=== PATIENT | male | born 1960 | race Caucasian/White ===

== ENCOUNTER → 2017-12-13 | Outpatient (CLI) | payer MEDICARE, OTHER ==
[~2017-12-13] MED LIST: ACIDOPHILUS LA1 EACH PO; ALBU2.5V5 NEB; ALBU90OI INH; ALBU90OI6 INH; ALBUIS INH; AMLO5 PO; ASPI81CH PO; ATOR40TA PO; CLOP75 PO; DEEP SEA44 ML; FLUSAL5005 INH; FLUT1DIS8 INH; FOLI1 PO; FURO20 PO; HYDACE10B PO; Ipratr-Albuterol3 ML INH; LISI5 PO; LOSA25; LOSA25 PO; META800 PO; MONT4; NAPR500 PO; Naprosyn500 MG PO; OLAN5 PO; OMEP20ER; OMEPRAZOLE MAGN20 MG PO; PRED20 PO; Prilosec Otc20 MG PO; QUET25 PO; TAMS.4ER PO; THIA100 PO; TIOT18 INH; Veetids 500500 MG PO; Ventolin Soln3 ML INH; XARELTO15 MG PO
[2017-12-13 18:24] LABS: BASOPHILS ABSOLUTE AUTO 0.04 K/mm3 (0.00-0.23); BASOPHILS PERCENT AUTO 1 % (0-2); EOSINOPHILS ABSOLUTE AUTO 0.19 K/mm3 (0.00-0.68); EOSINOPHILS PERCENT AUTO 3 % (0-6); IMMATURE GRAN ABSOLUTE AUTO 0.01 K/mm3 (0.00-0.10); IMMATURE GRAN PERCENT AUTO 0 % (0-1); LYMPHOCYTES ABSOLUTE AUTO 2.62 K/mm3 (0.84-5.20); LYMPHOCYTES PERCENT AUTO 36 % (21-46); MONOCYTES ABSOLUTE AUTO 0.55 K/mm3 (0.16-1.47); MONOCYTES PERCENT AUTO 8 % (4-13); Mean Corpuscular HGB 30.1 pg (26.0-34.0); Mean Corpuscular Volume 94 fL (80-100); Mean Platelet Volume 9.7 fL (9.1-12.4); NEUTROPHILS PERCENT AUTO 54 % (41-73); Platelet Count 253 K/mm3 (150-400); RDW Coefficient Variation 13.3 % (11.7-14.2); RDW Standard Deviation 45.9 fL (35.1-46.3); Red Blood Cell Count 5.32 M/mm3 (4.30-5.90); White Blood Cell Count 7.31 K/mm3 (4.00-11.30)
[2017-12-13 18:42] LABS: Alanine Aminotransfer (ALT/SGP 32 U/L (12-78); Albumin, Blood 3.6 g/dL (3.4-5.0); Albumin/Globulin Ratio 0.9 (0.8-1.8); Alk Phos 114 U/L (50-136); Anion Gap 6 mmol/L (6-16); Aspartate Aminotrans (AST/SGOT 16 U/L (12-37); Bilirubin, Total 0.4 mg/dL (0.1-1.0); Blood Urea Nitrogen 11 mg/dL (8-24); Bun/Creatinine Ratio 10.9 (12.0-20.0); CO2, Blood 29 mmol/L (21-32); Calcium, Blood 8.7 mg/dL (8.5-10.1); Chloride, Blood 103 mmol/L (98-108); Creatinine, Blood 1.01 mg/dL (0.60-1.20); Globulin, Blood 3.9 g/dL (2.2-4.0); Glomerular Filtration Rate >60 (60-); Glucose, Blood 66 mg/dL (70-99); Potassium, Blood 4.9 mmol/L (3.5-5.5); Sodium, Blood 138 mmol/L (136-145); Total Protein, Blood 7.5 g/dL (6.4-8.2)
== END | disposition home or self-care (01) ==
LOC: LAB 12:38
PROVIDERS: Nurse Practitioner Adult Health
DX: K62.5 Hemorrhage of anus and rectum (principal); F17.200 Nicotine dependence, unspecified, uncomplicated; K21.9 Gastro-esophageal reflux disease without esophagitis; I10 Essential (primary) hypertension; J44.9 Chronic obstructive pulmonary disease, unspecified
CPT/HCPCS: 80053; 85025

== ENCOUNTER → 2018-12-26 | Outpatient (CLI) | payer MEDICARE, OTHER ==
[2018-12-26 18:36] LABS: BASOPHILS ABSOLUTE AUTO 0.05 K/mm3 (0.00-0.23); BASOPHILS PERCENT AUTO 1 % (0-2); EOSINOPHILS ABSOLUTE AUTO 0.34 K/mm3 (0.00-0.68); EOSINOPHILS PERCENT AUTO 5 % (0-6); Hematocrit 48.3 % (37.0-53.0); Hemoglobin 15.9 g/dL (13.5-17.5); IMMATURE GRAN ABSOLUTE AUTO 0.01 K/mm3 (0.00-0.10); IMMATURE GRAN PERCENT AUTO 0 % (0-1); LYMPHOCYTES PERCENT AUTO 36 % (21-46); MONOCYTES ABSOLUTE AUTO 0.62 K/mm3 (0.16-1.47); MONOCYTES PERCENT AUTO 9 % (4-13); Mean Corpuscular HGB 31.2 pg (26.0-34.0); Mean Corpuscular HGB Conc 32.9 g/dL (31.5-36.5); Mean Corpuscular Volume 95 fL (80-100); Mean Platelet Volume 10.9 fL (9.1-12.4); NEUTROPHILS ABSOLUTE AUTO 3.67 K/mm3 (1.96-9.15); NEUTROPHILS PERCENT AUTO 50 % (41-73); Platelet Count 197 K/mm3 (150-400); RDW Coefficient Variation 13.4 % (11.7-14.2); RDW Standard Deviation 47.5 fL (35.1-46.3); White Blood Cell Count 7.29 K/mm3 (4.00-11.30)
[2018-12-26 19:15] LABS: Alanine Aminotransfer (ALT/SGP 38 U/L (12-78); Albumin, Blood 4.1 g/dL (3.4-5.0); Albumin/Globulin Ratio 1.2 (0.8-1.8); Alk Phos 93 U/L (50-136); Anion Gap 8 mmol/L (6-16); Aspartate Aminotrans (AST/SGOT 21 U/L (12-37); Bilirubin, Total 0.6 mg/dL (0.1-1.0); Blood Urea Nitrogen 8 mg/dL (8-24); Bun/Creatinine Ratio 7.5 (12.0-20.0); CO2, Blood 25 mmol/L (21-32); Calcium, Blood 8.7 mg/dL (8.5-10.1); Chloride, Blood 106 mmol/L (98-108); Creatinine, Blood 1.06 mg/dL (0.60-1.20); Globulin, Blood 3.5 g/dL (2.2-4.0); Glomerular Filtration Rate >60 (60-); Glucose, Blood 97 mg/dL (70-99); Potassium, Blood 4.3 mmol/L (3.5-5.5); Sodium, Blood 139 mmol/L (136-145); Total Protein, Blood 7.6 g/dL (6.4-8.2)
[2018-12-27 16:33] LABS: CHOL/HDL RATIO 4.1; Cholesterol 164 mg/dL (50-200); HDL Cholesterol 40 mg/dL (>39); LDL/HDL RATIO 2.6; Low Density Lipoprotein Chol 102 mg/dL (0-110); Triglycerides 109 mg/dL (30-160); Very Low Density Lipoprot Chol 21 mg/dL (6-32)
== END ==
LOC: LAB 18:04 → LAB SHORT 18:04
PROVIDERS: Nurse Practitioner Family
DX: I10 Essential (primary) hypertension (principal)
CPT/HCPCS: 80053; 80061; 85025

== ENCOUNTER → 2019-11-25 | Outpatient (CLI) | payer MEDICARE, OTHER ==
[2019-11-25 17:37] LABS: BASOPHILS ABSOLUTE AUTO 0.04 K/mm3 (0.00-0.23); BASOPHILS PERCENT AUTO 0 % (0-2); EOSINOPHILS ABSOLUTE AUTO 0.28 K/mm3 (0.00-0.68); EOSINOPHILS PERCENT AUTO 3 % (0-6); Hematocrit 52.1 % (37.0-53.0); Hemoglobin 16.3 g/dL (13.5-17.5); IMMATURE GRAN ABSOLUTE AUTO 0.02 K/mm3 (0.00-0.10); IMMATURE GRAN PERCENT AUTO 0 % (0-1); LYMPHOCYTES ABSOLUTE AUTO 3.11 K/mm3 (0.84-5.20); LYMPHOCYTES PERCENT AUTO 32 % (21-46); MONOCYTES PERCENT AUTO 7 % (4-13); Mean Corpuscular HGB 30.1 pg (26.0-34.0); Mean Corpuscular HGB Conc 31.3 g/dL (31.5-36.5); Mean Corpuscular Volume 96 fL (80-100); Mean Platelet Volume 10.9 fL (9.1-12.4); NEUTROPHILS ABSOLUTE AUTO 5.54 K/mm3 (1.96-9.15); NEUTROPHILS PERCENT AUTO 57 % (41-73); Platelet Count 206 K/mm3 (150-400); RDW Coefficient Variation 13.1 % (11.7-14.2); RDW Standard Deviation 46.5 fL (35.1-46.3); Red Blood Cell Count 5.42 M/mm3 (4.30-5.90); White Blood Cell Count 9.69 K/mm3 (4.00-11.30)
[2019-11-25 17:58] LABS: Alanine Aminotransfer (ALT/SGP 37 U/L (12-78); Alk Phos 92 U/L (50-136); Anion Gap 5 mmol/L (6-16); Aspartate Aminotrans (AST/SGOT 17 U/L (12-37); Bilirubin, Total 0.5 mg/dL (0.1-1.0); Blood Urea Nitrogen 20 mg/dL (8-24); CHOL/HDL RATIO 4.4; CO2, Blood 30 mmol/L (21-32); Calcium, Blood 9.4 mg/dL (8.5-10.1); Chloride, Blood 102 mmol/L (98-108); Cholesterol 166 mg/dL (50-200); Glucose, Blood 88 mg/dL (70-99); HDL Cholesterol 38 mg/dL (>39); LDL Direct Measurement 105 mg/dL (0-130); LDL/HDL RATIO 2.9; Low Density Lipoprotein Chol 110 mg/dL (0-110); Potassium, Blood 4.5 mmol/L (3.5-5.5); Sodium, Blood 137 mmol/L (136-145); Triglycerides 88 mg/dL (30-160); Very Low Density Lipoprot Chol 17 mg/dL (6-32)
[2019-11-25 18:13] LABS: Creatinine, Blood 1.25 mg/dL (0.60-1.20); Glomerular Filtration Rate >60 (60-)
== END | disposition home or self-care (01) ==
LOC: LAB SHORT 14:55 → LAB 14:55
PROVIDERS: Nurse Practitioner Family
DX: I10 Essential (primary) hypertension (principal); E78.2 Mixed hyperlipidemia
CPT/HCPCS: 80053; 80061; 83721; 85025

== ENCOUNTER 2020-11-08 09:59 | Inpatient (IN) | payer MEDICARE, OTHER ==
[~2020-11-08] VITALS: Ht 170.2 cm; Wt 79.8 kg
[2020-11-08 10:22] LABS: BASOPHILS ABSOLUTE AUTO 0.01 K/mm3 (0.00-0.23); BASOPHILS PERCENT AUTO 0 % (0-2); EOSINOPHILS ABSOLUTE AUTO 0.01 K/mm3 (0.00-0.68); EOSINOPHILS PERCENT AUTO 0 % (0-6); Hematocrit 45.5 % (37.0-53.0); Hemoglobin 14.5 g/dL (13.5-17.5); IMMATURE GRAN ABSOLUTE AUTO 0.14 K/mm3 (0.00-0.10); IMMATURE GRAN PERCENT AUTO 1 % (0-1); LYMPHOCYTES ABSOLUTE AUTO 1.08 K/mm3 (0.84-5.20); LYMPHOCYTES PERCENT AUTO 8 % (21-46); MONOCYTES ABSOLUTE AUTO 0.63 K/mm3 (0.16-1.47); MONOCYTES PERCENT AUTO 5 % (4-13); Mean Corpuscular HGB 30.3 pg (26.0-34.0); Mean Corpuscular HGB Conc 31.9 g/dL (31.5-36.5); Mean Corpuscular Volume 95 fL (80-100); Mean Platelet Volume 8.8 fL (9.1-12.4); NEUTROPHILS ABSOLUTE AUTO 11.18 K/mm3 (1.96-9.15); NEUTROPHILS PERCENT AUTO 86 % (41-73); Platelet Count 322 K/mm3 (150-400); RDW Coefficient Variation 13.4 % (11.7-14.2); RDW Standard Deviation 47.4 fL (35.1-46.3); Red Blood Cell Count 4.78 M/mm3 (4.30-5.90); White Blood Cell Count 13.05 K/mm3 (4.00-11.30)
[2020-11-08] MEDS ORDERED: SYMBICORT 160-4.6 GM INH (10:30)
[2020-11-08] MEDS ORDERED: LOSA50 PO (10:31)
[2020-11-08] MEDS ORDERED: OMEP20ER PO (10:31)
[2020-11-08] MEDS ORDERED: FLUT1DIS2 (10:32)
[2020-11-08] MEDS ORDERED: MONT10T PO (10:32)
[2020-11-08 10:41] LABS: Alanine Aminotransfer (ALT/SGP 35 U/L (12-78); Albumin/Globulin Ratio 1.1 (0.8-1.8); Alk Phos 79 U/L (50-136); Anion Gap 9 mmol/L (6-16); Aspartate Aminotrans (AST/SGOT 20 U/L (12-37); Bilirubin, Total 0.4 mg/dL (0.1-1.0); Blood Urea Nitrogen 24 mg/dL (8-24); Bun/Creatinine Ratio 19.8 (12.0-20.0); CO2, Blood 21 mmol/L (21-32); Chloride, Blood 104 mmol/L (98-108); Creatinine, Blood 1.21 mg/dL (0.60-1.20); Globulin, Blood 3.7 g/dL (2.2-4.0); Glomerular Filtration Rate >60 (60-); Glucose, Blood 134 mg/dL (70-99); Potassium, Blood 4.5 mmol/L (3.5-5.5); Sodium, Blood 134 mmol/L (136-145); Total Protein, Blood 7.7 g/dL (6.4-8.2); Troponin I <0.015 ng/mL (0.000-0.040)
[2020-11-08 11:39] LABS: Influenza A, PCR Negative (NEGATIVE); Influenza B, PCR Negative (NEGATIVE); Resp Syncytial Virus, PCR Negative (NEGATIVE); SARS-Cov-2 (COVID-19) PCR, MMC Negative (NEGATIVE)
[2020-11-08] MEDS ORDERED: Ventolin/Prove6.7 GM INH (14:15)
[2020-11-08] MEDS ORDERED: Cetirizine HCl10 MG PO (14:15)
[2020-11-08 14:43] LABS: PCO2 Arterial 38.1 mmHg (35-45); PO2 Arterial 84.6 mmHg (80-100); pH Blood Arterial 7.38 (7.35-7.45)
--- NOTE | 2020-11-08 19:21 | NUR ---
PT ARRIVED IN THE UNIT VIA STRETCHER FROM [facility], REPORT RECEIVED FROM RHIANNA LEMUS. PT IS HERE FOR COPD EXA. PT WAS ON RA UPON ARRIVAL SATS ABOVE 95% PT HAS SHALLOW BREATHING WITH ACCESSORY MUSCLE USE, PT C/O SOB/SOB WITH PAIN WORSENS WITH COUGH. 1L OF O2 APPLIED FOR SUPPORT PT DESATS ONE TIME TO LOW 90'S DR HERNANDEZ IS AWARE ORDERED ANXIETY MEDS WELL. HRR SINUS TACH 110'S, BP SYSTOLIC 150'S, AFEBRILE. PT WAS GIVEN IV SOLUMEDROL. PT IS ALERT AND ORIENTED AT BASELINE SBA FOR TRANSFERS. NO OTHER ISSUES ENCOUNTERED UNTIL THE END OF SHIFT, PT WAS ABLE TO TOLERATE EATING DINNER WITHOUT DESATING. PT REMAINS IN BED CALL LIGHTS IN REACH REPORT GIVEN TO MAGEN LEMUS
[2020-11-09 03:49] LABS: BASOPHILS ABSOLUTE AUTO 0.02 K/mm3 (0.00-0.23); BASOPHILS PERCENT AUTO 0 % (0-2); EOSINOPHILS ABSOLUTE AUTO 0.01 K/mm3 (0.00-0.68); EOSINOPHILS PERCENT AUTO 0 % (0-6); Hematocrit 45.8 % (37.0-53.0); Hemoglobin 14.4 g/dL (13.5-17.5); IMMATURE GRAN PERCENT AUTO 1 % (0-1); LYMPHOCYTES ABSOLUTE AUTO 0.88 K/mm3 (0.84-5.20); LYMPHOCYTES PERCENT AUTO 6 % (21-46); MONOCYTES ABSOLUTE AUTO 0.38 K/mm3 (0.16-1.47); MONOCYTES PERCENT AUTO 3 % (4-13); Mean Corpuscular HGB 29.9 pg (26.0-34.0); Mean Corpuscular HGB Conc 31.4 g/dL (31.5-36.5); Mean Corpuscular Volume 95 fL (80-100); Mean Platelet Volume 8.8 fL (9.1-12.4); NEUTROPHILS PERCENT AUTO 90 % (41-73); Platelet Count 313 K/mm3 (150-400); RDW Coefficient Variation 13.5 % (11.7-14.2); RDW Standard Deviation 47.9 fL (35.1-46.3); Red Blood Cell Count 4.82 M/mm3 (4.30-5.90); White Blood Cell Count 15.49 K/mm3 (4.00-11.30)
[2020-11-09 04:09] LABS: Alanine Aminotransfer (ALT/SGP 32 U/L (12-78); Alk Phos 79 U/L (50-136); Anion Gap 5 mmol/L (6-16); Aspartate Aminotrans (AST/SGOT 20 U/L (12-37); Bilirubin, Total 0.5 mg/dL (0.1-1.0); Blood Urea Nitrogen 28 mg/dL (8-24); CO2, Blood 27 mmol/L (21-32); Chloride, Blood 103 mmol/L (98-108); Creatinine, Blood 1.27 mg/dL (0.60-1.20); Globulin, Blood 3.9 g/dL (2.2-4.0); Glomerular Filtration Rate >60 (60-); Glucose, Blood 127 mg/dL (70-99); Potassium, Blood 4.7 mmol/L (3.5-5.5); Sodium, Blood 135 mmol/L (136-145); Total Protein, Blood 7.9 g/dL (6.4-8.2)
--- NOTE | 2020-11-09 05:55 | NUR ---
SHIFT SUMMARY PT ALERT AND ORIENTED X 4. PT ANXIOUS AT TIMES. HR TACHYCARDIC AT TIMES. BP STABLE. PT REPORTS PAIN T/O LUNGS AND INTO BACK. STATES PAIN "HAS LASTED FOR YEARS, WORSE D/T FIRES." PHYSICIAN INFORMED OF PT'S PAIN LEVEL. MEDICATION PRESCRIBED PER EMAR. OXYGEN SATURATION MAINTAINED ABOVE 92% ON 1-2 L OF OXYGEN VIA NC. PT UNABLE TO SLEEP T/O SHIFT. PT ABLE TO TURN SELF NEEDED. SBA. WILL CONTINUE TO MONITOR UNTIL REPORT GIVEN TO DAYSHIFT RN.
--- NOTE | 2020-11-09 10:17 | NUR ---
pt npo, just ice chips and medications, informed pt, wrote on board, call received from [employer], pt disconected from IV and assisted into for transport to ct scan
--- NOTE | 2020-11-09 19:28 | NUR ---
a+o, no acute changes noted during shift, continues to need to be coached on dealing with pain and breathing, call light in reach, medicated as prescribed, bsr shared with noc nurse and pt
--- NOTE | 2020-11-10 06:22 | NUR ---
SHIFT SUMMARY PT ALERT AND ORIENTED X 4. PT ANXIOUS AT TIMES. MEDICATED PER EMAR. PT PAINFUL AT TIMES IN BACK AND LUNGS. STATES PAIN HAS LASTED "LONG TIME, SINCE FIRES." MEDICATED PER EMAR. PT IMPROVES WITH THESE INTERVENTIONS. PT ABLE TO SLEEP T/O SHIFT IN RECLINER CHAIR. HR STABLE. BP STABLE. REPORTS NO CP OR PRESSURE. PT ABLE TO TURN SELF NEEDED FOR COMFORT. WILL CONTINUE TO MONITOR UNTIL REPORT GIVEN TO DAYSHIFT RN.
--- NOTE | 2020-11-10 11:57 | NUR ---
ASSUMED CARE FROM NOC RN THIS MORNING PT HAS BEEN ANXIOUS AND REPORTS FEELING PAIN IN HIS MUSCLES THROUGHOUT HIS ABD AND BACK FROM COUGHING; PT STATES "IT'S NOT NEW, IT JUST GOT WORSE AFTER THE FIRES, I LOST MY TRAILER HOME DURING THEM" PT HAS BEEN GIVEN PAIN AND ANXIETY MEDICATIONS AND IS STILL MOANING AND YELLING IN PAIN; A PHONE CALL WILL BE MADE TO TOUCH BASE WITH DR. HERNANDEZ. VS STABLE, PT TOOK MORNING MEDICATIONS AND HAS BEEN COOPERATIVE WITH CARE. PT HAS EXPIRATORY WHEEZING AND HAS MAINTAINED SAT ABOVE 92% ON 1-2L OF O2 VIA NC. PT CALLS APPROPRIATELY
--- NOTE | 2020-11-10 14:59 | NUR ---
Met pt. sitting up in a chair and watching T.V pt. reports doing fine encouraged pt and offered prayers
--- NOTE | 2020-11-10 18:54 | NUR ---
SHIFT SUMMARY PT HAS BEEN PAINFUL THROUGHOUT THE DAY, MOANING AND GROANING, THE TRAMADOL HELPED REPORTED BY THE PT. PT STATES HIS PAIN IS IN HIS ABD AND BACK AND COMES ON WHEN HE IS COUGHING DUE TO THE COPD. VS HAVE BEEN STABLE, NSR, FREQUENT NEB TREATMENTS HE HAS EXPIRATORY WHEEZING. PT SPENT THE DAY IN THE CHAIR. FREQUENT OFFERS FOR REPOSITIONING, HEATING PADS, PILLOWS TO SQUEEZE WHEN COUGHING WERE ALL MADE AND THE PT REFUSED STATING "NONE OF IT WORKS" PT IS NOW IN BED RESTING
--- NOTE | 2020-11-10 21:40 | NUR ---
called Nathan LEMUS for transfer report on PT being tx for copd with steroids nebs & oxygen. Await transfer to room 303
--- NOTE | 2020-11-10 21:45 | NUR ---
REPORT GIVEN TO MARIAH ACLL ON MEDICAL FLOOR.
[2020-11-11 05:47] LABS: BASOPHILS ABSOLUTE AUTO 0.03 K/mm3 (0.00-0.23); BASOPHILS PERCENT AUTO 0 % (0-2); EOSINOPHILS ABSOLUTE AUTO 0.01 K/mm3 (0.00-0.68); EOSINOPHILS PERCENT AUTO 0 % (0-6); Hematocrit 49.1 % (37.0-53.0); Hemoglobin 15.1 g/dL (13.5-17.5); IMMATURE GRAN ABSOLUTE AUTO 0.19 K/mm3 (0.00-0.10); IMMATURE GRAN PERCENT AUTO 1 % (0-1); LYMPHOCYTES ABSOLUTE AUTO 0.65 K/mm3 (0.84-5.20); LYMPHOCYTES PERCENT AUTO 4 % (21-46); MONOCYTES ABSOLUTE AUTO 0.54 K/mm3 (0.16-1.47); MONOCYTES PERCENT AUTO 3 % (4-13); Mean Corpuscular HGB 29.4 pg (26.0-34.0); Mean Corpuscular HGB Conc 30.8 g/dL (31.5-36.5); Mean Corpuscular Volume 96 fL (80-100); Mean Platelet Volume 9.1 fL (9.1-12.4); NEUTROPHILS ABSOLUTE AUTO 16.19 K/mm3 (1.96-9.15); NEUTROPHILS PERCENT AUTO 92 % (41-73); Platelet Count 310 K/mm3 (150-400); RDW Coefficient Variation 13.4 % (11.7-14.2); Red Blood Cell Count 5.13 M/mm3 (4.30-5.90); White Blood Cell Count 17.61 K/mm3 (4.00-11.30)
[2020-11-11 06:06] LABS: Anion Gap 6 mmol/L (6-16); Blood Urea Nitrogen 53 mg/dL (8-24); Bun/Creatinine Ratio 42.1 (12.0-20.0); CO2, Blood 30 mmol/L (21-32); Calcium, Blood 8.8 mg/dL (8.5-10.1); Chloride, Blood 101 mmol/L (98-108); Creatinine, Blood 1.26 mg/dL (0.60-1.20); Glomerular Filtration Rate >60 (60-); Glucose, Blood 121 mg/dL (70-99); Potassium, Blood 4.2 mmol/L (3.5-5.5); Sodium, Blood 137 mmol/L (136-145)
--- NOTE | 2020-11-11 17:16 | NUR ---
SHIFT SUMMARY- PT ALERT, PLESANT AND COOPERATIVE. HE IS EATING AND DRINKING WELL. HIS LUNG SOUNDS ARE WHEEZY. HE IS USING THE URINAL AT BEDSIDE. PRN PAIN MEDICATION PRN. HE IS WORKING WITH RT RECIEVING BREATHING TREATMENTS. HE WAS INSTRUCTED ON USING I.S. AND FLUTTER BY RT TODAY. HIS BED IS IN THE LOW POSITION AND HIS CALL LIGHT IS WITHIN REACH.
--- NOTE | 2020-11-12 04:27 | NUR ---
60 year old [place] continues on oxygen 1 l nc for dyspnea. He is less anxious more alert this shift. Up to BSC or uses urinal for toileting. Medicated several times for pain with helpful effect, once for anxiety with good relief. Appears to lack support recently lost home in [place]. DC planning for safe dc plan needed.
--- NOTE | 2020-11-12 16:45 | NUR ---
SHIFT SUMMARY- PT IS ALERT, PLESANT AND COOPERATIVE. HE IS EATING AND DRINKING WELL. WENT FOR A XRAY THIS MORNING. HE IS RECIEVING PAIN MEDICATIONS NEEDED. WORKING WITH RT. BED IS IN THE LOW POSITION AND THE CALL LIGHT IS WITHIN REACH.
--- NOTE | 2020-11-13 04:43 | NUR ---
SHIFT SUMMARY ASSUMED CARE OF PT AT 1900. PT IS A/OX3, PT MUMBLES WHEN HE TALKS. HEART SOUNDS REGULAR, LUNG SOUNDS HAVE EXPIRATORY WHEEZES, PT IS ON 1L NC [place], PT HAS HAD BREATHING TREATMENTS THIS PM FROM RT. PT HAS PAIN IN HIS R CHEST, PT STATES THAT HE HAS A CXR YESTERDAY BUT STATES THAT HE DOESNT KNOW THE RESULTS, PT MEDICATED PER EMAR FOR PAIN. PT IS 1P TO BS AND USES URINAL. PT HAS PITTING EDEMA IN EXTREMITES. PT DID NOT SLEEP VERY WELL DURING THE NIGHT. PT ONLY SLEPT ABOUT 3 HOURS. CALL LIGHT IN REACH, BED IN LOWEST POSTION.
[2020-11-13 04:57] LABS: BASOPHILS ABSOLUTE AUTO 0.02 K/mm3 (0.00-0.23); BASOPHILS PERCENT AUTO 0 % (0-2); EOSINOPHILS ABSOLUTE AUTO 0.01 K/mm3 (0.00-0.68); EOSINOPHILS PERCENT AUTO 0 % (0-6); Hematocrit 44.9 % (37.0-53.0); Hemoglobin 14.5 g/dL (13.5-17.5); IMMATURE GRAN ABSOLUTE AUTO 0.14 K/mm3 (0.00-0.10); IMMATURE GRAN PERCENT AUTO 1 % (0-1); LYMPHOCYTES ABSOLUTE AUTO 0.63 K/mm3 (0.84-5.20); LYMPHOCYTES PERCENT AUTO 5 % (21-46); MONOCYTES ABSOLUTE AUTO 0.59 K/mm3 (0.16-1.47); MONOCYTES PERCENT AUTO 5 % (4-13); Mean Corpuscular HGB 30.5 pg (26.0-34.0); Mean Corpuscular HGB Conc 32.3 g/dL (31.5-36.5); Mean Corpuscular Volume 95 fL (80-100); Mean Platelet Volume 9.5 fL (9.1-12.4); NEUTROPHILS ABSOLUTE AUTO 10.44 K/mm3 (1.96-9.15); NEUTROPHILS PERCENT AUTO 88 % (41-73); Platelet Count 260 K/mm3 (150-400); RDW Coefficient Variation 13.3 % (11.7-14.2); RDW Standard Deviation 46.5 fL (35.1-46.3); Red Blood Cell Count 4.75 M/mm3 (4.30-5.90); White Blood Cell Count 11.83 K/mm3 (4.00-11.30)
[2020-11-13 05:27] LABS: Albumin, Blood 3.1 g/dL (3.4-5.0); Anion Gap 5 mmol/L (6-16); Blood Urea Nitrogen 48 mg/dL (8-24); Bun/Creatinine Ratio 48.6 (12.0-20.0); CO2, Blood 32 mmol/L (21-32); Calcium, Blood 8.3 mg/dL (8.5-10.1); Chloride, Blood 102 mmol/L (98-108); Creatinine, Blood 0.99 mg/dL (0.60-1.20); Glomerular Filtration Rate >60 (60-); Glucose, Blood 120 mg/dL (70-99); Phosphorus, Blood 3.1 mg/dL (2.5-4.9); Potassium, Blood 4.1 mmol/L (3.5-5.5); Sodium, Blood 139 mmol/L (136-145)
--- NOTE | 2020-11-13 18:34 | NUR ---
SHIFT SUMMARY. A&OX3, PLEASANT AND COOPERATIVE WITH CARE. PT WITH PAIN TO R CHEST WALL/RIBS THAT INCREASES WITH COUGHING, PT REPORTED PAIN REDUCED AFTER APPLICATION OF LIDOCAINE PATCH. PT REPORTEDLY "CHOKED" ON WATER AND WAS FOUND COUGHING AGGRESSIVLEY, PAIN INCREASED, PRN OXYCODONE GIVEN WITH GOOD RELIEF. LUNGS WITH SLIGHT WHEEZING TO R LUNG GOMES. CONTINUES WITH 1L O2 NC. NO OTHER CHANGES OR CONCERNS.
--- NOTE | 2020-11-14 04:23 | NUR ---
SHIFT SUMMARY A/O, ABLE TO MAKE NEEDS KNOWN. COOPERATIVE WITH CARE. CALLS AND ANSWERS QUESTIONS APPROPRIATELY. C/O PAIN/DISCOMFORT TO RCW; MEDICATED PER EMAR. INDEPENDENT WITH URINAL AND TO BSC. DID NOT APPEAR TO REST MUCH OVERNIGHT. BT REQUESTS FROM RT T/O NIGHT. CONTINUES TO HAVE EXPIRATORY WHEEZING; CONTINUES TO UTILIZE INCENTIVE SPIROMETER AND FLUTTER VALVE. NO OTHER ACUTE CHANGES NOTED OVERNIGHT. BED REMAINS IN LOWEST POSITION. CALL LIGHT AND BELONGINGS WITHIN REACH. REPORT TO ONCOMING RN.
[2020-11-14] MEDS ORDERED: ACET325 PO (16:26)
[2020-11-14] MEDS ORDERED: ASPI81CH PO (16:26)
[2020-11-14] MEDS ORDERED: TUMS500 MG PO (16:27)
[2020-11-14] MEDS ORDERED: BUSP5 PO (16:27)
[2020-11-14] MEDS ORDERED: GUAI600T33 PO (16:28)
[2020-11-14] MEDS ORDERED: LIDO700A20 TOP (16:29)
[2020-11-14] MEDS ORDERED: ROXICODONE5 MG PO (16:29)
[2020-11-14] MEDS ORDERED: Prednisone10 MG PO (16:30)
--- NOTE | 2020-11-14 18:07 | NUR ---
DISCHARGE NOTE PT A&O. PT USED URINAL WHILE IN ROOM. PT WORKED WITH RT DURING THE SHIFT AND WAS DETERMINED HE DID NOT NEED O2 WHILE AT HOME. PT WAS FREINDLY AND COPERATIVE DURING SHIFT. REMOVED PT IV AND WENT OVER PT DISCHARGE PACKET WITH HIM. DISCUSSED NEW MED WITH PT AND LAST TIME MEDICATION WAS GIVEN. PT WAS PICKED UP BY FRIEND AND TAKEN OFF THE FLOOR VIA WHEELCHAIR BY THE COMMERCIAL COUNSEL TO THE FRIENDS CAR. PT TOOK BELONINGS WITH HIM. PT GIVEN HARD SCRIPT AND PLACED IT IN PERSONAL BAG.
== END 2020-11-14 18:03 | disposition home or self-care (01) | DRG 189 ==
LOC: ER 09:59 → PCU 14:05 → MEDS 11-10 22:21
PROVIDERS: Emergency Medicine; Internal Medicine; ADMIT Internal Medicine
DX: J96.01 Acute respiratory failure with hypoxia (principal); Z86.73 Personal history of transient ischemic attack (TIA), and cerebral infarction without residual deficits; F17.210 Nicotine dependence, cigarettes, uncomplicated; J43.9 Emphysema, unspecified; Z20.828 Contact with and (suspected) exposure to other viral communicable diseases; R07.81 Pleurodynia; I10 Essential (primary) hypertension; F41.1 Generalized anxiety disorder; J20.9 Acute bronchitis, unspecified
CPT/HCPCS: 0241U; 36415; 36600; 71045; 71046; 80048; 80053; 80069; 82803; 83880; 84145; 84484; 85025; 93005; 93010; 94640; 94644; 94667; 94668; 94760; 94761; 94762; 96365; 96366; 97116; 97161; 97165; 99285-25; 99406; A9270; A9270-GY; J1650; J1885; J2920; J2930; J3475

== ENCOUNTER 2021-05-11 10:32 | Inpatient (IN) | payer MEDICARE, OTHER ==
[~2021-05-11] VITALS: Ht 170.2 cm; Wt 77.3 kg
[~2021-05-11 10:32] MED LIST changes: +ACET325 PO; +Aspirin EC81 MG PO; +BUSP5 PO; +Cetirizine HCl10 MG PO; +FLUT1DIS2; +GUAI600T33 PO; +LIDO700A20 TOP; +LOSA50 PO; +MONT10T PO; +OMEP20ER PO; +Prednisone10 MG PO; +ROXICODONE5 MG PO; +SYMBICORT 160-4.6 GM INH; +TUMS500 MG PO; +Ventolin/Prove6.7 GM INH
[2021-05-11] MEDS ORDERED: BENADRYL25 MG PO (10:49)
[2021-05-11 11:29] LABS: BASOPHILS ABSOLUTE AUTO 0.04 K/mm3 (0.00-0.23); BASOPHILS PERCENT AUTO 0 % (0-2); EOSINOPHILS ABSOLUTE AUTO 0.04 K/mm3 (0.00-0.68); EOSINOPHILS PERCENT AUTO 0 % (0-6); Hematocrit 44.8 % (37.0-53.0); Hemoglobin 14.3 g/dL (13.5-17.5); IMMATURE GRAN ABSOLUTE AUTO 0.18 K/mm3 (0.00-0.10); IMMATURE GRAN PERCENT AUTO 1 % (0-1); LYMPHOCYTES ABSOLUTE AUTO 1.06 K/mm3 (0.84-5.20); LYMPHOCYTES PERCENT AUTO 5 % (21-46); MONOCYTES ABSOLUTE AUTO 1.36 K/mm3 (0.16-1.47); MONOCYTES PERCENT AUTO 7 % (4-13); Mean Corpuscular HGB Conc 31.9 g/dL (31.5-36.5); Mean Corpuscular Volume 94 fL (80-100); Mean Platelet Volume 9.4 fL (9.1-12.4); NEUTROPHILS ABSOLUTE AUTO 17.02 K/mm3 (1.96-9.15); NEUTROPHILS PERCENT AUTO 86 % (41-73); Platelet Count 273 K/mm3 (150-400); RDW Coefficient Variation 14.7 % (11.7-14.2); RDW Standard Deviation 51.1 fL (35.1-46.3); Red Blood Cell Count 4.76 M/mm3 (4.30-5.90)
[2021-05-11 12:02] LABS: Albumin, Blood 3.4 g/dL (3.4-5.0); Albumin/Globulin Ratio 0.7 (0.8-1.8); Bilirubin, Total 0.8 mg/dL (0.1-1.0); Bun/Creatinine Ratio 13.1 (12.0-20.0); Calcium, Blood 8.9 mg/dL (8.5-10.1); Creatinine, Blood 1.6 mg/dL (0.60-1.20); Globulin, Blood 4.8 g/dL (2.2-4.0); Potassium, Blood 4.2 mmol/L (3.5-5.5); Total Protein, Blood 8.2 g/dL (6.4-8.2)
[2021-05-11] MEDS ORDERED: IPRAT-ALBUT 0.5-3 ML NEB (12:21)
[2021-05-11] MEDS ORDERED: Ventolin/Prove6.7 GM INH (12:23)
[2021-05-11 12:48] LABS: PCO2 Arterial 39.2 mmHg (35-45); PO2 Arterial 134 mmHg (80-100); pH Blood Arterial 7.39 (7.35-7.45)
[2021-05-11] MEDS ORDERED: OMEP20ER PO (17:12)
--- NOTE | 2021-05-11 19:16 | NUR ---
PT ADMITTED TO PCU FROM ED FOR COPD EXACERBATION. PT ARRIVES A&OX4, TACHYPNEIC, RECEIVING O2 VIA NC AT 5 L/MIN AND MAINTAINING O2 SATS >92%, EXP WHEEZES T/OUT, SINUS TACH ON MONITOR. PT STATES IMPROVEMENT TO CHEST PAIN AND SOB THAT HE FELT PRIOR TO ADMISSION. CARDIAC DIET HAS BEEN ORDERD, PT PROVIDED WITH DINNER TRAY. NO SKIN ISSUES NOTED, NS INFUSING W/OUT DIFFICULTY. REPORT HAS BEEN GIVEN TO MARIAH HOPKINS.
[2021-05-11 20:48] LABS: Source, Urine Clean Catch
[2021-05-11 20:51] LABS: Bilirubin, Urine Neg (Neg); Blood, Urine 2+ (Neg); Glucose Qualitative, Urine Neg (Neg); Ketones, Urine 1+ (Neg); Leukocyte Esterase, Urine 3+ (Neg); Nitrite, Urine Pos (Neg); Protein, Urine 2+ (Neg); Urobilinogen, Urine NORM (Normal)
[2021-05-11 21:01] LABS: Appearance, Urine Hazy (Clear); Color, Urine Yellow (P-Yellow)
[2021-05-11 21:03] LABS: Bacteria Many /hpf; Squamous Epithelial Cells Rare /hpf (Few); White Blood Cells, Urine TNTC /hpf (0-5)
[2021-05-11 21:11] LABS: U Amphetamine Screen Not Detected; U Barbituate Screen Not Detected; U Benzodiazapine Screen Not Detected; U Buprenorphine Screen Not Detected; U Cannabinoids Screen DETECTED; U Cocaine Screen Not Detected; U Methadone Screen Not Detected; U Methamphetamine Screen Not Detected; U Opiates Screen DETECTED; U Oxycodone Screen Not Detected; U Phencyclidine Screen Not Detected; U Propoxyphene Screen Not Detected
[2021-05-12 01:31] LABS: BASOPHILS ABSOLUTE AUTO 0.01 K/mm3 (0.00-0.23); BASOPHILS PERCENT AUTO 0 % (0-2); EOSINOPHILS PERCENT AUTO 0 % (0-6); Hematocrit 42.4 % (37.0-53.0); Hemoglobin 13.6 g/dL (13.5-17.5); IMMATURE GRAN ABSOLUTE AUTO 0.05 K/mm3 (0.00-0.10); IMMATURE GRAN PERCENT AUTO 0 % (0-1); LYMPHOCYTES ABSOLUTE AUTO 0.62 K/mm3 (0.84-5.20); LYMPHOCYTES PERCENT AUTO 5 % (21-46); MONOCYTES ABSOLUTE AUTO 0.23 K/mm3 (0.16-1.47); MONOCYTES PERCENT AUTO 2 % (4-13); Mean Corpuscular HGB 30.4 pg (26.0-34.0); Mean Corpuscular HGB Conc 32.1 g/dL (31.5-36.5); Mean Corpuscular Volume 95 fL (80-100); Mean Platelet Volume 9.4 fL (9.1-12.4); NEUTROPHILS ABSOLUTE AUTO 11.36 K/mm3 (1.96-9.15); NEUTROPHILS PERCENT AUTO 93 % (41-73); Platelet Count 247 K/mm3 (150-400); RDW Coefficient Variation 14.6 % (11.7-14.2); RDW Standard Deviation 51.3 fL (35.1-46.3); Red Blood Cell Count 4.47 M/mm3 (4.30-5.90); White Blood Cell Count 12.27 K/mm3 (4.00-11.30)
[2021-05-12 01:51] LABS: Alanine Aminotransfer (ALT/SGP 17 U/L (12-78); Albumin, Blood 3.1 g/dL (3.4-5.0); Albumin/Globulin Ratio 0.7 (0.8-1.8); Alk Phos 85 U/L (50-136); Anion Gap 9 mmol/L (6-16); Aspartate Aminotrans (AST/SGOT 19 U/L (12-37); Bilirubin, Total 0.3 mg/dL (0.1-1.0); Blood Urea Nitrogen 27 mg/dL (8-24); Bun/Creatinine Ratio 19.7 (12.0-20.0); CO2, Blood 22 mmol/L (21-32); Calcium, Blood 8.4 mg/dL (8.5-10.1); Chloride, Blood 104 mmol/L (98-108); Creatinine, Blood 1.37 mg/dL (0.60-1.20); Globulin, Blood 4.7 g/dL (2.2-4.0); Glomerular Filtration Rate 56 (60-); Glucose, Blood 147 mg/dL (70-99); Magnesium, Blood 2.3 mg/dL (1.6-2.4); Sodium, Blood 135 mmol/L (136-145); Total Protein, Blood 7.8 g/dL (6.4-8.2); Troponin I <0.015 ng/mL (0.000-0.040)
--- NOTE | 2021-05-12 19:32 | NUR ---
SHIFT SUMMARY PT HAS BEEN COOPERATIVE WITH CARE TODAY. PT HAS RECEIVED FREQUENT DUONEBS AND AT LEAST 2, HOUR LONG ALBUTERAL NEB TREATMENTS. PT CONTINUES TO HAVE WHEEZING AND INCREASED RR. VS OTHERWISE STABLE. PT HAD SOME BOUTS OF ANXIETY TODAY BUT WAS ABLE TO CALM HIMSELF INDEPENDENTLY. PT ALSO REPORTED A HEADACHE AND WAS TREATED PER EMAR. PT IS RESTING IN BED AT THIS TIME
--- NOTE | 2021-05-13 05:33 | NUR ---
SHIFT SUMMARY PT A&OX4, PT ANXIOUS, APPEARS SHAKY, "AMPED UP". SP02>92% ON 5L NC. PT CONSTANTLY ASKED FOR BREATHING TREATMENTS T/O NIGHT.RT IN ROOM MULTIPLE TIMES. TELEMETRY READS ST/SR W/ PACS. HR 90'S-120'S. HR INCREASED TO 130S WHEN UP TO THE BSC. PT C/O OF CHEST/BACK PAIN, STATES D/T BREATHING AND COUGHING LABOR. MEDICATED PER EMAR. PT C/O OF HEART BURN. CALL PLACED TO MD HERNANDEZ. MD HERNANDEZ W/ ORDERS FOR TUMS. TOOK PT TUMS AND PT REFUSED, STATES HE "IS JUST BACKED UP". STATES HE HASNT HAD A BM SINCE MONDAY. PT MOANED/ C/O OF BREATHING T/O SHIFT, THOUGH SATS WERE ABOVE 92%. PT MADE COMMENTS LIKE, "THEY ASKED IN THE ER IF I WANT THEM TO SAVE MY LIFE, I SAID YES. NOW I WOULD SAY NO." AND "IF I HAD A GUN, I WOULD SHOOT MYSELF." CALL PLACED TO MD HERNANDEZ. MD HERNANDEZ W/ ORDERS FOR XANEX, SEE EMAR. FLUIDS INFUSED THIS SHIFT PER EMAR. PT DID NOT SLEEP T/O SHIFT, SAT UP IN BED AND WATCHED HIS PHONE. CALL LIGHT IN REACH. WILL GIVE REPORT TO ONCOMING NURSE.
[2021-05-13 08:30] LABS: BASOPHILS ABSOLUTE AUTO 0.01 K/mm3 (0.00-0.23); BASOPHILS PERCENT AUTO 0 % (0-2); EOSINOPHILS PERCENT AUTO 0 % (0-6); Hematocrit 40.6 % (37.0-53.0); Hemoglobin 12.6 g/dL (13.5-17.5); IMMATURE GRAN ABSOLUTE AUTO 0.09 K/mm3 (0.00-0.10); IMMATURE GRAN PERCENT AUTO 1 % (0-1); LYMPHOCYTES ABSOLUTE AUTO 0.41 K/mm3 (0.84-5.20); LYMPHOCYTES PERCENT AUTO 3 % (21-46); MONOCYTES ABSOLUTE AUTO 0.36 K/mm3 (0.16-1.47); MONOCYTES PERCENT AUTO 3 % (4-13); Mean Corpuscular HGB 30.1 pg (26.0-34.0); Mean Corpuscular Volume 97 fL (80-100); Mean Platelet Volume 9.4 fL (9.1-12.4); NEUTROPHILS PERCENT AUTO 93 % (41-73); Platelet Count 256 K/mm3 (150-400); RDW Coefficient Variation 14.7 % (11.7-14.2); RDW Standard Deviation 52.8 fL (35.1-46.3); Red Blood Cell Count 4.19 M/mm3 (4.30-5.90); White Blood Cell Count 13.17 K/mm3 (4.00-11.30)
[2021-05-13 08:47] LABS: Anion Gap 6 mmol/L (6-16); Blood Urea Nitrogen 25 mg/dL (8-24); Bun/Creatinine Ratio 21.9 (12.0-20.0); CO2, Blood 24 mmol/L (21-32); Calcium, Blood 8.3 mg/dL (8.5-10.1); Chloride, Blood 110 mmol/L (98-108); Creatinine, Blood 1.14 mg/dL (0.60-1.20); Glomerular Filtration Rate >60 (60-); Glucose, Blood 145 mg/dL (70-99); Potassium, Blood 4.1 mmol/L (3.5-5.5); Sodium, Blood 140 mmol/L (136-145)
[2021-05-13 12:28] LABS: PCO2 Arterial 60.9 mmHg (35-45); PO2 Arterial 216 mmHg (80-100); pH Blood Arterial 7.19 (7.35-7.45)
--- NOTE | 2021-05-13 12:56 | NUR ---
PT WITH SUDDEN INCREASE IN SOB DURING BREATHING TREATMENT. WHEEZING NOTED TO ALL LOBES BUT DOES NOT SOUND LIKE HE IS MOVING MUCH AIR. SPO2 READINGS IN THE 70%, MOMENTS BEFORE WHEN RT STARTED BREATHING TREATMENT PT'S SPO2 WAS READING 95%. PT HAS REMOVED LAC IV. IV REPLACED X2. BIPAP PLACED, SOLUMEDROL ADMINISTERED, ROCEPHIN INFUSING, ATIVAN ADMINISTERED. PT REPORTS BRIEF IMRPIOVEMENT WITH ATIVAN ADMINISTRATION. PT IS LESS DIAPHORETIC POST ATIVAN ADMIN AND BIPAP PLACEMENT. UNABLE TO OBTAIN ACCURATE BP. SPO2 NOW READS 94% ON BIPAP, PT WAS TRANSFERED TO ICU 7, REOPRT TO TIMOTHY LEMUS. PT'S FRIEND MERY CALLED AND NOTIFIED OF MOVE TO ICU.
--- NOTE | 2021-05-13 13:20 | NUR ---
INITIAL ASSESSMENT PATIENT ARRIVED TO UNIT AT 1232. PATIENT RESPONDING TO SOME VERBAL STIMULI. PATIENT VERY ANXIOUS. PATIENT SAYING SOME WORDS WITH GARBLED SPEECH. NURSE ABLE TO UNDERSTAND PATIENT SAYING "PLEASE DON'T LET ME " OVER AND OVER. PATIENT HAS PURPOSEFUL MOVEMENTS BUT IT NOT RESPONDING TO NURSE COMMANDS AT THIS TIME DUE TO RESPIRATORY STRESS. PATIENT AFEBRILE. LUNGS ARE WHEEZY AND TIGHT THROUGHOUT. PATIENT SATTING 90% AND GREATER ON BIPAP 14/ 10, RATE 14, 40% FIO2. PATIENT HAS DYSPNEA ON EXERTION, ACCESSORY MUSCLE USE, GRUNTING, LABORED BREATHING. PATIENT TACHYPNEIC. OCCASIONAL, HACKING COUGH NOTED. PATIENT IN ST WITH PACS, HR 130S TO 140S. SBP IN THE 190S. PATIENT VERY STIFF. 2+ EDEMA TO BILAT FEET AND ANKLES. ABDOMEN MODERATELY DISTENDED, FIRM, WITH HYPOACTIVE BS NOTED. BM NOTED UPON ARRIVAL. APPEARS WNL AT THIS TIME. BRUISE NOTED TO R FA. PATIENT HAS POOR HYGIENE. PRECEDEX INFUSING AT 0.4 MCG/ KG/ HOUR, NS TKO. PRN 1 MG IV ATIVAN GIVEN. BED LOW, CALL LIGHT IN REACH. WILL CONTINUE TO MONITOR PATIENT FREQUENTLY THROUGHOUT SHIFT.
[2021-05-13 15:02] LABS: Source, Urine Catheter
--- NOTE | 2021-05-13 16:00 | NUR ---
PATIENT AFEBRILE. NO SIGNS OF PAIN. PATIENT ANXIOUS AT TIMES BUT COOPERATIVE. PATIENT ABLE TO FOLLOW SIMPLE COMMANDS. BREATHING LESS LABORED. WORK OF BREATHING MUCH EASIER WITH PRECEDEX AND DECREASED SEDATION. HR 80S TO 120S. SBP LOW 100S TO 140S. NO OTHER ACUTE CHANGES TO NOTE ON AT THIS TIME. WILL CONTINUE TO MONITOR.
[2021-05-13 16:22] LABS: Appearance, Urine Clear (Clear); Bilirubin, Urine Neg (Neg); Blood, Urine 1+ (Neg); Color, Urine Yellow (P-Yellow); Glucose Qualitative, Urine Neg (Neg); Ketones, Urine Neg (Neg); Leukocyte Esterase, Urine 3+ (Neg); Nitrite, Urine Neg (Neg); Protein, Urine 2+ (Neg); Urobilinogen, Urine NORM (Normal)
[2021-05-13 16:35] LABS: Bacteria Mod /hpf; Squamous Epithelial Cells Rare /hpf (Few); White Blood Cells, Urine 50-100 /hpf (0-5)
[2021-05-13 16:36] LABS: Hyaline Casts 0-2 /lpf (0-2)
--- NOTE | 2021-05-13 19:31 | NUR ---
SHIFT SUMMARY PATIENT ARRIVED VERY ANXIOUS, TRIPODING FROM PCU AROUND 1230. PATIENT GIVEN PRN ATIVAN AND PLACED ON PRECEDEX DRIP. PATIENT MUCH MORE RELAXED AND WORK OF BREATHING MUCH IMPROVED. PATIENT DOES WAKE WITH OCCASIONAL ANXIETY STILL BUT IS ABLE TO BE COMFORTED BY TALKING WITH STAFF. PATIENT HAS REMAINED AFEBRILE. LUNGS WHEEZY AND VERY TIGHT. PATIENT HAS REMAINED ON BIPAP 14/ 10, RATE 14, AND 40% FIO2. PATIENT HAS BEEN SR TO WITH PACS, HR 80S TO 140S, SNP 90S TO LOW 200S. PATIENT TACHYCARDIC AND HYPERTENSIVE WITH ANXIETY. PATIENT HAS REMAINED WITH PITTING EDEMA. PATIENT HAD 2 PASTY, BROWN BMS SINCE ARRIVAL. PATIENT HAS REMAINED NPO. RUIZ HAS DRAINED 700 MLS OF VERO COLORED URINE. PATIENT HAS BEEN REPOSITIONED Q2H; NO CHANGE NOTED TO SKIN. PRECEDEX AT 0.7 MCG/ KG/ HOUR AND NS TKO. PATIENT APPEARS COMFORTABLE AT THIS TIME. BED LOW, CALL LIGHT IN REACH, BED ALARM ON. REPORT HAS BEEN GIVEN TO ASSUMING GROUNDS FOREMAN NURSE.
--- NOTE | 2021-05-13 19:46 | NUR ---
ASSUMED CARE FROM MARIAH AGUIRRE. PT SITTING UP IN BED, LEANING HEAVILY TO THE LEFT, PROPPED ON PILLOWS, ATTEMPT TO GET HIM TO OPEN HIS EYES, HE IS UNABLE TO DO SO. NON VERBAL, ON BIPAP 14/10 RATE 14, O2 aT 40%. HAIR MATTED AND IN THE WAY, LUNGS SEVERELY DIMINISHED, ABDOMEN LARGE, FIRM, HYPOACTIVE BOWEL SOUNDS, RUIZ TO GRAVITY DRAINAGE, SMALL AMOUNT YELLOW RETURN. BLE EDEMATOUS R>L, PULSES PALPABLE, TOES NAILS LONG AND CURVED. PT WITH LABORED BREATHING, TACHYPNEA, DYSPNEA WITH MOVEMENT. PRECEDEX @ 0.7MCG/KG/HR TO RW, NS @ TKO,LW ATTEMPT TO REPOSITION, HE RETURNS TO THE LEANING LEFT, WANTING TO SIT FORWARD MORE, MOANS A BIT, R/T TURNS BIPAP DOWN TO 35%.
--- NOTE | 2021-05-13 21:00 | NUR ---
PT AWAKENED FOR 2100 MEDS, MASK REMOVED, ORAL CARE DONE, SIPS OF WATER AND PILLS TAKEN, PT TOLERATED WELL. HE HAS AUDIBLE COARSE BREATH SOUNDS, INCREASED WORK OF BREATHING AND EVIDENCED SHORTNESS OF BREATH DURING MASK REMOVAL. PT PLEASANT AND FOLLOWING DIRECTIONS. MASK REPLACED, POSITION CHECKED WITH PATIENT FOR COMFORT.
--- NOTE | 2021-05-14 02:35 | NUR ---
PT CONTINUES WITH ACCESSORY MUSCLE USE FOR WORK OF BREATHING, CHEST AND ABDOMEN WORKING FOR EACH BREATH. SATS REMAIN >95% ON 35%, CALL TO , DISCUSSION ABOUT SUCH, ORDERS RECEIVED TO CONTINUE WITH LORAZEPAM AND TO INCREASE THE PRECEDEX IF NECESSARY PAST THE 0.7MCG/KG/HR TO HELP DECREASE HIS RESPIRATORY EFFORT. HEART RATE REMAINS STABLE, BLOOD PRESSURE STILL SLIGHTLY ELEVATED.
[2021-05-14 03:42] LABS: BASOPHILS ABSOLUTE AUTO 0.01 K/mm3 (0.00-0.23); BASOPHILS PERCENT AUTO 0 % (0-2); EOSINOPHILS PERCENT AUTO 0 % (0-6); Hematocrit 41.1 % (37.0-53.0); Hemoglobin 12.8 g/dL (13.5-17.5); IMMATURE GRAN PERCENT AUTO 1 % (0-1); LYMPHOCYTES ABSOLUTE AUTO 0.44 K/mm3 (0.84-5.20); LYMPHOCYTES PERCENT AUTO 3 % (21-46); MONOCYTES ABSOLUTE AUTO 0.65 K/mm3 (0.16-1.47); MONOCYTES PERCENT AUTO 5 % (4-13); Mean Corpuscular HGB Conc 31.1 g/dL (31.5-36.5); Mean Corpuscular Volume 96 fL (80-100); Mean Platelet Volume 9.3 fL (9.1-12.4); NEUTROPHILS ABSOLUTE AUTO 13.13 K/mm3 (1.96-9.15); NEUTROPHILS PERCENT AUTO 92 % (41-73); Platelet Count 258 K/mm3 (150-400); RDW Coefficient Variation 14.7 % (11.7-14.2); RDW Standard Deviation 53.3 fL (35.1-46.3); Red Blood Cell Count 4.27 M/mm3 (4.30-5.90); White Blood Cell Count 14.33 K/mm3 (4.00-11.30)
[2021-05-14 04:01] LABS: Anion Gap 3 mmol/L (6-16); Blood Urea Nitrogen 26 mg/dL (8-24); Bun/Creatinine Ratio 26.1 (12.0-20.0); CO2, Blood 28 mmol/L (21-32); Calcium, Blood 8.1 mg/dL (8.5-10.1); Chloride, Blood 109 mmol/L (98-108); Glomerular Filtration Rate >60 (60-); Glucose, Blood 140 mg/dL (70-99); Potassium, Blood 5.3 mmol/L (3.5-5.5); Sodium, Blood 140 mmol/L (136-145)
--- NOTE | 2021-05-14 05:27 | NUR ---
HELDER LOOKS TO BE BETTER ON HIS WORK OF BREATHING, HIS PRECEDEX @ 0.7MCG/KG/HR AND NS @ TKO, ATIVAN BEING GIVEN T/O NOC TO HELP EASE WORK OF BREATHING. BLOOD PRESSURE REMAINS ELEVATED 160'S/100'S. MADE AWARE, ORDERS RECEIVED.
--- NOTE | 2021-05-14 07:47 | NUR ---
ASSUMED CARE OF PT, REPORT RCV'D FROM MARIAH WAGNER. PT ALERT TO VERBAL STIMULI, ABLE TO ANSWER QUESTIONS APPROPRIATELY WITH 1-WORD ANSWERS D/T DYSPNEA. PT SITTING AT 45 DEGREES IN BED, UNABLE TO TOLERATE BEING LAID BACK. PT ON BIPAP 02/09, 35% WITH SAT>90%. PT HAS SHALLOW, TACHYPNEIC BREATHS WITH RR INCREASING TO THE 30-40'S WITH BLOOD PRESSURE INCREASES WHEN NOT SEDATED WITH PRECEDEX (GTT @ 0.7 MCG/KG/HR) AND PRN 2 MG ATIVAN. PT HAS TIGHT BREATH SOUNDS WITH EXPIRATORY WHEEZES, LEFT MORE THAN RIGHT. RUIZ PATENT AND DRAINING VERO COLORED URINE. WILL HOLD ALL PO MEDS UNTIL PT ABLE TO SAFELY AND COMFORTABLY TAKE MASK OFF AND SWALLOW PILLS. SEE FULL SHIFT ASSESSMENT.
--- NOTE | 2021-05-14 17:54 | NUR ---
SHIFT SUMMARY NO ACUTE CHANGES T/O SHIFT. PT REMAINS DIM WITH WHEEZES BILATERAL UPPER LOBES L>R. WHEEZES IMPROVED FOLLOWING LASIX ADMINISTRATION. 2900 ML URINARY OUTPUT THIS SHIFT. PT REMAINS ON BIPAP 14/, 25% WITH SATS MID 90'S. RR 16-20. VSS T/O SHIFT. PT TOLERATED TAKING BIPAP OFF FOR SHORT PERIOD TO PERFORM ORAL CARE BUT QUICKLY BECAME ANXIOUS REQUIRING BIPAP TO BE REPLACED. PT REMAINS ON PRECEDEX 0.7 MCG/KG/HR WITH 2MG ATIVAN PRN. PT'S FRIEND/CAREGIVER UPDATED WITH PT'S STATUS AND PLAN OF CARE. WILL REPORT TO ONCOMING NURSE.
--- NOTE | 2021-05-14 20:58 | NUR ---
ASSUMED CARE AT 1900 PT HAD EPISODE OF ANXIETY DURING SHIFT CHANGE RELATED TO DYSPNEA. PT SITTING UP IN BED, RR 30, SPO2 DECREASED TO 88%, HR 130, HTN NOTED, BIPAP SETTINGS 14/10, FIO2 INCREASED TO 35%. PRN ATIVAN GIVEN AND GRADUALLY HELPFUL BRINGING RR DOWN TO LOW 20'S, SPO2 95%, HR 70-80'S, SBP 120. TIGHT EXPIRATORY WHEEZE NOTED IN UPPER LOBES; RT PROVIDED BREATHING TREATMENTS WELL, BREATHING TREATMENTS HELPFUL, MORE AIR MOVING. 0RAL CARE PROVIDED, PT ONLY TOLERATING A FEW SECONDS OFF OF BIPAP MASK. PT REACTIVE TO VERBAL STIMULI BUT [place] AND SLOW TO RESPOND; PT ANSWERS WITH ONE WORD RESPONSES RELATED TO DYSPNEA WITH EXERTION, PRECEDEX INFUSING AT 0.7MCG/KG/HR. AFEBRILE. RUIZ IN PLACE AND DRAINING TO GRAVITY. SEE SHIFT ASSESSMENT FOR FULL ASSESSMENT.
--- NOTE | 2021-05-15 05:54 | NUR ---
END OF SHIFT SUMMARY NO ACUTE EVENTS OVERNIGHT. PT SOMNULANT BUT REPONSIVE TO VERBAL STIMULI AND SLOW TO RESPOND; PT ABLE TO ANSWER QUESTIONS WITH SHORT ANSWERS DUE TO DYSPNEA WITH EXERTION; PT HAS EPISODES OF INCREASED ANXIOUSNESS THAT IS ALSO REFLECTED IN VITALS, HIS HR INCREASES, RR INCREASES, AND BP RISES; PRN ATIVAN GIVEN X3 AND HELPFUL; PRECEDEX INFUSING AT 0.7MCG/KG/HR. BIPAP REMAINED ON T/O SHIFT AND ONLY TOLERATED SHORT BREAKS FOR ORAL CARE BUT UNSAFE FOR ORAL MEDICATION ADMINISTRATION; BIPAP SETTINGS 14/10, RATE SET TO 14, FIO2 30%; RR WHEN NOT ANXIOUS 18-22, SPO2 >95%. AFEBRILE. HR 70-80'S, NSR WITH PAC'S. SBP 120-130; PRN HYDROLAZINE GIVEN ONCE FOR SBP >160 AND HELPFUL. RUIZ PATENT AND DRAINING TO GRAVITY. WILL REPORT TO AM RN WHEN AVAILABLE.
--- NOTE | 2021-05-15 08:05 | NUR ---
INITIAL ASSESSMENT PATIENT RESPONDING TO VERBAL STIMULI. PATIENT ON PRECEDEX AT 0.7 MCG/ KG/ HOUR TO HELP WITH ANXIETY. PATIENT RECIEVED PRN IV ATIVAN NOT TOO LONG BEFORE THIS SHIFT STARTED. PATIENT SLOW TO RESPOND. PATIENT ORIENTED TO SELF, TOWN, AND FOLLOWING COMMANDS. PATIENT GIVING ONE WORD ANSWERS. PATIENT AFEBRILE. PATIENT DOES NOT SHOW ANY SIGNS OF PAIN OR DISCOMFORT. PATIENT SATTING 90% AND GREATER ON BIPAP SETTINGS OF 14/10, RATE OF 14 AND 30% FIO2. PATIENT PLACED ON NC FOR BIPAP BREAK AND ORAL CARE. PATIENT IS CURRENTLY SATTING 90% AND GREATER ON 4 L NC. LUNGS TIGHT WITH EXPIRATORY WHEEZE IN UPPER LOBES; DIMINISHED IN LOWER LOBES. PATIENT HAS OCCASIONAL, DRY, WEAK COUGH. PATIENT SOB WITH EXERTION AND ANXIETY. PATIENT IN SR WITH PACS, HR 70S TO 80S. SBP 1-TEENS TO 130S. PITTING EDEMA NOTED TO BILAT FEET AND ANKLES. ABDOMEN MODERATELY DISTENDED, FIRM, WITH HYPOACTIVE BS NOTED. LAST BM DOCUMENTED 05/13. PATIENT GIVEN SIP OF WATER. PATIENT TOOK WATER IN TO MOUTH WITHOUT DIFFICULTY, HOWEVER PATIENT NOT CURRENTLY UNDERSTANDING HOW TO SWALLOW THE WATER. PATIENT HELD WATER IN MOUTH FOR ABOUT A MINUTE AND THEN ENDING UP SPITTING OUT ONTO CHEST. RUIZ DRAINING DARK YELLOW COLORED URINE. SCATTERED BRUISES NOTED THROUGHOUT. PATIENT BEING REPOSITIONED Q2H AND PRN. NS TKO. BED LOW, CALL LIGHT IN REACH, BED ALARM ON. WILL CONTINUE TO MONITOR PATIENT FREQUENTLY THROUGHOUT SHIFT.
--- NOTE | 2021-05-15 10:06 | NUR ---
DOBHOFF INSERTED. CHEST XRAY COMPLETE. DR. FITCH CONFIRMED PLACEMENT AND TO START TUBE FEEDS.
--- NOTE | 2021-05-15 10:25 | NUR ---
PATIENT DECREASED TO RA; REMAINS SATTING 88% AND GREATER.
--- NOTE | 2021-05-15 11:39 | NUR ---
NURSE CHECKED ON PATIENT AND NOTICED THAT PATIENT PULLED DOBHOFF OUT TO ABOUT 10 CM. NURSE IMMEDIATELY TURNED TF OFF. PATIENT NOT COUGHING OR ACTING LIKE ASPIRATED. DOBHOFF PULLED THE REST OF THE WAY OUT. DR. FITCH INFORMED. NEW DOBHOFF PLACED AND CHEST XR PERFORMED. DR. FITCH READ XR AND CONFIRMED PLACEMENT AND GAVE ORDER TO RESUME TF.
--- NOTE | 2021-05-15 12:00 | NUR ---
PATIENT AFEBRILE. PATIENT HAS NO SIGNS OF PAIN AT THIS TIME. PATIENT HAS PERIODS OF DYSPNEA AND TACHYCARDIA WHEN HE EXPERIENCES ANXIETY. PATIENT REMAINS ON PRECEDEX. BUSPAR STARTED PATIENT NOW HAD DOBHOFF TUBE. PATIENT ALSO STARTING TO RECEIVE ZYPRECA ODT. PATIENT HAS BEEN SATTING 90% AND GREATER ON RA TO 4 L NC. PATIENT CURRENTLY ON 2 L NC. PATIENT CONTINUES TO HAVE EXPIRATORY WHEEZES NOTED IN UPPER LUNG LOBES; LOWER LOBES REMAIN DIMINISHED. PATIENT COUGHING UP THICK, TENACIOUS, PALE YELLOW SPUTUM FOR AN HOUR OR TWO AND THEN BEGAN TO COUGH UP THICK, BLOODY SPUTUM. COUGH STRONGER THAN THIS AM. HR 80S TO 100. SBP IN THE 130S. EDEMA IN LOWER EXTREMITIES SEEMS IMPROVED. PIVOT 1.5 INFUSING AT 10 MLS/ HOUR WITH 30 ML WATER FLUSH Q4H. SKIN TEAR NOTED TO BRIDGE OF NOSE WHERE BIPAP MASK WAS SITTING THIS AM. NO OTHER ACUTE CHANGES TO NOTE ON AT THIS TIME. WILL CONTINUE TO MONITOR.
--- NOTE | 2021-05-15 16:00 | NUR ---
PATIENT AFEBRILE. NO COMPLAINTS OF PAIN. PRECEDEX AT 0.5 MCG/ KG/ HOUR. PATIENT SLIGHTLY MORE AWAKE AND ALERT. PATIENT MUCH LESS ANXIOUS THAN THIS AM AND SEEMS TO BE BREATHING MUCH EASIER WELL. LUNGS REMAIN WHEEZY AND TIGHT. PATIENT REMAINS SATTING 90% AND GREATER ON 2 L NC. HR 70S TO 80S. SBP 1-TEENS TO 140S. NO OTHER ACUTE CHANGES TO NOTE ON AT THIS TIME. BED LOW, CALL LIGHT IN REACH, BED ALARM ON. WILL CONTINUE TO MONITOR.
--- NOTE | 2021-05-15 18:24 | NUR ---
SHIFT SUMMARY PATIENT FAIRLY SEDATED THIS AM ON PRECEDEX DRIP AND PRN ATIVAN BECAUSE OF HIS ANXIETY AND IT LEADING TO O2 DESATURATION. DOBHOFF PLACED THIS SHIFT, PATIENT HAVING DIFFICULTY UNDERSTANDING INSTRUCTIONS TO SWALLOW WATER, SO PATIENT COULD BE STARTED ON HOME BUSPAR. PATIENT ALSO STARTED ON SCHEDULED ZYPREXA. PATIENT SEEMS TO SATURATE WELL UNTIL HIS ANXIETY SETS IN. PRECEDEX ABLE TO BE TITRATED DOWN SLIGHTLY THIS SHIFT AFTER ADDITION OF BUSPAR AND ZYPREXA. PATIENT MORE AWAKE, ALERT AND INTERACTIVE WITH STAFF. PATIENT'S ANXIETY HAS BEEN MUCH LESS THIS AFTERNOON THAN IN THE MORNING. PATIENT HAS REMAINED AFEBRILE. NO COMPLAINTS OR SIGNS OF PAIN NOTED. LUNGS HAVE REMAINED TIGHT, WITH EXPIRATORY WHEEZES IN UPPER LOBES; LOWER LOBES DIMINISHED. PATIENT STARTED SHIFT ON BIPAP AT 14/10, RATE OF 14, AND 30% FIO2. PATIENT HAS SINCE BEEN DECREASED ALL THE WAY TO RA. PATIENT HAS MOSTLY BEEN ON 2 L NC AND SATTING 90% AND GREATER. PATIENT HAD DRY COUGH THIS AM, WHICH TURNED INTO PRODUCING THICK, TENACIOUS PALE YELLOW SPUTUM, AND THEN FINALLY CHANGED TO THICK, BLOODY SPUTUM. DR. FITCH INFORMED. PATIENT REMAINED SR TO ST WITH PACS. HR RANGED FROM 70S TO 100. SBP 1-TEENS TO 160S. PITTING EDEMA IN BLES APPEARS TO BE IMPROVED SINCE MORNING. PATIENT STARTED ON PIVOT 1.5 AT 10 MLS PER HOUR WITH 30 ML WATER FLUSH Q4H. CLIENT CARE MANAGER CONSULTED AND WILL ADJUST NEEDED WHEN BACK ON MONDAY. PATIENT HAD ONE SMALL, BROWN, PASTY STOOL THIS SHIFT. RUIZ DRAINED 675 MLS OF DARK YELLOW COLORED URINE. SKIN TEAR TO BRIDGE OF NOSE NOTED AFTER BIPAP MASK REMOVED THIS AM. ANTIBACTERIAL OINTMENT HAS BEEN APPLIED TO TEAR T/O DAY. PRECEDEX CURRENTLY AT 0.5 MCG/ KG/ HOUR AND NS TKO. PATIENT RECEIVED ROCEPHIN THIS SHIFT. PATIENT RECEIVED COMPLETE BED BATH THIS SHIFT. PATIENT APPEARS COMFORTABLE AT THIS TIME. BED LOW, CALL LIGHT IN REACH, BED ALARM ON. REPORT WILL BE GIVEN TO ASSUMING CONCRETE LAYER NURSE SHORTLY.
--- NOTE | 2021-05-15 21:19 | NUR ---
ASSUMED CARE AT 1900 PT LAYING IN BED SOMNULANT BUT WAKES WITH VERBAL STIMULI. PT IS ALERT/ORIENTED TO SELF BUT NOT PLACE, LOCATION, OR TIME; ALSO COOPERATIVE AND PLEASENT; PRECEDEX INFUSING AT 0.5MCG/KG/HR; PLAN TO TITRATE PRECEDEX OFF TONIGHT IF TOLERATED. AFEBRILE. SPO2 >95% ON 2L NC; AUDIBLE EXPIRATORY WHEEZES NOTED AFTER BREATHING TREATMENT. HR 70-80'S. SBP 130-150. PIVOT INFUSING VIA AT 10ML/HR (GOAL) WITH 30ML WATER FLUSHES Q4HR. RUIZ PATENT AND DRAINING TO GRAVITY. SEE SHIFT ASSESSMENT FOR FULL ASSESSMENT.
--- NOTE | 2021-05-16 03:45 | NUR ---
DOBHOFF PULLED PT PULL OUT DOBHOFF. NEW DOBHOFF PLACED AT 60CM; FOLLOW UP CHEST XRAY COMOPLETED AND CONFIRMED PLACEMENT BY DR LEDBETTER. PIVOT RESTARTED AT 10ML/HR WTIH 30ML WATER FLUSHES Q4HR.
[2021-05-16 03:47] LABS: BASOPHILS PERCENT AUTO 0 % (0-2); EOSINOPHILS PERCENT AUTO 0 % (0-6); Hematocrit 43.7 % (37.0-53.0); Hemoglobin 13.9 g/dL (13.5-17.5); IMMATURE GRAN ABSOLUTE AUTO 0.08 K/mm3 (0.00-0.10); IMMATURE GRAN PERCENT AUTO 1 % (0-1); LYMPHOCYTES ABSOLUTE AUTO 0.37 K/mm3 (0.84-5.20); LYMPHOCYTES PERCENT AUTO 5 % (21-46); MONOCYTES ABSOLUTE AUTO 0.29 K/mm3 (0.16-1.47); MONOCYTES PERCENT AUTO 4 % (4-13); Mean Corpuscular HGB 30.2 pg (26.0-34.0); Mean Corpuscular HGB Conc 31.8 g/dL (31.5-36.5); Mean Corpuscular Volume 95 fL (80-100); Mean Platelet Volume 9.6 fL (9.1-12.4); NEUTROPHILS ABSOLUTE AUTO 6.82 K/mm3 (1.96-9.15); NEUTROPHILS PERCENT AUTO 90 % (41-73); Platelet Count 253 K/mm3 (150-400); RDW Coefficient Variation 14.4 % (11.7-14.2); RDW Standard Deviation 50.5 fL (35.1-46.3); White Blood Cell Count 7.56 K/mm3 (4.00-11.30)
[2021-05-16 04:08] LABS: Albumin, Blood 2.7 g/dL (3.4-5.0); Anion Gap 3 mmol/L (6-16); Blood Urea Nitrogen 44 mg/dL (8-24); Bun/Creatinine Ratio 50.5 (12.0-20.0); CO2, Blood 30 mmol/L (21-32); Chloride, Blood 110 mmol/L (98-108); Creatinine, Blood 0.87 mg/dL (0.60-1.20); Glomerular Filtration Rate >60 (60-); Glucose, Blood 158 mg/dL (70-99); Phosphorus, Blood 3.1 mg/dL (2.5-4.9); Potassium, Blood 3.6 mmol/L (3.5-5.5); Sodium, Blood 143 mmol/L (136-145)
--- NOTE | 2021-05-16 06:39 | NUR ---
END OF SHIFT SUMMARY PT SLEPT UNTIL 4AM. PT BECOMEING MORE ALERT AND ORIENTED T/O SHIFT, PT ALERT/ORIENTED TO SELF, LOCATION, PLACE, AND TIME, BUT NOT SITATION OR LIMITATION; REPETATIVE QUESTIONS ASKED; PRECEDEX ON SB SINCE 399; PRN ATIVAN 1MG GIVEN X3 FOR INCREASED ANXIETY ABOUT DRINKING COFFEE, PRN HELPFUL. SPO2 >95% ON 2L NC, TRIALLED TO RA, SPO2 >90% ON RA. MODERATE AMOUNT OF THICK GRIJALVA SECREATIONS NOTED. HR 70-80'S. SBP 140-150. PIVOT INFUSING VIA DOBHOFF AT 10ML/HR WITH 30ML WATER FLUSHES Q4HR; SEE PREVIOUS NOTE ABOUT PULLED DOBHOFF. RUIZ PATENT AND DRAINING TO GRAVITY. WILL REPORT TO AM RN WHEN AVAILABLE.
--- NOTE | 2021-05-16 10:09 | NUR ---
AM NOTE... ASSUMED CARE OF PT AT 0700. PT IS A&Ox4 KNOWING HIS FULL NAME AND , WHERE HE IS AT, THE MONTH AND THE YEAR. PT IS VERY AGITATED AND ANXIOUS ASKING ABOUT WATER AND COFFEE. PT IS IN SOFT WRIST RESTRAINTS D/T PULLING OUT THE DOBHOFF NG TUBE. PT WAS GIVEN 5MG IV HALDOL AND 2 MG IV ATIVAN AND WAS STILL VERY AGITATED. AT THE START OF THIS SHIFT PT WAS IN NSR IN THE 70'S-80'S AND HYPERTENSIVE WITH SBPs IN THE 160'S-190'S. AT APROX 0840 THE PT'S HR INCREASED TO THE 140'S-160'S PT BECAME MORE SOB AND MORE ANXIOUS, HIS WORK OF BREATHING INCREASED, PT STARTED TO GRUNT AND USE ACCESSORY MUSCLES. PRECEDEX WAS RESTARTED AT 0.4MCG. PT'S O2 SATS WERE 92-93%, O2 AT 4L NC WAS PLACED ON THE PT FOR COMFORT AND TO HELP REDUCE HIS ANXIETY. PT'S RR WAS IN THE 40'S DURING THIS TIME. AN EKG WAS OBTAINED DURING THIS TIME WELL. DR. FITCH WAS NOTIFIED. NEW ORDERS FOR CARDIZEM 30MG PT Q6HRS WERE OBTAINED. PT'S DOBHOFF IS IN PLACE WITH THE MARKING AT 60. TUBE FEED RUNNING AT 10MLS/HR AND 30MLS H2O FLUSHES Q4. PT'S RUIZ IS PATENT AND DRAINING TO GRAVITY. PT'S RESTRAINTS WERE TAKEN OFF [place] 0800, PT AGREED TO NOT PULL ON ANY TUBES/CORDS, PT VERBALIZED HIS UNDERSTANDING THAT RESTRAINTS WOULD BE PUT BACK ON IF HE STARTED TO PULL ON ANY TUBES/CORDS. PT'S L/S VERY TIGHT, EXP WHEEZES AND DIM T/O. RR LABORED WITH GRUNTING AND ACCESSORY MUSCLE USE WITH RR IN THE 20'S-30'S. BT PRESENT AND HYPOACTIVE, ABD HAS MODERATE DISTENTION AND IS FIRM TO PALP. PT HAS 2+ EDEMA TO HIS BLE AND DEPENDENT EDEMA TO HIS HANDS. CALL LIGHT IN REACH BED ALARM IS ON WILL CONTINUE TO MONITOR.
--- NOTE | 2021-05-16 14:41 | NUR ---
PT UPDATE... NO ACUTE NEGATIVE CHANGES SINCE PREVIOUS NOTES, PT IS SLEEPING AT THIS TIME ON 0.5MG OF PRECEDEX AND 2L NC WITH O2 SATS >95%. IF PT WAKES UP HE BECOMES VERY ANXIOUS AND STARTS YELLING OUT "HELP ME HELP ME!" PT'S WORDS HAVE BECOME GARBBLED AND HARD TO UNDERSTAND SINCE THIS AM'S ASSESSMENT. WILL CONTINUE TO MONITOR.
--- NOTE | 2021-05-16 16:33 | NUR ---
REPORT GIVEN TO MARY LOU LEMUS. REPORT GIVEN TO ROX LEMUS. PT'S VS STABLE AT THIS TIME, NO CHANGES SINCE PREVIOUSE NOTE. PT IS ON 0.3MG OF PRECEDEX GTT RUNNING PER ORDERS. PT IS ON 2L NC WITH O2 SATS >95%. L/S TIGHT, DIM WITH EXP WHEEZES, UNCHANGED FROM THIS AM's ASSESSMENT.
--- NOTE | 2021-05-16 18:16 | NUR ---
SHIFT SUMMARY: VS CONTINUE STABLE, PT MAINTAINING O2 SATS >92% ON ROOM AIR AT THIS TIME, EXP WHEEZING CONTINUES T/OUT. PT HAS BEEN CALM AND COOPERATIVE, NO NEED FOR REAPPLICATION OF SOFT WRIST RESTRAINTS, DOBHOFF CONTINUES WITH LOW CONTINUOUS INFUSION, ORAL CARE PERFORMED NEEDED. PRECEDEX GTT CONTINUES AT 0.3 MCG/KG/HR. INDWELLING RUIZ PATENT AND DRAINING TO GRAVITY. WILL CONTINUE TO MONITOR AND TREAT ACCORDINGLY UNTIL CHANGE OF SHIFT.
[2021-05-17 04:07] LABS: Albumin, Blood 2.5 g/dL (3.4-5.0); Anion Gap 3 mmol/L (6-16); Blood Urea Nitrogen 41 mg/dL (8-24); Bun/Creatinine Ratio 47.8 (12.0-20.0); CO2, Blood 30 mmol/L (21-32); Chloride, Blood 110 mmol/L (98-108); Creatinine, Blood 0.86 mg/dL (0.60-1.20); Glomerular Filtration Rate >60 (60-); Glucose, Blood 136 mg/dL (70-99); Phosphorus, Blood 3.7 mg/dL (2.5-4.9); Potassium, Blood 3.9 mmol/L (3.5-5.5); Sodium, Blood 143 mmol/L (136-145)
--- NOTE | 2021-05-17 06:14 | NUR ---
END OF SHIFT SUMMARY NO ACUTE EVENTS OVERNIGHT AND PT SLEPT ON AND OFF. PT IS ALERT/ORIENTED X3, DOES NOT USE THE CALL LIGHT, AND CAN BECOME VERY ANXIOUS; PRN ATIVAN GIVEN X3 T/O SHIFT AND HELPFUL; PRECEDEX INFUSING AT 0.3MCG/KG/HR. DURING ANXIOUS EPISODES O2 INCREASED TO 5L NC BUT WHILE SLEEPING ABLE TO TITRATE DOWN TO 3L NC WITH SPO2 >90%. ALSO DURING ANXIOUS EPISODES PT SITTING ALL THE WAY UP IN BED PULLING AT THE SIDE RAILS, HR INCREASES TO 130'S, SBP >160, AND RR IN 30'S. AFTER PRN ATIVAN GIVEN HR 70-80'S, SBP 110-130, AND RR 18-25. PIVOT INFUSING VIA DOBHOFF AT 10ML/HR WITH 30ML WATER FLUSHES Q4HR. PT NOT TOLERATING MOUTH SWABS WITH WATER AND WILL BEGIN TO COUGH MORE AFTERWARDS WHEN GIVEN THEM. RUIZ PATIENT AND DRAINING TO GRAVITY. WILL REPORT TO AM RN WHEN AVAILABLE.
--- NOTE | 2021-05-17 10:23 | NUR ---
Care Assumed 0700 Pt A/O to being in [place], unable to state exact location or event. Able to follow commands. States being anxious and short of breath. Pt with increased SOB, HR 110's, and tachypnea when being pulled up in bed and turned for speech elevation. Pt did not tolerate this well. NC increased to 6 L at this time, decreased to 3 L after. Lung are tight and pt does not appear to be moving air. RT and Dr. Venegas aware, new orders for RT by Dr. Venegas. Dobhoff in place, Pivot increased to 20 ml/hr with goal of 45 ml/hr. Will increase per order. Angelo in place with clear alex urine.
--- NOTE | 2021-05-17 13:18 | NUR ---
PT MEDICATED WITH ATIVAN FOR ANXIETY, LABORED BREATHING, AND AUDIBLE WHEEZING NOT RESPONSIVE TO RT NEB.
--- NOTE | 2021-05-17 13:50 | NUR ---
Update- Bipap Pt continues to have labored breathing after bedbath. Per Dr. Venegas pt to be restarted on Bipap. Bipap /, FIO2 30%. Pt tolerating well. Precedex 0.7 mcg/kg/hr.
--- NOTE | 2021-05-17 15:07 | NUR ---
Bipap settings Bipap 8/5, FIO2 30%. Pt continues to have elevated RR (20's). Continues to feel SOB and asking for a beer. Pt updated on being NPO and recieving tube feed currently.
--- NOTE | 2021-05-17 17:55 | NUR ---
Shift Summary Pt remains on Bipap /, FIO2 30% or NC 3 L, to keep SPO2 > 90%. Pt continues to have labored breathing and using accessory muscles, worsened with excretion. To be placed back on Bipap if patient with increased excretion. Remains on Precedex 0.7 mcg/kg/hr. Tube feed at 40 ml/hr, will increase to goal. Follows directions occasionally and asking for drink/beer frequently. Oral care provided frequently. Attempting to situp in bed and states, "I want to go home." Pt on camera monitor for fall risk. Angelo in place. VSS. Call light within reach.
--- NOTE | 2021-05-17 22:39 | NUR ---
AT 1930 PATIENT SLEEPING AND DIFFICULT TO AWAKEN, WITH ATTEMPT TO PLACE BIPAP PATIENT AWAKENS AND BECOMING ANGRY BECAUSE HE CAN NOT HAVE ANYTHING TO DRINK DESPITE FREQUENT EXPLANATION OF RISK FOR ASPIRATION. PATIENT ATTEMPTING TO GET UP ABOUT OF BED AND PULLING AT OXYGEN, DOBBHOFF AND IV, PUSHING STAFFS HANDS OUT OF THE WAY WHEN ATTEMPTING TO MOISTEN PATIENTS MOUTH WITH TOOTHETTE OR SUCTION TOOTH BRUSH. PRECEDEX CONTINUES 0.7 MCG AND HALDOL IV GIVEN. PATIENT CONTINUED TO PULL AT LINES AND CORDS AND ATTEMPT TO GET OUT OF BED WITHOUT ASSISTANCE TO GET SODA TO DRINK, BILAT WRIST RESTRAINTS PLACED. PATIENT NOW RELAXED, AWAKENS TO VERBAL STIMULI FOLLOWING SIMPLE DIRECTIONS. BILAT WRIST RESTRAINTS CONTINUE. TUBE FEEDING INCREASED TO GOAL RATE OF 45 CC/HR PER DOBBHOFF.
--- NOTE | 2021-05-18 00:15 | NUR ---
PATIENT RESTLESS YELLING OUT " I CAN'T BREATH" BIPAP PLACED 06/24 30% BIOX NEVER DROPPING LOWER THAN 98%. WRIST RESTRAINTS OFF WHILE STAFF IN ROOM
[2021-05-18 03:56] LABS: Albumin, Blood 2.4 g/dL (3.4-5.0); Anion Gap 1 mmol/L (6-16); Blood Urea Nitrogen 38 mg/dL (8-24); Bun/Creatinine Ratio 50.5 (12.0-20.0); CO2, Blood 28 mmol/L (21-32); Calcium, Blood 7.5 mg/dL (8.5-10.1); Chloride, Blood 113 mmol/L (98-108); Creatinine, Blood 0.75 mg/dL (0.60-1.20); Glomerular Filtration Rate >60 (60-); Glucose, Blood 183 mg/dL (70-99); Magnesium, Blood 3.2 mg/dL (1.6-2.4); Phosphorus, Blood 3.3 mg/dL (2.5-4.9); Sodium, Blood 142 mmol/L (136-145)
--- NOTE | 2021-05-18 06:47 | NUR ---
SUMMARY PATIENT SLEEPING OFF AND ON T/O NIGHT. WHEN AWAKE VERY ANXIOUS, WANTING TO GET UP AND FREQUENTLY ASKING FOR SOMETHING TO DRINK. PATIENT VERY SOB WITH AUDIBLE WHEEZES WHEN AWAKE AND UPSET. PRECEDEX 0.7 AND ATIVAN GIVEN TO HELP PATIENT [place] BIPAP. SLEEPING WITH BIPAP IN PLACE MOST OF THE NIGHT. BILAT WRIST RESTRAINTS STARTED LAST NIGHT PATIENT REMOVING OXYGEN AND PULLING AT LINES AND TUBES, AND ATTEMPTING TO GET OUT OF BED WITHOUT ASSISTANCE. REMOTE MONITORING ASSISTING WITH KEEPING AN EYE ON PATIENT. DOBBHOFF REMAINS IN PLACE WITH PIVIT 1.5 AT GOAL RATE OF 45 CC/HR.
--- NOTE | 2021-05-18 09:12 | NUR ---
PT RESTING IN BIPAP. PRECEDEX GTT ON TO HELP PT TOLERATE BIPAP. VERY LITTLE AIR MOVEMENT IN LUNGS, BUT SPO2 IN THE 90'S ON BIPAP. DOBHOFF IN PLACE. PT IS IN RESTRAINTS WELL SINCE HE HAS PULLED MULTIPLE DOBHOFFS. PT IS UNABLE TO PARTICIPATE IN SPEECH EVAL YET AND RESP RATE CONTRAINDICATES ANYTHING BY MOUTH.
--- NOTE | 2021-05-18 14:29 | NUR ---
Met pt. lying bin bed resting no family member in the room, prayed for the pt.
--- NOTE | 2021-05-18 18:41 | NUR ---
SUMMARY PT SEDATED WITH PRECEDEX. WHEN PRECEDEX TURNED DOWN PT WILL YELL OUT DESPITE BEING SOB. JUST BEFORE 1600 TODAY PT WENT IN TO AFIB RVR. DR. HAMILTON RE-ORDERED CARDIZEM AND AN IV DOSE. LUNGS SOUNDS VERY DIM T/O. WHEN OFF BIPAP HE HAS AUDIBLE WHEEZING. DR. HAMILTON TRIED A DOSE OF RACEMIC EPI WITHOUT ANY IMPROVEMENT OF WHEEZING. CXR DONE AND NOTHING SIGNIFICANTLY CHANGED. WENT UP ON PRECEDEX PER DR. HAMILTON WHICH DID BRING HR DOWN FOR THE MOMENT. WILL REPORT TO ONCOMING RN.
--- NOTE | 2021-05-18 20:55 | NUR ---
PATIENT RESTING QUIETLY WITH BIPAP IN PLACE 10/8 FIO2 30% LUNG SOUNDS DECREASED T/O. SPEECH ASSISTANT SHOWING AFIB WITH RATE 110'S-130'S. PATIENT AWAKENS TO VERBAL STIMULI, ASSISTING SLIGHTLY WITH REPOSITIONING. SPEAKING IN A WHISPER. PRECEDEX 1.[address] WITH TUBE FEEDING OF PIVIT 1.5 AT GOAL RATE OF 45/HR. BILAT WRIST RESTRAINTS REMAIN IN PLACE DUE TO UNPREDICTABLE BEHAVIOR, AND TO PROTECT CRITICAL LINES.
--- NOTE | 2021-05-19 00:09 | NUR ---
PATIENT WAS SLEEPING WITH 2L/NC IN PLACE. WHEN UDN TX MASK PLACED OVER PATIENTS FACE HE BEGAN YELLING GET IT OFF, AND BECAME EXTREMLY AGITATED. DESPITE SEVERAL ATTEMPTS TO EXPLAIN NEED FOR UDN TX FOR WHEEZING PATIENT CONTINUED TO YELL AND THRASH IN BED. HEART RATE UP TO 160'S WITH AFIB WITH RVR. PRECEDEX INCREASED TO 1.4 MCG AND ATIVAN GIVEN. BIPAP REPLACED WHEN PATIENT MORE RELAXED. PATIENT NOW SLEEPING HEART RATE 130'S
[2021-05-19 03:46] LABS: BASOPHILS ABSOLUTE AUTO 0.01 K/mm3 (0.00-0.23); BASOPHILS PERCENT AUTO 0 % (0-2); EOSINOPHILS PERCENT AUTO 0 % (0-6); Hematocrit 44.7 % (37.0-53.0); IMMATURE GRAN ABSOLUTE AUTO 0.18 K/mm3 (0.00-0.10); IMMATURE GRAN PERCENT AUTO 2 % (0-1); LYMPHOCYTES ABSOLUTE AUTO 0.29 K/mm3 (0.84-5.20); LYMPHOCYTES PERCENT AUTO 3 % (21-46); MONOCYTES ABSOLUTE AUTO 0.36 K/mm3 (0.16-1.47); MONOCYTES PERCENT AUTO 3 % (4-13); Mean Corpuscular HGB 29.9 pg (26.0-34.0); Mean Corpuscular HGB Conc 31.3 g/dL (31.5-36.5); Mean Corpuscular Volume 95 fL (80-100); Mean Platelet Volume 9.9 fL (9.1-12.4); NEUTROPHILS ABSOLUTE AUTO 10.08 K/mm3 (1.96-9.15); NEUTROPHILS PERCENT AUTO 92 % (41-73); Platelet Count 288 K/mm3 (150-400); RDW Coefficient Variation 14.6 % (11.7-14.2); RDW Standard Deviation 51.5 fL (35.1-46.3); Red Blood Cell Count 4.69 M/mm3 (4.30-5.90); White Blood Cell Count 10.92 K/mm3 (4.00-11.30)
[2021-05-19 04:06] LABS: Anion Gap 1 mmol/L (6-16); Blood Urea Nitrogen 39 mg/dL (8-24); Bun/Creatinine Ratio 52.8 (12.0-20.0); CO2, Blood 32 mmol/L (21-32); Calcium, Blood 7.6 mg/dL (8.5-10.1); Chloride, Blood 112 mmol/L (98-108); Creatinine, Blood 0.74 mg/dL (0.60-1.20); Glomerular Filtration Rate >60 (60-); Glucose, Blood 207 mg/dL (70-99); Magnesium, Blood 3.1 mg/dL (1.6-2.4); Phosphorus, Blood 2.9 mg/dL (2.5-4.9); Potassium, Blood 4.9 mmol/L (3.5-5.5); Sodium, Blood 145 mmol/L (136-145)
--- NOTE | 2021-05-19 06:10 | NUR ---
SUMMARY PATIENT REMAINS SEDATED WITH PRECEDEX 1.4 AND ATIVAN PRN. WHEN AWAKE PATIENT BECOMING ANXIOUS AND ATTEMPTING TO GET OUT OF BED, RESP LABORED WITH AUDIBLE WHEEZES. BILAT WRIST RESTRAINTS REMAIN IN PLACE TO KEEP PATIENT FOR REMOVING OXYGEN OR BIPAP AND DUE TO FALL RISK. REMOTE CAMERA ON TO HELP KEEP AN EYE ON PATIENT.
--- NOTE | 2021-05-19 07:31 | NUR ---
ASSUMED CARE: PT RESTING QUIETLY WITH BIPAP ON, SETTINGS 10/8 AND 30% FIO2. PRECEDEX GTT AT 1.4 MCG/KG. BILATERAL WRIST RESTRAINTS AT THIS TIME. NO ACUTE NEEDS OR CONCERNS.
--- NOTE | 2021-05-19 12:19 | NUR ---
DR HAMILTON HAS ROUNDED ON PT THIS AM AND IS AWARE OF HR TRENDING IN 140S-150S. ORDER FOR CARDIZEM GTT TO BE STARTED AT 10MG/HR. RATE INCREASED TO 15 PER INSTRUCTION AFTER HR REMAINING IN 130S. PRECEDEX TITRATED DOWN DUE TO PT NOT ROUSING WITH NOXIOUS STIMULI, INCLUDING ORAL CARE AND BED BATH
--- NOTE | 2021-05-19 18:35 | NUR ---
SHIFT SUMMARY: PT REMAINS ON BIPA WITH SETTINGS 08/27. TOLERATING BREAKS FOR ORAL CARE TODAY. PRECEDEX TITRATED DOWN TO 0.7MCG/KG DUE TO OVERSEDATION THIS AM. ATIVAN PROVIDED PRN. CARDIZEM GTT AT 5MCG/ML AT THIS TIME FOR AFIB IN 120S-140S. DOBHOFF IN PLACE. NO FURTHER NEEDS AT THIS TIME
--- NOTE | 2021-05-19 20:00 | NUR ---
ASSESSMENT/ASSUMED CARE PT RESTING QUIETLY ON BIPAP. BIPAP SETTINGS 10/8 FIO2 30%. PT WITH BILAT SOFT WRIST RESTRAINTS DUE TO PULLING LINES AND CONFUSION. PT SEDATED WITH PRECEDEX AT 0.7 MCQ/KG/HR. HEART RATE IRREGULAR- AFIB, CARDIZEM AT 5 MG/HR. PT WITH TUBE FEED VIA DOBHOFF PIVOT 1.5 AT GOAL RATE 45 ML/HR. ORAL CARE DONE, PT FOLLOWING SOME INSTRUCTIONS. PT REPOSITIONED. RESTING QUIETLY WHEN UNDISTURBED.
--- NOTE | 2021-05-19 21:27 | NUR ---
AGITATION PT YELLING OUT AND PULLING ON RESTRAINTS. REORIENTED TO PLACE AND TIME. MED WITH ATIVAN 2 MG. PRECEDEX AT 0.8 MCQ/KG/HR.
[2021-05-20 04:15] LABS: Anion Gap 2 mmol/L (6-16); Blood Urea Nitrogen 48 mg/dL (8-24); Bun/Creatinine Ratio 49.4 (12.0-20.0); CO2, Blood 33 mmol/L (21-32); Calcium, Blood 7.5 mg/dL (8.5-10.1); Chloride, Blood 112 mmol/L (98-108); Creatinine, Blood 0.97 mg/dL (0.60-1.20); Glomerular Filtration Rate >60 (60-); Glucose, Blood 180 mg/dL (70-99); Phosphorus, Blood 2.5 mg/dL (2.5-4.9); Potassium, Blood 4.8 mmol/L (3.5-5.5); Sodium, Blood 147 mmol/L (136-145)
--- NOTE | 2021-05-20 06:14 | NUR ---
SHIFT SUMMARY PT RESTING QUIETL AT THIS TIME. SEDATED WITH PRECEDEX CURRENTLY AT 1.1 MCQ/KG/HR DUE TO PULLING ON LINES AND RESTRAINTS. TITRATED DOWN TO 0.7 MCQ/KG/HR THAN BACK UP. PT ALSO MED WITH ATIVAN PRN DUE TO AGITATION. BILAT SOFT WRIST RESTRAINTS ON. PT TURNED Q2HR. POWER GLIDE PLACED TO LEFT UPPER ARM, PT TOLERATED WELL. CARDIZEM TITRATED UP TO 15 MG/HR THAN BACK DOWN TO 5 MG/HR DUE TO HEART RATE. TUBE FEED AT GOAL. PT USED BIPAP ALL NIGHT. ORAL CARE DONE Q4HRS. REPORT TO ON COMING NURSE.
--- NOTE | 2021-05-20 10:00 | NUR ---
Care Assumed 0700 Precedex GTT 1.1 mcg/kg/hr, see flow sheet. Diltiazem 5 mg/hr, HR 70-110's remains in Afib. Pt unable to follow commands and only responds to noxious stimuli when care assumed. Precedex titerated down. On Bipap 10/8, FIO2 30%, lung sounds dim. Angelo in place. pIVOT 1.5 @ GOAL OF 45 ML/HR. Will continue to monitor.
--- NOTE | 2021-05-20 13:46 | NUR ---
Update- Precedex 0.9 mcg/kg/hr and diltiazem 5 mg/hr. Pt speaking and states having anxiety, treated per emar. Unable to state location or event. Following commands, weak receiver bulk system strength. Moves all extrems. Bipap settings unchanged.
--- NOTE | 2021-05-20 18:30 | NUR ---
Shift Summary Precedex GTT 1.1 MCG/KG/HR. Diltiazem 5 mg/hr. Pt remains in AFIB. Able to follow directions, not oriented to location or event. Remained on BIPAP 08/27, FIO2 30%. Currently recieving a break from BIPAP per request, on 3 L via NC, SPO2 > 90%. Wheezing can be heard, lung sounds dim. Angelo in place draning to gravity. Dobhoff with PIvot 1.5 @ goal of 45 ml/hr, hypoactive BT. SWB remain in place.
--- NOTE | 2021-05-20 19:35 | NUR ---
ASSUMED CARE REPORT RECEIVED FROM DELBERT RN. PT RESTLESS IN BED WITH BIPAP ON. BIPAP SETTINGS 08/27, 30%. BILATERAL SOFT WRIST RESTRAINTS IN PLACE TO PREVENT REMOVAL OF LINES. PT AFIB ON MONITOR, HR 90-115'S, SBP 115'S, SPO2 98%. RUIZ DRAINING TO GRAVITY. TF PIVOT 1.5 RUNNING AT GOAL RATE OF 45 ML/HR WITH 30 Q4H WATER FLUSHES. CARDIZEM INFUSING AT 5 MG/HR AND PRECEDEX AT 1.2 MCG/KG. PT FOLLOWING COMMANDS, SLURRED/GARBLED SPEECH. ALERT TO SELF.
[2021-05-21 04:06] LABS: BASOPHILS ABSOLUTE AUTO 0.01 K/mm3 (0.00-0.23); BASOPHILS PERCENT AUTO 0 % (0-2); EOSINOPHILS PERCENT AUTO 0 % (0-6); Hematocrit 43.9 % (37.0-53.0); Hemoglobin 13.6 g/dL (13.5-17.5); IMMATURE GRAN ABSOLUTE AUTO 0.13 K/mm3 (0.00-0.10); IMMATURE GRAN PERCENT AUTO 1 % (0-1); LYMPHOCYTES ABSOLUTE AUTO 0.34 K/mm3 (0.84-5.20); LYMPHOCYTES PERCENT AUTO 3 % (21-46); MONOCYTES ABSOLUTE AUTO 0.32 K/mm3 (0.16-1.47); MONOCYTES PERCENT AUTO 3 % (4-13); Mean Corpuscular Volume 97 fL (80-100); Mean Platelet Volume 9.9 fL (9.1-12.4); NEUTROPHILS ABSOLUTE AUTO 10.19 K/mm3 (1.96-9.15); NEUTROPHILS PERCENT AUTO 93 % (41-73); Platelet Count 277 K/mm3 (150-400); RDW Coefficient Variation 14.8 % (11.7-14.2); RDW Standard Deviation 53.5 fL (35.1-46.3); Red Blood Cell Count 4.53 M/mm3 (4.30-5.90); White Blood Cell Count 10.99 K/mm3 (4.00-11.30)
[2021-05-21 04:31] LABS: Anion Gap 3 mmol/L (6-16); Blood Urea Nitrogen 44 mg/dL (8-24); Bun/Creatinine Ratio 47.8 (12.0-20.0); CO2, Blood 32 mmol/L (21-32); Calcium, Blood 7.3 mg/dL (8.5-10.1); Chloride, Blood 113 mmol/L (98-108); Creatinine, Blood 0.92 mg/dL (0.60-1.20); Glomerular Filtration Rate >60 (60-); Glucose, Blood 216 mg/dL (70-99); Potassium, Blood 4.9 mmol/L (3.5-5.5); Sodium, Blood 148 mmol/L (136-145)
--- NOTE | 2021-05-21 06:26 | NUR ---
SHIFT SUMMARY PT RESTING COMFORTABLY IN BED, BIPAP IN PLACE. BIPAP SETTING REMAIN 10/8, 30%. VSS T/O SHIFT. PRECEDEX INFUSING AT 0.8 MCG/KG AND CARDIZEM AT 5 ML/HR. PT OPENS EYES TO VERBAL STIMULI, FOLLOWS COMMANDS. PRN ATIVAN GIVEN ONCE THIS SHIFT FOR AGITATION. RUIZ DRAINING VERO URINE TO GRAVITY. LUNGS CLEAR WITH DIMINISHED BASES. WILL CONTINUE TO MONITOR UNTIL REPORT GIVEN TO ONCOMING RN.
--- NOTE | 2021-05-21 09:44 | NUR ---
Care Assumed 0700 Precedex titerated to 1 mcg/kg/hr. Diltiazem placed on SB per Dr. Andino. Provider would like Diltiazem restarted once HR is consistently above 130's. Currently below. Remains in AFIB. Following commands, able to state being in [place] at the hospital, strong top installer strength. Moves all extrems. On Bipap /8, FIO2 30%, SPO2 > 90%. Has thick pelaez oral secreations with rare cough. Oral care provided. SWB remain in place. VSS.
--- NOTE | 2021-05-21 11:55 | NUR ---
Provider call Dr. Andino called for Cardizem. New order recieved to increase to Cardizem to 60 mg Q6. Pts Cardizem GTT restarted at 5 mg/hr for HR > 130's. See vitial sign flow sheet. Remains in AFIB. Able to follow commands. Kicking legs and states, "I want to go home". Updated on current care being provided and importance of staying at the hospital. Pt given BIPAP break and states, "I cannot breath." SPO2 > 95%. Bipap restarted after at same settings.
--- NOTE | 2021-05-21 12:11 | NUR ---
Pallative Care Alexandrea in to see patient but patient currently sleeping. Will allow for rest and reassess after. Will attempt to move to chair once patient is awake.
--- NOTE | 2021-05-21 13:05 | NUR ---
Shift Summary Report Given to MARIAH Hannah. No other changes noted in patient. See previous notes.
--- NOTE | 2021-05-21 13:12 | NUR ---
Assumed care of this pt. He is sleeping in bed with eyeys closed. He has his Bipap on and is O2 sat is 97%. Diltiazam and Precedex are both infusing as ordered. Wrist restraints are in place. Tube feeding is running on the pump. Pt was repositioned in bed and face was washed around his mask. VSS and call light is in reach.
--- NOTE | 2021-05-21 15:31 | NUR ---
Per Dr Duncan the Pt was switched back over to 5 LPM via NC. His O2 Sats are currently at 100%. Oral care was completed and he was boosted in bed and his HOB is elevated.
--- NOTE | 2021-05-21 17:55 | NUR ---
Shift Summary Pt awakens to his name and mumbles at times. His IV infusions continue as previoulsy noted. He is currently on 1.5 LPM via NC and his O@2 SAT is 97%. He is resting comfortably. His wrist restraints remain in place. He has been boosted up in bed and the HOB is elevated. He has his call light in reach and is visible from the nurses station.
--- NOTE | 2021-05-22 05:26 | NUR ---
SHIFT SUMMARY PATIENT IS FOUND TO BE A&O1-2, INTERMITTENTLY FOLLOWING COMMANDS, WITH GARBLED MOSTLY INCOMPREHENSIBLE SPEECH. GEN WEAKNESS. BILAT WRIST RESTRAINTS IN PLACE FOR AGITATION. PATIENT RESTLESS MOVING LEGS IN BED AND MOANING FREQUENTLY. MAINTAINED O2 SAT >92% ALL SHIFT ON 1.5LNC. ENCOURAGING STRONGER COUGH PATIENT HAS TROUBLE GETTING SECRETIONS UP. PRODUCTIVE AT TIMES. AFIB ON THE MONITOR 90'S-110'S ALL NIGHT. DOBHOFF IN PLACE WITH TUBE FEEDS RUNNING AT GOAL. RUIZ PATENT DRAINING TO GRAVITY. PRECEDEX AND CARDIZEM DRIP RUNNING PER ORDER. Q2H TURNS AND ORAL CARE PERFORMED. NO ACUTE CONCERNS AT THIS TIME. WILL CONTINUE TO MONITOR UNTIL REPORT GIVEN TO DAYSHIFT RN.
[2021-05-22 07:16] LABS: BASOPHILS ABSOLUTE AUTO 0.02 K/mm3 (0.00-0.23); BASOPHILS PERCENT AUTO 0 % (0-2); EOSINOPHILS PERCENT AUTO 0 % (0-6); Hematocrit 45.5 % (37.0-53.0); Hemoglobin 14.2 g/dL (13.5-17.5); IMMATURE GRAN ABSOLUTE AUTO 0.16 K/mm3 (0.00-0.10); IMMATURE GRAN PERCENT AUTO 1 % (0-1); LYMPHOCYTES ABSOLUTE AUTO 0.51 K/mm3 (0.84-5.20); LYMPHOCYTES PERCENT AUTO 4 % (21-46); MONOCYTES ABSOLUTE AUTO 0.71 K/mm3 (0.16-1.47); MONOCYTES PERCENT AUTO 6 % (4-13); Mean Corpuscular HGB 30.1 pg (26.0-34.0); Mean Corpuscular HGB Conc 31.2 g/dL (31.5-36.5); Mean Corpuscular Volume 97 fL (80-100); Mean Platelet Volume 10.8 fL (9.1-12.4); NEUTROPHILS ABSOLUTE AUTO 10.55 K/mm3 (1.96-9.15); NEUTROPHILS PERCENT AUTO 88 % (41-73); Platelet Count 264 K/mm3 (150-400); RDW Coefficient Variation 14.7 % (11.7-14.2); RDW Standard Deviation 52.9 fL (35.1-46.3); Red Blood Cell Count 4.71 M/mm3 (4.30-5.90); White Blood Cell Count 11.95 K/mm3 (4.00-11.30)
[2021-05-22 07:26] LABS: Anion Gap 3 mmol/L (6-16); Blood Urea Nitrogen 41 mg/dL (8-24); Bun/Creatinine Ratio 48.2 (12.0-20.0); CO2, Blood 31 mmol/L (21-32); Calcium, Blood 7.3 mg/dL (8.5-10.1); Chloride, Blood 112 mmol/L (98-108); Creatinine, Blood 0.85 mg/dL (0.60-1.20); Glomerular Filtration Rate >60 (60-); Glucose, Blood 218 mg/dL (70-99); Potassium, Blood 4.3 mmol/L (3.5-5.5); Sodium, Blood 146 mmol/L (136-145)
--- NOTE | 2021-05-22 08:30 | NUR ---
ASSUMED CARE BEDSIDE REPORT RECIEVED. PT LAYING IN BED, SOMNOLENT, DIFFICULT TO ARROUSE INITIALLY. PRECEDEX TITRATED DOWN FROM 1.2 TO 0.7 MCG/KG/MIN. PT MORE AROUSEABLE TO VERBAL STIMULI AFTER PRECEDEX TITRATION. PT FOLLOWS SIMPLE COMMANDS. SPEECH IS SLURRED / INCOMPREHENSABLE. SOME CLEAR WORDS AT TIMES. VITAL SIGNS STABLE. PT ON 1.5 L O2 NC. CARDIZEM GTT INFUSING AT 10 MG/HR. POWERGLIDE TO FAIZAN C/D/I. RUIZ IN PLACE WITH YELLOW OUTPUT NOTED. SBW RESTRAINTS IN PLACE. DOBHOFF IN PLACE WITH TF INFUSING AT GOAL RATE. PT WITH MOIST COUGH. WILL CONTINUE TO MONITOR.
--- NOTE | 2021-05-22 17:34 | NUR ---
FAMILY AT BEDSIDE PT STEP SON FITO AT BEDSIDE. NOTIFIED BY REMOTE MONITORING THAT PT VISITOR HAD TAKEN PT BELONGINGS FROM SHELF AND OPENED PT WALLET AND HAS LITTLE SPREAD OUT ALL OVER THE PT BEDSIDE TABLE. THIS RN ASKED PT IF HE CONSENTED FOR VISITOR TO BE LOOKING THROUGH BELONGINGS AND TAKING OUT LITTLE. PT STATED " OH YEAH THATS FINE, HE IS HELPING ME COUNT IT AND PUT IT AWAY". PT VISITOR WITHOUT ANY QUESTIONS OR CONCERNS. VISITOR STATES "IM GOING TO PUT MONEY IN THE BANK FOR THE HIM, I WILL BE BACK." FILM DRYING MACHINE OPERATOR MARYLIN UPDATED TO/WITNESSED SITUATION. WILL CONTINUE TO MONITOR.
--- NOTE | 2021-05-22 19:29 | NUR ---
REPORT RECEIVED FROM CAILIN AT 1845. ROOM IS NOT YET CLEAN. REPORT GIVEN TO MARIAH COOPER WHO WILL BE ASSUMING CARE OF PATIENT.
--- NOTE | 2021-05-22 19:45 | NUR ---
TRANSFER TRANSFERRED BY BED TO PCU 9 AT THIS TIME.
--- NOTE | 2021-05-23 00:47 | NUR ---
PATIENT TRANSFERED FROM ICU AT APPROXIMETLY 2030. FOUND TO BE IN NSR ON THE MONITOR IN THE 80'S. CARD DRIP STILL GOING AT 10MG/HR SO TITRATED TO 5 PER PROTOCOL. CONVERTED BACK TO AFIB @2200 SO DRIP TITRATED TO 15MG/HR PER ORDER. NO CHANGE IN RATE WITH THIS AND CONTINUED TO HAVE 130-170 BPM. MD NOTIFIED AFTER THIS SUSTAINED FOR 30 MIN AFTER RATE CHANGE. 15MG CARDIZEM IV PUSH ORDERED AND GIVEN. CURRENTLY AFIB @120BPM. PATIENT ASYMPTOMATIC T/O RESTING IN BED. VSS. WILL CONTINUE TO MONITOR.
--- NOTE | 2021-05-23 01:14 | NUR ---
PATIENT CONVERTED FROM AFIB TO NSR WITH PAC'S AROUND 0100 A BIT AFTER CARDIZEM 15MGIV PUSH GIVEN. HR IN 90'S AT THIS TIME. WILL CONTINUE TO MONITOR.
[2021-05-23 04:07] LABS: BASOPHILS ABSOLUTE AUTO 0.02 K/mm3 (0.00-0.23); BASOPHILS PERCENT AUTO 0 % (0-2); EOSINOPHILS ABSOLUTE AUTO 0.03 K/mm3 (0.00-0.68); EOSINOPHILS PERCENT AUTO 0 % (0-6); Hemoglobin 14.1 g/dL (13.5-17.5); IMMATURE GRAN ABSOLUTE AUTO 0.29 K/mm3 (0.00-0.10); IMMATURE GRAN PERCENT AUTO 2 % (0-1); LYMPHOCYTES ABSOLUTE AUTO 1.56 K/mm3 (0.84-5.20); LYMPHOCYTES PERCENT AUTO 9 % (21-46); MONOCYTES ABSOLUTE AUTO 1.22 K/mm3 (0.16-1.47); MONOCYTES PERCENT AUTO 7 % (4-13); Mean Corpuscular HGB Conc 31.3 g/dL (31.5-36.5); Mean Corpuscular Volume 96 fL (80-100); Mean Platelet Volume 9.9 fL (9.1-12.4); NEUTROPHILS ABSOLUTE AUTO 13.84 K/mm3 (1.96-9.15); NEUTROPHILS PERCENT AUTO 82 % (41-73); Platelet Count 279 K/mm3 (150-400); RDW Coefficient Variation 15.2 % (11.7-14.2); RDW Standard Deviation 54.1 fL (35.1-46.3); White Blood Cell Count 16.96 K/mm3 (4.00-11.30)
[2021-05-23 04:22] LABS: Anion Gap 2 mmol/L (6-16); Blood Urea Nitrogen 40 mg/dL (8-24); Bun/Creatinine Ratio 46.1 (12.0-20.0); CO2, Blood 33 mmol/L (21-32); Calcium, Blood 7.6 mg/dL (8.5-10.1); Chloride, Blood 112 mmol/L (98-108); Creatinine, Blood 0.87 mg/dL (0.60-1.20); Glomerular Filtration Rate >60 (60-); Glucose, Blood 125 mg/dL (70-99); Potassium, Blood 3.8 mmol/L (3.5-5.5); Sodium, Blood 147 mmol/L (136-145)
--- NOTE | 2021-05-23 06:22 | NUR ---
SHIFT SUMMARY PATIENT FOUND TO BE A&OX4, WITH GEN WEAKNESS AND GARBLED SPEECH. LEFT SIDE WEAKER THAN RIGHT FROM PREVIOUS CVA. PRETTY RESTLESS THROUGH THE NIGHT AND CALLING OUT FOR NURSE FREQUENTLY. COMPLIANT WITH CARE ALL SHIFT. VSS. ON 1.5LNC. TACHYPENIC. EX WHEEZES NOTED. STILL WITH SOME THICK SECRETIONS AND A STRONGER COUGH.SEE PREVIOUS NOTED FOR HR DETAILS. CONVERTED TO NSR ONE MORE TIME AND THEN BACK TO AFIB @115 AT THIS TIME.CARD DRIP GOING AT 20MG/HR WITH MD ORDER. NO DISTRESS OR CP NOTED. NPO. BM X2 IN BRIEF. NPO AND TUBE FEEDS INFUSING THROUGH NG AT GOAL RATE OF 45ML/HR. RUIZ PATENT DRAINING TO GRAVITY. Q2H TURNS AND ORAL CARE PERFORMED. NO ACUTE CONCERNS AT THIS TIME. WILL CONTINUE TO MONITOR UNTIL REPORT GIVEN TO DAYSHIFT RN.
--- NOTE | 2021-05-23 18:19 | NUR ---
SHIFT SUMMARY: PT CONTINUED A&OX4 W/GENERALIZED WEAKNESS, MAINTAINED O2 SATS >92% ON 1.5 L/MIN, RESPIRATIONS TACHYPNEIC AND SLIGHTLY LABORED. PRODUCTIVE COUGH CONTINUES T/OUT DAY WITH SUCTIONING NEEDED AND ORAL CARE PROVIDED OFTEN. PT CONVERTED TO SR A COUPLE TIMES T/OUT THE DAY BUT CONVERTED AT 1730 AND CONTINUES TO SUSTAIN SR, DILTIAZEM GTT PLACED ON STANDBY AT 1800. INDWELLING RUIZ CONTINUES PATENT AND DRAINING TO GRAVITY. PT CONTINUES NPO, TUBE FEEDING STILL CONTINUOUS AT 45 ML/HR, PT TOLERATING WELL. AT THIS TIME, PT IS RESTING QUIETLY IN ROOM WITH TV ON. WILL CONTINUE TO MONITOR AND TREAT ACCORDINGLY UNTIL CHANGE OF SHIFT.
[2021-05-24 06:06] LABS: BASOPHILS ABSOLUTE AUTO 0.03 K/mm3 (0.00-0.23); BASOPHILS PERCENT AUTO 0 % (0-2); EOSINOPHILS ABSOLUTE AUTO 0.07 K/mm3 (0.00-0.68); EOSINOPHILS PERCENT AUTO 0 % (0-6); Hematocrit 43.7 % (37.0-53.0); IMMATURE GRAN ABSOLUTE AUTO 0.35 K/mm3 (0.00-0.10); IMMATURE GRAN PERCENT AUTO 2 % (0-1); LYMPHOCYTES ABSOLUTE AUTO 1.36 K/mm3 (0.84-5.20); LYMPHOCYTES PERCENT AUTO 7 % (21-46); MONOCYTES ABSOLUTE AUTO 1.32 K/mm3 (0.16-1.47); MONOCYTES PERCENT AUTO 7 % (4-13); Mean Corpuscular HGB 30.1 pg (26.0-34.0); Mean Corpuscular Volume 94 fL (80-100); Mean Platelet Volume 10.3 fL (9.1-12.4); NEUTROPHILS ABSOLUTE AUTO 16.18 K/mm3 (1.96-9.15); NEUTROPHILS PERCENT AUTO 84 % (41-73); Platelet Count 265 K/mm3 (150-400); RDW Coefficient Variation 15.5 % (11.7-14.2); RDW Standard Deviation 53.2 fL (35.1-46.3); Red Blood Cell Count 4.65 M/mm3 (4.30-5.90); White Blood Cell Count 19.31 K/mm3 (4.00-11.30)
[2021-05-24 06:23] LABS: Anion Gap 2 mmol/L (6-16); Blood Urea Nitrogen 35 mg/dL (8-24); Bun/Creatinine Ratio 38.8 (12.0-20.0); CO2, Blood 30 mmol/L (21-32); Calcium, Blood 8.3 mg/dL (8.5-10.1); Chloride, Blood 111 mmol/L (98-108); Glomerular Filtration Rate >60 (60-); Glucose, Blood 168 mg/dL (70-99); Potassium, Blood 4.2 mmol/L (3.5-5.5); Sodium, Blood 143 mmol/L (136-145)
--- NOTE | 2021-05-24 07:47 | NUR ---
SHIFT SUMMARY PT SLEEPING T/O SHIFT. WILL RESPOND TO VERBAL AND PAIN STIMULI. PT ON BIPAP 30%FIO2, DID DIP DOWN TO LOW 60'S DURING EVENING RT WAS NOTIFIED BUT MAINTAIN WELL OVER 90% MOST OF NIGHT. IS NOW ON 6L NC. PT STARTED TO BECOME MORE ALERT AROUND 0500 AND PULLED RIGHT HAND IV OUT. DID HAVE AGITATION WHEN GIVING MEDICATIONS. PT IS INCONT OF URINE, BRIEF IN PLACE.
[2021-05-24 08:32] LABS: Bicarbonate Venous 29.9 mmol/L (24.0-30.0); PCO2 Venous 39.1 mmHg (38-42); PO2 Venous 44.6 mmHg (38-42)
--- NOTE | 2021-05-24 12:43 | NUR ---
late entry note form 05/21/[address] gonzalez asked to reach out to find a decision maker. Called L[facility] again. the are not willing to be decion maker they care for him and help him they have a group through their [facility]. Pt has noot been involved with his family for many years. Discussed with doctor gonzalez if pt declined getting [facility] consult for decisions. Spoke again with latha to make sure she know he was out of icu. She did and they have set up having their friends come everyday and she will be in tomorrow. She said she will try to talk to him about his medical needs. Advised her he may not be able to make decisons. They are cleaning up his camper advised her he may not ever be able to live on his own again and is still very ill. advised nursing to have speech see him again and do an assessment. May want to see in latha or will be guardian will update medicare sales representative and physician.
--- NOTE | 2021-05-24 14:05 | NUR ---
Met. pt. lying in beds seems to be confused , encouraged pt. and offered some prayers and blessing.
--- NOTE | 2021-05-24 14:08 | NUR ---
Met pt. in bed seems confused offered some prayers and blessings
--- NOTE | 2021-05-24 18:18 | NUR ---
SHIFT SUMMARY: PT WOB AND LEVEL OF AWARENESS INCREASES T/OUT THE DAY. PT WAS PLACED ON BIPAPHFT THIS AM BY RT, ACCESSORY MUSCLE USE CONTINUES BUT IS IMPROVED. PT CONVERTING BETWEEN AFIB AND SIN RHYTHM T/OUT THE DAY, CURRENTLY IN SR. CARDIZEM GTT HAS BEEN PLACED ON STANDBY. PALLIATIVE CARE CONSULT INITIATED TODAY, PT RECEIVES VISIT FROM HIS PICKER TENDER HELPER IN AN ATTEMPT TO AID HIM WITH POLST PLANNING WITH MARIAH TRAN AT BEDSIDE. PT SPEECH CONTINUES DIFFICULT TO UNDERSTAND, ABLE TO ANSWER QUESTIONS AND IS COOPERATIVE WITH CARE. WILL CONTINUE TO MONITOR AND TREAT ACCORDINGLY UNTIL CHANGE OF SHIFT.
--- NOTE | 2021-05-24 20:24 | NUR ---
Nimisha in from patient [facility] tried to speak with him regarding his trailer and belongings. Pt was able to speak briefly but would loose track and could not follow conversation. She asked hism if he knew where he would go when he and he started crying and could not tell her. Very difficult conversation he was trying to engage and struggline. She then aske him to tell me his wishes on care. Very slowly reviewed his care and tried to talk to him about getting better. I then asked if he would want to got back to icu and get be put on a ventilator for a time. He said sure I think so and then started talking about recipts for his trailer tail lights. Stopped conversation. His friend was distraught at how much he had declined. Will look at ethic and ot/pt /st. Pt not very competent at this time. Will see if care manger can call his case manger.
--- NOTE | 2021-05-24 22:56 | NUR ---
CARE ASSUMPTION PT IS ALERT. PT DENIES CHEST PAIN OR SOB. OM HIGH FLOW 25% AND DOES NOT KEEP IT ON. RUIZ CATHETER IN PLACE AND DRAINING. PT IS IRRITABLE AND ANXIOUS. TUBE FEEDING CONT. CALL LIGHT WITHIN REACH, DOOR OPEN, BED ALARM ON WITH SIDE RAIL. WILL CONTINUE TO MONITOR.
[2021-05-25 04:13] LABS: BASOPHILS ABSOLUTE AUTO 0.02 K/mm3 (0.00-0.23); BASOPHILS PERCENT AUTO 0 % (0-2); EOSINOPHILS ABSOLUTE AUTO 0.08 K/mm3 (0.00-0.68); EOSINOPHILS PERCENT AUTO 1 % (0-6); Hematocrit 41.5 % (37.0-53.0); Hemoglobin 13.2 g/dL (13.5-17.5); IMMATURE GRAN ABSOLUTE AUTO 0.19 K/mm3 (0.00-0.10); IMMATURE GRAN PERCENT AUTO 1 % (0-1); LYMPHOCYTES ABSOLUTE AUTO 1.52 K/mm3 (0.84-5.20); LYMPHOCYTES PERCENT AUTO 9 % (21-46); MONOCYTES ABSOLUTE AUTO 1.02 K/mm3 (0.16-1.47); MONOCYTES PERCENT AUTO 6 % (4-13); Mean Corpuscular HGB Conc 31.8 g/dL (31.5-36.5); Mean Corpuscular Volume 94 fL (80-100); Mean Platelet Volume 10.8 fL (9.1-12.4); NEUTROPHILS ABSOLUTE AUTO 14.83 K/mm3 (1.96-9.15); NEUTROPHILS PERCENT AUTO 84 % (41-73); Platelet Count 210 K/mm3 (150-400); RDW Coefficient Variation 15.2 % (11.7-14.2); RDW Standard Deviation 52.5 fL (35.1-46.3); White Blood Cell Count 17.66 K/mm3 (4.00-11.30)
[2021-05-25 04:32] LABS: Anion Gap 4 mmol/L (6-16); Blood Urea Nitrogen 27 mg/dL (8-24); Bun/Creatinine Ratio 34.9 (12.0-20.0); CO2, Blood 28 mmol/L (21-32); Calcium, Blood 7.8 mg/dL (8.5-10.1); Chloride, Blood 109 mmol/L (98-108); Creatinine, Blood 0.77 mg/dL (0.60-1.20); Glomerular Filtration Rate >60 (60-); Glucose, Blood 134 mg/dL (70-99); Potassium, Blood 4.2 mmol/L (3.5-5.5); Sodium, Blood 141 mmol/L (136-145)
--- NOTE | 2021-05-25 06:24 | NUR ---
SHIFT SUMMARY PT IS ALERT BUT HAS CONFUSION, IRRITABLE AND RESTLESS. HAS HAD VERY LITTLE SLEPP AND HAS BEEN SCREAMING AT TIMES. GARBLED SPEECH. PT SCOOTS TO FOOT OF THE BED VERY OFTEN. THERE HAS BEEN NO ACUTE CHANGES, DENIES CHEST PAIN OR SOB. DENIES ALL PAIN. ON HI FLOW THERAPY WITH 02 SETTINGS OF 25% AND 45L FLOW. FEEDING ARE CONTINUOUSLY WITH PUMP. RUIZ PATENT AND DRAINING TO GRAVITY.
--- NOTE | 2021-05-25 13:55 | NUR ---
Pt. is lying in bed sleepy prayed for the pt. and blessed him.
--- NOTE | 2021-05-25 14:18 | NUR ---
PT HAS BEEN PULLING AT HIS OXYGEN TUBING AND DOBHOFF TODAY, THE DOBHOFF WAS PULLED OUT SLIGHTLY HOWEVER RN WAS ABLE TO ADVANCE IT BACK INTO PLACE. CHEST X-RAY CONFIRMED PLACEMENT. SEVERAL HOURS LATER IT WAS FOUND PULLED OUT TO THE 35cm JOSSELYN, THE TUBE WAS NOT ABLE TO BE READVANCED SO IT WAS PULLED. DR. MAGAÑA WAS CALLED BUT WAS NOT REACHED, WILL REACH OUT AGAIN
--- NOTE | 2021-05-25 14:19 | NUR ---
Ethics consult order received and processed. Chart notes reviewed and case details discussed with moura stakeholders. Two provider attestation medically confirming that the principal is in an advanced stage of a progressive and terminal illness, continues to suffer ongoing decline and incapacitation, and lacks proxy or subsitute decision making support, has been recorded in the EHR. I explained to the provider that under the circumstances, in accordance with ORS 127.635, it would be morally and legally licit to forgo and or withhold life-sustaining and or heroic procedures. Further, an election for hospice treatment may be pursued under the direction of the supervising physician, if deemed to be the most clinically responsible and dignified approach. Thank you for this consult. Ruslan Hayward Th.D.
--- NOTE | 2021-05-26 06:15 | NUR ---
SHIFT SUMMARY PT CONTINUES A&O TO SELF & FOLLOWING INSTRUCTIONS. PT SPEECH GARBLED/MUMBLED, DIFFICULT TO UNDERSTAND. PT SLEEPING MAJORITY OF SHIFT, DOES WAKE TO VERBAL STIMULATION. VSS. SPO2 > 92% ON AIRVO @ 40L FIO2 25%. MONITOR SHOWING INTERMITTENT SR W/ PAC's & AFIB. PT REMAINS NPO. NO -JO-ANN IN PLACE.
[2021-05-26 08:12] LABS: BASOPHILS ABSOLUTE AUTO 0.03 K/mm3 (0.00-0.23); BASOPHILS PERCENT AUTO 0 % (0-2); EOSINOPHILS ABSOLUTE AUTO 0.05 K/mm3 (0.00-0.68); EOSINOPHILS PERCENT AUTO 0 % (0-6); Hematocrit 43.4 % (37.0-53.0); Hemoglobin 13.7 g/dL (13.5-17.5); IMMATURE GRAN ABSOLUTE AUTO 0.14 K/mm3 (0.00-0.10); IMMATURE GRAN PERCENT AUTO 1 % (0-1); LYMPHOCYTES ABSOLUTE AUTO 1.64 K/mm3 (0.84-5.20); LYMPHOCYTES PERCENT AUTO 12 % (21-46); MONOCYTES PERCENT AUTO 7 % (4-13); Mean Corpuscular HGB Conc 31.6 g/dL (31.5-36.5); Mean Corpuscular Volume 95 fL (80-100); Mean Platelet Volume 11.3 fL (9.1-12.4); NEUTROPHILS ABSOLUTE AUTO 11.25 K/mm3 (1.96-9.15); NEUTROPHILS PERCENT AUTO 80 % (41-73); Platelet Count 242 K/mm3 (150-400); RDW Coefficient Variation 15.3 % (11.7-14.2); RDW Standard Deviation 53.9 fL (35.1-46.3); Red Blood Cell Count 4.56 M/mm3 (4.30-5.90); White Blood Cell Count 14.11 K/mm3 (4.00-11.30)
[2021-05-26 08:52] LABS: Anion Gap 4 mmol/L (6-16); Blood Urea Nitrogen 29 mg/dL (8-24); Bun/Creatinine Ratio 33.7 (12.0-20.0); CO2, Blood 26 mmol/L (21-32); Calcium, Blood 7.9 mg/dL (8.5-10.1); Chloride, Blood 110 mmol/L (98-108); Creatinine, Blood 0.86 mg/dL (0.60-1.20); Glomerular Filtration Rate >60 (60-); Glucose, Blood 76 mg/dL (70-99); Potassium, Blood 4.2 mmol/L (3.5-5.5); Sodium, Blood 140 mmol/L (136-145)
--- NOTE | 2021-05-26 10:49 | NUR ---
PT ALERT TO SELF AND ABLE TO TELL ME WHERE HE IS. THIS AM SPEECH SOUNDING VERY GARBELED, STARTING TO CLEAR SLIGHTLY THROUGHOUT THE MORINING. HARD TO UNDERSTAND. ON AIRVO AT 40L AND 25% O2 SATING AROUND 93-94%. LUNGS SOUNDING COARSE. TELE SHOWING SINUS TACH WITH PAC'S AND HR 110. DENIES CHEST PAIN/PRESSURE. DENIES PAIN OVERALL. BOWEL TONES PRESENT. BRUISING SCATTERED THROUGHOUT. REDNESS IN GROIN. LOOKING LIKE PATIENT HAS THRUSH, NEW ORDER. Q2 ORAL CARE WITH GREEN SUCTION SWABS. SPEECH THIS AM. NPO CONTINUES AND NON ORAL MEDICATIONS. BEDREST AT THIS TIME. BED ALARM ON FOR SAFETY. NEW ORDERS FOR CLINIMIX TO START. CALL LIGHT IN REACH. WILL CONTINUE TO MONITOR.
--- NOTE | 2021-05-26 13:13 | NUR ---
PT ON 1 L 02 NASAL CANNULA SATING 94-95%. SEEMS TO BE MORE ALERT AND SPEECH IS CLEARER. PT STILL HARD TO UNDERSTAND AT TIMES. PATIENT ALSO NOT MAKING SENSE AT TIMES. VITAL SIGNS STABLE. CLINIMIX INFUSING. WILL CONTINUE TO MONITOR.
--- NOTE | 2021-05-26 17:30 | NUR ---
[facility] AND OF [facility] IN TO VISIT AND TALK WITH PATIENT. PT SITTING UP IN BED AND TALKING WITH THEM. VOICE IS GARBELED BUT ABLE TO UNDERSTAND MOST OF SPEECH. PT IS ENGAGED IN CONVERSTATION. REMAINS ON 1 L O2 NASAL CANNULA SATING ABOVE 94%. TELE SHOWING SINUS TACH WITH PAC'S WITH HR 108. DENIES PAIN. MOVING AROUND IN BED. BED ALARM ON FOR SAFETY. ORAL CARE Q2 AND NYSTATIN FOR THRUSH. BED BATH GIVEN THIS AM. CLINIMIX INFUSING. BEDREST AT THIS TIME. CALL LIGHT IN REACH. WILL CONTINUE TO MONITOR.
--- NOTE | 2021-05-27 05:54 | NUR ---
SHIFT SUMMARY NO ACUTE CHANGES THIS SHIFT. PT A&OX3. FOLLOWS DIRECTIONS, THOUGH SPEECH IS GARBLED/HARD TO UNDERSTAND. SP02>92% ON 1L NC. PT SUCTIONED SELF AFTER PRODUCTIVE COUGHS. ORAL CARE PERFORMED X2, PT REFUSED OTHER ORAL CARE ATTEMPTS. TELEMTRY READ SR W/ PACS, HR 90'S-110'S. PT DENIED PAIN. REPOSITION SELF IN BED. CLINIMIX INFUSING PER EMAR. CALL LIGHT IN [facility]. WILL GIVE REPORT TO ONCOMING NURSE.
--- NOTE | 2021-05-27 10:10 | NUR ---
PT ALERT TO SELF AND SITUATION. ABLE TO TELL ME SOME OF HIS BACKGROUND. SPEECH MORE CLEAR TODAY COMPARED TO YESTERDAY DAY SHIFT. ON 1 L O2 NASAL CANNULA SATING 94-95%. DENIES SOB. BELLY BREATHING AT TIMES. BREATHING TREATMENTS IN PLACE. TELE SHOWING SINUS WITH HR 90'S. DENIES CHEST PAIN/PRESSURE. DENIES OVERALL PAIN. VITAL SIGNS STABLE. BOWEL TONES HEARD. SPEECH THERAPY ORDERS IN PLACE. TOLERATING PUREE DIET AT THIS TIME. RUIZ CATH IN PLACE DRAINING CLEAR/YELLOW URINE. ATTENDS IN PLACE. BEDREST AT THIS TIME. CALL LIGHT IN REACH. WATCHING TV AND DENIES NEEDS. WILL CONTINUE TO MONITOR.
--- NOTE | 2021-05-27 12:58 | NUR ---
TRANSFER TO MEDICAL: NO ACUTE CHANGES. SEE PREVIOUS NOTE. PT REMAINS STABLE. VITAL SIGNS STABLE. ON 1 L O2 SATING ABOVE 94%. TELE SHOWING SINUS WITH HR 90'S. DENIES PAIN/NEEDS AT THIS TIME. SPEECH PRECAUTIONS IN PLACE. TRANFERRED UP TO MEDICAL WITH ALL PERSONAL BELONGINGS.
--- NOTE | 2021-05-27 17:27 | NUR ---
PATIENT IS ALERT AND ORIENTED. HE IS BEDBOUND. GARBLED SPPECH. RUIZ IS IN PLACE, DRAINING. 1L O2 VIA NC. NO COMPLAINTS OF PAIN. WILL CONTINUE TO MONITOR
--- NOTE | 2021-05-28 05:52 | NUR ---
INTERNAL MEDICINE NURSE PRACTITIONER SUMMARY NO ACUTE CHANGES. PT AAOX4 AND PLEASANT. RUIZ CATH PATENT AND DRAINING. PT DENIES PAIN, SOB, N/V. PT HAS BEEN AWAKE MOST OF THE NIGHT WATCHING TV OR PLAYING GAMES ON HIS PHONE. PT DID WELL WITH PO INTAKE OF MEDICATIONS WITH APPLESAUCE. VSS, WILL CONTINUE TO MONITOR.
--- NOTE | 2021-05-28 13:45 | NUR ---
Spoke with Kanchan Small and discussed case. Pt wanting to return home and is refusing SNF. Hospice discussion took place with Pt and hospitalist. Pt resting in bed upon arrival. Offered therapeutic listening as Pt reports only having 6 months to live. Attempted to assess Pt's understanding of his disease process. Pt speaks extremely fast and segways into several conversations. Listened as Pt reports plan to go home with hospice. Pt reports his neighbors will move in with hime and care for him. This RN inquired which neighbor will move in with him. Pt states he does not know. Listened as Pt expresses frustration that he was placed as a DNR. Educated Pt on life sustaining treatments including risk factors and implications of CPR. Pt appears to have poor insight to his health conditions and his level of understanding is questionable. Ended visit to allow Pt to rest. Palliative Care will remain available.
--- NOTE | 2021-05-28 17:00 | NUR ---
SHIFT SUMMARY PT AOX4; CALLS APPROPRIATELY. PT IS 1-2 P ASSIST TO CHAIR. PT SEEN BY ST TODAY; [facility]. PT WANTED TO SPEAK SOMEONE IN PALLIATIVE CARE ABOUT [facility] GOAL AND DECISION MAKING. BED ALARM IS ON AND CALL LIGHT WITHIN REACH
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
--- NOTE | 2021-05-29 05:32 | NUR ---
SUMMARY: PT A/OX4, SPECIFIES NEEDS AND CALLS APPOPRIATELY FOR ASSIST PRN. BED ALARM REMAINS ON FOR FALL RISK R/T WEAKNESS FROM CVA. L.SIDE DEFICITS SEEM TO BE NEARLY RESOLVED W/STRENGTH IMPROVING BUT PT IS UP W/1PA AND FWW D/T PERSISTANT BLE WEAKNESS. GARBLE SPEECH OBSERVED BUT UNSURE IF THIS IS WORSE THAN BASELINE. HE DENIED HAVING ANY ISSUES SWALLOWING AND SEEMED UNAWARE OF DIET RESTRICTIONS BUT MEDS/SNACKS AND FLUIDS PROVIDED PER SPEECH TX ORDERS W/ ASP PREC'S MAINTAINED. HE USES URINAL INDEPENDENTLY AND REFUSED BOWEL MEDS THIS SHIFT. NO ACUTE CHANGES, VSS/AFEBRILE. WCTM AND REPORT TO DAY RN.
[2021-05-29] MEDS ORDERED: DILT180 PO (12:20)
[2021-05-29] MEDS ORDERED: XARELTO20 MG PO (12:21)
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
--- NOTE | 2021-05-29 17:33 | NUR ---
SHIFT SUMMARY PT HAD HOME O2 EVAL COMPLETED TODAY. SLEEP OXIMETRY ORDERED FOR TONIGHT. PT AGREEABLE TO STAY ANOTHER NIGHT FOR THE SLEEP STUDY. PT MEDICATED FOR PAIN ONCE THIS SHIFT FOR A HEADACHE. TYLENOL WAS ORDERED PER MD TO HELP WITH THIS. NO OTHER ACUTE CHANGES IN ASSESSMENT AT THIS TIME. VS REVIEWED. PHYSICAL THERAPY STILL RECOMMENDING SNF. PT REFUSING THIS AT THIS TIME. VS REVIEWED. PT SITTING ON SIDE OF BED. CALL LIGHT IN REACH.
--- NOTE | 2021-05-30 06:41 | NUR ---
Rn Summary: Patient is alert, different. Pt has rested on and off. He did c/o some rt sided chest pain this am. He points to right mid chest. States he has had this pain since admit. Pain 8/10. Tylenol given this am with some relief. Patient is on room air. Breath sounds are diminished. Pt had sleep study during the night but was very restless. Patient is able to call and express needs. Will continue to monitor.
--- NOTE | 2021-05-30 14:14 | NUR ---
PCP & CAREGIVING SUPPPORT INFO PT GAVE VERBAL PERMISSION TO TALK TO HIS FRIEND, NATACHA FLORES ABOUT HIS CARE. NATACHA SAYS SHE LIVED NEARBY AND OFTEN LOOKS AFTER THE PT AT HOME AND HELPS HIM WITH TRANSPORTATION. NATACHA IS INTERESTED IN BECOMING HIS CAREGIVER IF POSSIBLE AND IS REQUESTING INFORMATION ON HOW TO BECOME ONE FOR HIM. MESSAGE LEFT WITH DISCHARGE PLANNING TO FOLLOW UP ON THIS. NATACHA ALSO STATES THAT THE PT PREVIOUSLY WAS ESTABLISHED AT [facility] IN [place] AND MAY STILL HAVE A PCP. THIS MAY BE HELPFUL FOR HOME HEALTH. TINO #: [place]- [phone] [place]- [phone]
--- NOTE | 2021-05-30 18:12 | NUR ---
SHIFT SUMMARY PT STAYING ANOTHER NIGHT AFTER TALKING WITH DR. EATON THIS AM. CLARITIN STARTED FOR HIS RUNNY NOSE. MESSAGE LEFT FOR DC PLANNING ABOUT A FRIEND WHO IS WILLING TO BE A CAREGIVER FOR THE PT. NO OTHER ACUTE CHANGES IN ASSESSMENT AT THIS TIME. VS REVIEWED. PT DANGLING ON HIS BED. CALL LIGHT IN REACH.
--- NOTE | 2021-05-31 05:51 | NUR ---
SHIFT SUMMARY: 61 Y/O MALE RESTED COMFORTABLY ALL SHIFT; PT HAD MUCH DIFFICULTY AT TIMES STANDING, PIVOTING AND TRANSFERRING TO BSC WITH EQUILIBRUM VERY UNSTEADY (PT APPEARS TO BE DECONDITIONED AND NEEDS MORE PHYSICAL THERAPY AT THIS TIME); DENIES PAIN OR NAUSEA; BED ALARM APPLIED AND CALL LIGHT AT SIDE.
--- NOTE | 2021-05-31 14:40 | NUR ---
pt. is in bed relaxed he reports doing fine encouraged pt. nd offered prayers
--- NOTE | 2021-05-31 15:00 | NUR ---
DISCHARGE SUMMARY PT AxOx4 WITH INTERM CONFUSION/FORGETFULNESS. PT DISCHARGING TODAY TO HOME WITH HOME HEALTH REFERRAL. VITALS REVIEWED. PT DENIES ANY NEEDS/CONCERNS AT THIS TIME. DC INSTRUCTIONS DISCUSSED WITH PATIENT AND FRIEND INCLUDING DC MEDICATIONS, FOLLOW UP APPOINTMENTS AND HOME HEALTH INFORMATION. PT VERBALIZES UNDERSTANDING AND DENIES ANY FURTHER QUESTIONS. VITALS REVIEWED. PT SAFELY ESCORTED OUT VIA WC WITH FRIEND AND SPREADER BOX OPERATOR.
== END 2021-05-31 15:36 | disposition home health service (06) | DRG 871 ==
LOC: ER 10:32 → ICUE 13:06 → ERHOLD 13:06 → PCU 16:50 → ICUE 05-13 12:24 → PCU 05-22 19:44 → MEDS 05-27 12:56
PROVIDERS: Emergency Medicine; Family Medicine; Hospitalist; Internal Medicine; Internal Medicine Critical Care Medicine; Nurse Practitioner Acute Care; Student in an Organized Health Care Education/Training Program; ADMIT Internal Medicine
PROC: 5A09357 Assistance with Respiratory Ventilation, Less than 24 Consecutive Hours, Continuous Positive Airway Pressure (ICD-10-PCS; principal; 2021-05-11)
PROC: XW023U6 Introduction of COVID-19 Vaccine into Muscle, Percutaneous Approach, New Technology Group 6 (ICD-10-PCS; 2021-05-11)
DX: A41.9 Sepsis, unspecified organism (principal); J18.9 Pneumonia, unspecified organism; G92 Toxic encephalopathy; J96.21 Acute and chronic respiratory failure with hypoxia; J96.22 Acute and chronic respiratory failure with hypercapnia; E87.1 Hypo-osmolality and hyponatremia; Z66 Do not resuscitate; N17.9 Acute kidney failure, unspecified; I47.1 Supraventricular tachycardia; E87.0 Hyperosmolality and hypernatremia; R65.20 Severe sepsis without septic shock; F41.9 Anxiety disorder, unspecified; I48.91 Unspecified atrial fibrillation; R13.10 Dysphagia, unspecified; F99 Mental disorder, not otherwise specified; T42.4X5A Adverse effect of benzodiazepines, initial encounter; T43.595A Adverse effect of other antipsychotics and neuroleptics, initial encounter; I10 Essential (primary) hypertension; J43.9 Emphysema, unspecified; Z23 Encounter for immunization; K21.9 Gastro-esophageal reflux disease without esophagitis; F17.210 Nicotine dependence, cigarettes, uncomplicated; Z86.73 Personal history of transient ischemic attack (TIA), and cerebral infarction without residual deficits; Z88.8 Allergy status to other drugs, medicaments and biological substances; Z71.6 Tobacco abuse counseling; Z79.82 Long term (current) use of aspirin; Z79.899 Other long term (current) drug therapy; Z90.89 Acquired absence of other organs
CPT/HCPCS: 31720; 36415; 36600; 51703; 71045; 71250; 80048; 80053; 80069; 81001; 82803; 82947; 83605; 83735; 83880; 84100; 84145; 84443; 84484; 85025; 87040; 87070; 87077; 87086; 87186; 87205; 91303; 92526; 92610; 93005; 93010; 93970; 94640; 94644; 94645; 94660; 94664; 94667; 94668; 94760; 94761; 94762; 96365; 96375; 97110; 97116; 97129; 97162; 97166; 97530; 99285-25; A9270; C1751; C9113; J0360; J0456; J0696; J1630; J1650; J1940; J2060; J2920; J2930; J3010; J7030; J7050; J7512

== ENCOUNTER 2024-05-28 20:30 | Inpatient (IN) | payer MEDICARE, OTHER ==
[~2024-05-28] VITALS: Ht 170.2 cm; Wt 75.0 kg
[~2024-05-28 20:30] MED LIST changes: +BENADRYL25 MG PO; +DILT180 PO; +IPRAT-ALBUT 0.5-3 ML NEB; +Norco 5-325 Ta1 EACH PO; +XARELTO20 MG PO
[2024-05-28] MEDS ORDERED: Albuterol 2.5 MG/3 ML VIAL INH ONE (20:50)
[2024-05-28] MEDS ORDERED: NS 1,000 ML IV SCH ×3 (20:55→22:25)
[2024-05-28] MEDS ORDERED: Albuterol 2.5 MG/3 ML VIAL INH SCH (20:55)
[2024-05-28 20:58] LABS: Base Excess Venous -2.9 mmol/L; Bicarbonate Venous 22.1 mmol/L (24.0-30.0); PCO2 Venous 27 mmHg (38-42); pH Blood Venous 7.49 (7.34-7.37)
[2024-05-28 21:09] LABS: BASOPHILS ABSOLUTE AUTO 0.04 K/mm3 (0.00-0.23); BASOPHILS PERCENT AUTO 0 % (0-2); Hematocrit 20.8 % (37.0-53.0); IMMATURE GRAN PERCENT AUTO 1 % (0-1); MONOCYTES PERCENT AUTO 6 % (4-13); Mean Corpuscular HGB 17.1 pg (26.0-34.0); Mean Corpuscular HGB Conc 26.4 g/dL (31.5-36.5); Mean Corpuscular Volume 65 fL (80-100); Mean Platelet Volume 9.7 fL (9.1-12.4); NEUTROPHILS PERCENT AUTO 79 % (41-73); Platelet Count 411 K/mm3 (150-400); RDW Coefficient Variation 21.2 % (11.7-14.2); Red Blood Cell Count 3.21 M/mm3 (4.30-5.90); White Blood Cell Count 10.94 K/mm3 (4.00-11.30)
[2024-05-28 21:10] LABS: EOSINOPHILS ABSOLUTE AUTO 0.17 K/mm3 (0.00-0.68); EOSINOPHILS PERCENT AUTO 2 % (0-6); IMMATURE GRAN ABSOLUTE AUTO 0.09 K/mm3 (0.00-0.10); LYMPHOCYTES ABSOLUTE AUTO 1.36 K/mm3 (0.84-5.20); LYMPHOCYTES PERCENT AUTO 13 % (21-46); MONOCYTES ABSOLUTE AUTO 0.62 K/mm3 (0.16-1.47); NEUTROPHILS ABSOLUTE AUTO 8.51 K/mm3 (1.96-9.15); NRBC ABSOLUTE 0.04 K/mm3 (0.00-0.02); NRBC Auto 0.4 /100 WBC (0.0-0.2)
[2024-05-28 21:18] LABS: Hemoglobin 5.5 g/dL (13.5-17.5)
[2024-05-28] MEDS ORDERED: CefTRIAXone Sodium 1,000 MG in NS 50 ML IV ONE (21:20)
[2024-05-28 21:35] LABS: Albumin, Blood 3.4 g/dL (3.4-5.0); Albumin/Globulin Ratio 0.9 (0.8-1.8); Bilirubin, Total 1.1 mg/dL (0.1-1.0); Bun/Creatinine Ratio 12.3 (12.0-20.0); Creatinine, Blood 5.77 mg/dL (0.60-1.20); Globulin, Blood 3.8 g/dL (2.2-4.0); Potassium, Blood 2.7 mmol/L (3.5-5.5); Total Protein, Blood 7.2 g/dL (6.4-8.2)
[2024-05-28] MEDS ORDERED: NS 1,000 ML IV ONE (22:45)
[2024-05-28] MEDS ORDERED: Ondansetron HCl 2 MG / ML 2ML Vial IV PRN (22:45)
[2024-05-28] MEDS ORDERED: Pantoprazole Sodium 40 MG Injection IV SCH (22:51)
[2024-05-28 22:52] LABS: Magnesium, Blood 2.1 mg/dL (1.6-2.4)
[2024-05-28] MEDS ORDERED: Potassium Chl 20MEQ/Water100ML 100 ML IV STA (22:52)
[2024-05-28] MEDS ORDERED: Azithromycin 500 MG in NS 250 ML IV SCH (22:57)
[2024-05-28 23:05] LABS: RETICULOCYTE ABSOLUTE 0.1021 M/mm3 (0.0200-0.1100); RETICULOCYTE COUNT PERCENT 3.21 % (0.50-2.50)
[2024-05-28 23:18] LABS: Percent Saturation 2.9 % (20.0-50.0)
[2024-05-28 23:29] LABS: Hemoglobin 7.9 g/dL (13.5-17.5)
[2024-05-28] MEDS ORDERED: NS 250 ML IV PRN (23:55)
[2024-05-29] VITALS (14 sets, daily range): BP systolic 90–115; BP diastolic 59–73
[2024-05-29 00:11] LABS: Influenza A, PCR NEGATIVE (NEGATIVE); Influenza B, PCR NEGATIVE (NEGATIVE); Resp Syncytial Virus, PCR NEGATIVE (NEGATIVE); SARS-Cov-2 (COVID-19) PCR, MMC NEGATIVE (NEGATIVE)
--- NOTE | 2024-05-29 01:35 | NUR ---
RECEIVED PATIENT FROM ER IN MINIMAL DISTRESS. PATIENT AWAKE ALERT, ABLE TO STAND SLOWLY AND TRANSFER TO BED WITH MINIMAL SUPPORT. PATIENT VERY THIN AT PRESENT TIME. KCL BOLUS STARTED AND ADMISSION PACKET COMPLETED. MEDICATIONS VERIFIED WITH PATIENT.
[2024-05-29] MEDS ORDERED: Albuterol 2.5 MG/3 ML VIAL INH SCH (01:45)
[2024-05-29] MEDS ORDERED: Mometasone/Formoterol MDI 200/5 mcg 13 GM INH SCH (01:45)
[2024-05-29] MEDS ORDERED: Ipratropium/Albuterol SulF 2.5-0.5MG/3 ML Amp INH ONE (01:45)
[2024-05-29] MEDS ORDERED: Albuterol 2.5 MG/3 ML VIAL INH PRN (01:45)
[2024-05-29 03:02] LABS: U Amphetamine Screen Not Detected; U Barbituate Screen Not Detected; U Benzodiazapine Screen Not Detected; U Cannabinoids Screen DETECTED; U Cocaine Screen Not Detected; U Methadone Screen Not Detected; U Methamphetamine Screen Not Detected
[2024-05-29 03:03] LABS: U Buprenorphine Screen Not Detected; U Opiates Screen Not Detected; U Oxycodone Screen Not Detected; U Phencyclidine Screen Not Detected
[2024-05-29 03:33] LABS: BASOPHILS ABSOLUTE AUTO 0.01 K/mm3 (0.00-0.23); BASOPHILS PERCENT AUTO 0 % (0-2); EOSINOPHILS PERCENT AUTO 0 % (0-6); Hematocrit 26.6 % (37.0-53.0); Hemoglobin 7.6 g/dL (13.5-17.5); IMMATURE GRAN ABSOLUTE AUTO 0.15 K/mm3 (0.00-0.10); IMMATURE GRAN PERCENT AUTO 2 % (0-1); LYMPHOCYTES ABSOLUTE AUTO 0.18 K/mm3 (0.84-5.20); LYMPHOCYTES PERCENT AUTO 2 % (21-46); MONOCYTES ABSOLUTE AUTO 0.03 K/mm3 (0.16-1.47); MONOCYTES PERCENT AUTO 0 % (4-13); Mean Corpuscular HGB 19.8 pg (26.0-34.0); Mean Corpuscular HGB Conc 28.6 g/dL (31.5-36.5); Mean Platelet Volume 9.5 fL (9.1-12.4); NEUTROPHILS ABSOLUTE AUTO 9.08 K/mm3 (1.96-9.15); NEUTROPHILS PERCENT AUTO 96 % (41-73); NRBC ABSOLUTE 0.03 K/mm3 (0.00-0.02); NRBC Auto 0.3 /100 WBC (0.0-0.2); Platelet Count 327 K/mm3 (150-400); RDW Coefficient Variation 22.9 % (11.7-14.2); RDW Standard Deviation 56.5 fL (35.1-46.3); Red Blood Cell Count 3.83 M/mm3 (4.30-5.90); White Blood Cell Count 9.45 K/mm3 (4.00-11.30)
[2024-05-29 03:34] LABS: Mean Corpuscular Volume 70 fL (80-100)
[2024-05-29 03:43] LABS: Albumin, Blood 3.2 g/dL (3.4-5.0); Albumin/Globulin Ratio 0.8 (0.8-1.8); Bilirubin, Total 2.3 mg/dL (0.1-1.0); Bun/Creatinine Ratio 13.1 (12.0-20.0); Calcium, Blood 8.2 mg/dL (8.5-10.1); Creatinine, Blood 4.96 mg/dL (0.60-1.20); Globulin, Blood 3.8 g/dL (2.2-4.0); Potassium, Blood 3.4 mmol/L (3.5-5.5)
[2024-05-29] MEDS ORDERED: Ipratropium/Albuterol SulF 2.5-0.5MG/3 ML Amp INH PRN (06:25)
[2024-05-29] MEDS ORDERED: Potassium Chl 20MEQ/Water100ML 100 ML IV ONE (06:45)
--- NOTE | 2024-05-29 07:00 | NUR ---
ASSUME CARE: I have assumed care of this patient.
--- NOTE | 2024-05-29 08:09 | NUR ---
PROVIDER PHONE CALL: Dr Mtz notified of pt's reports of pain at IV site with KCL. RN instructed to stop potassium replacement. See new nephro consult.
[2024-05-29 08:26] LABS: International Normalized Ratio 1.3; Prothrombin Time Results 13.6 Sec (9.7-11.5)
[2024-05-29] MEDS ORDERED: Heparin Sodium,Porcine/0.5 NS 500 ML IV SCH (08:35)
[2024-05-29] MEDS ORDERED: MethylPREDNISolone Sod Succ 125 MG Vial IV SCH (09:00)
[2024-05-29] MEDS ORDERED: BusPIRone HCl 5 MG Tab PO SCH (09:00)
[2024-05-29] MEDS ORDERED: Lactobacil 2-S.Thermo-Bifido 1 1 Cap PO SCH (09:00)
[2024-05-29 11:34] LABS: Hematocrit 25.1 % (37.0-53.0); Hemoglobin 7.2 g/dL (13.5-17.5)
[2024-05-29] MEDS ORDERED: LOSA25 PO (12:23)
[2024-05-29] MEDS ORDERED: HYDCHL25 PO (12:25)
--- NOTE | 2024-05-29 12:40 | NUR ---
PROVIDER UPDATE: H & H results discussed with Dr Mtz. Will draw H&H at 1400.
[2024-05-29 14:42] LABS: Hemoglobin 7.3 g/dL (13.5-17.5)
[2024-05-29] MEDS ORDERED: Midodrine 5 MG Tab PO SCH (18:00)
--- NOTE | 2024-05-29 18:52 | NUR ---
SHIFT SUMMARY: Pt changed to PCU status this morning. H & H continues to trend down; This was discussed with provider and labs ordered Q6. Akhil has been plesant and cooperative throughout the shift. Echo and renal ultrasound completed this morning. He was placed on a fluid restriction of 1800 mls/day. Midodrine started. Pt is taking good PO intake and requesting additional snacks. Frequent small urine voids. He initially declined bedbath but requested one after he stooled in bed. RN found dried stool on pt's buttocks.
[2024-05-29 18:55] LABS: Source, Urine Foley catheter
[2024-05-29 18:58] LABS: Appearance, Urine Clear (Clear); Bilirubin, Urine Neg (Neg); Blood, Urine Neg (Neg); Color, Urine Yellow (P-Yellow); Glucose Qualitative, Urine Neg (Neg); Ketones, Urine Neg (Neg); Leukocyte Esterase, Urine Neg (Neg); Nitrite, Urine Neg (Neg); Protein, Urine Neg (Neg); Urobilinogen, Urine NORM (Normal)
[2024-05-29] MEDS ORDERED: NS 250 ML IV PRN (20:25)
[2024-05-29] MEDS ORDERED: CefTRIAXone Sodium 1,000 MG in NS 100 ML IV SCH (21:00)
[2024-05-29 21:16] LABS: Hematocrit 24.7 % (37.0-53.0); Hemoglobin 6.9 g/dL (13.5-17.5)
[2024-05-29] MEDS ORDERED: NS 500 ML IV SCH (22:40)
[2024-05-30] VITALS (8 sets, daily range): BP systolic 107–130; BP diastolic 69–101
[2024-05-30 03:33] LABS: BASOPHILS ABSOLUTE AUTO 0.01 K/mm3 (0.00-0.23); BASOPHILS PERCENT AUTO 0 % (0-2); EOSINOPHILS PERCENT AUTO 0 % (0-6); Hematocrit 27.1 % (37.0-53.0); Hemoglobin 7.8 g/dL (13.5-17.5); IMMATURE GRAN PERCENT AUTO 2 % (0-1); LYMPHOCYTES PERCENT AUTO 2 % (21-46); MONOCYTES ABSOLUTE AUTO 0.25 K/mm3 (0.16-1.47); MONOCYTES PERCENT AUTO 2 % (4-13); Mean Corpuscular HGB 21.1 pg (26.0-34.0); Mean Corpuscular HGB Conc 28.8 g/dL (31.5-36.5); Mean Corpuscular Volume 73 fL (80-100); Mean Platelet Volume 9.6 fL (9.1-12.4); NEUTROPHILS ABSOLUTE AUTO 12.23 K/mm3 (1.96-9.15); NEUTROPHILS PERCENT AUTO 94 % (41-73); NRBC ABSOLUTE 0.08 K/mm3 (0.00-0.02); NRBC Auto 0.6 /100 WBC (0.0-0.2); Platelet Count 264 K/mm3 (150-400); RDW Coefficient Variation 23.8 % (11.7-14.2); RDW Standard Deviation 62.3 fL (35.1-46.3); White Blood Cell Count 12.99 K/mm3 (4.00-11.30)
[2024-05-30 04:01] LABS: Albumin, Blood 3.2 g/dL (3.4-5.0); Albumin/Globulin Ratio 0.9 (0.8-1.8); Bilirubin, Total 0.9 mg/dL (0.1-1.0); Bun/Creatinine Ratio 19.8 (12.0-20.0); Calcium, Blood 7.6 mg/dL (8.5-10.1); Creatinine, Blood 3.28 mg/dL (0.60-1.20); Globulin, Blood 3.6 g/dL (2.2-4.0); Magnesium, Blood 1.8 mg/dL (1.6-2.4); Percent Saturation 11.9 % (20.0-50.0); Total Protein, Blood 6.8 g/dL (6.4-8.2); Uric Acid, Blood 11.9 mg/dL (3.5-7.2)
[2024-05-30] MEDS ORDERED: Potassium Chloride 10 Meq Tablet SA PO ONE (05:05)
--- NOTE | 2024-05-30 05:45 | NUR ---
PATIENT IS ALERT. PATIENT HAS BEEN NEURO INTACT. A-FIB ON THE MONITOR. PATIENT DID GET 1 UNIT PRBC OVER NIGHT GOR HEMOGLOBIN OF 6.9, RECHECK WAS 7.8. BP HAS BEEN STABLE. HEPARIN RUNNING AT 14 PATIETN HAS BEEN ON ROOM AIR OVERNIGHT. NO BM OVERNIGHT. VOIDING VIA URINAL.
[2024-05-30] MEDS ORDERED: Potassium Phosphate Dibasic 20 MM in Dextrose 5% 500 ML IV ONE (05:50)
--- NOTE | 2024-05-30 07:00 | NUR ---
ASSUME CARE: I have assumed care of this patient.
--- NOTE | 2024-05-30 08:30 | NUR ---
ARRIVAL TO PCU 17 PT ARRIVED TO PCU17 AT APPOXIMATELY 0820. PT TRANSFERED VIA ICU BED, SLID OVER TO PCU BED BY 4 CLINICAL STAFF MEMBERS. PT A&Ox4, COMMUNICATES NEEDS APPROPRIATELY, ORIENTED TO CALL LIGHT/UNIT. BP STABLE, AFIB/SINUS TACH 80-110's, DENIES CP/PRESSURE. SpO2> 92% RA, REPORTS SOB WITH ACTIVITY AND AUDIBLE WHEEZES AT TIMES, PRN NEBS. CONTINENT OF URINE AND BOWEL. DENIES PAIN. BED IN LOWEST POSITION, CALL LIGHT IN REACH.
[2024-05-30] MEDS ORDERED: Sod Ferric Gluc Complx/Sucrose 125 MG in NS 100 ML IV SCH (09:00)
[2024-05-30 10:04] LABS: Hematocrit 26.7 % (37.0-53.0); Hemoglobin 7.7 g/dL (13.5-17.5)
[2024-05-30] MEDS ORDERED: Dose Adjust by Pharmacy XX STA (10:25)
[2024-05-30 12:17] LABS: Hematocrit 28.8 % (37.0-53.0); Hemoglobin 8.2 g/dL (13.5-17.5)
[2024-05-30 16:44] LABS: Hematocrit 29.8 % (37.0-53.0); Hemoglobin 8.4 g/dL (13.5-17.5)
[2024-05-30] MEDS ORDERED: Potassium Chloride 20 MEQ TabCR PO ONE (17:15)
--- NOTE | 2024-05-30 18:49 | NUR ---
SHIFT SUMMARY SEE PREVIOUS NOTE. PT A&Ox4, CALLS AND COMMUNICATES NEEDS APPROPRIATELY. BP STABLE, AFIB/SINUS TACH 80-110's, DENIES CP/PRESSURE. SpO2> 92% RA, REPORTS SOB WITH ACTIVITY AND AUDIBLE WHEEZES AT TIMES, PRN NEBS. CONTINENT OF URINE AND BOWEL. aPTT CRITICALLY HIGH, SPOKE WITH PHARMACY, ORDERED RE-DRAW AND INSTRUCTED TO HOLD HEPARIN UNTIL RE-DRAW RESULTS. NO OTHER EVENTS, WILL REPOR TO ONCOMING RN.
[2024-05-30 19:14] LABS: Hematocrit 29.4 % (37.0-53.0); Hemoglobin 8.4 g/dL (13.5-17.5)
[2024-05-30] MEDS ORDERED: Potassium Phosphate Dibasic 20 MM in NS 500 ML IV SCH (20:30)
[2024-05-31 00:24] VITALS: BP 124/79
[2024-05-31 01:53] LABS: BASOPHILS ABSOLUTE AUTO 0.02 K/mm3 (0.00-0.23); BASOPHILS PERCENT AUTO 0 % (0-2); EOSINOPHILS PERCENT AUTO 0 % (0-6); Hematocrit 27.1 % (37.0-53.0); Hemoglobin 7.8 g/dL (13.5-17.5); IMMATURE GRAN ABSOLUTE AUTO 0.23 K/mm3 (0.00-0.10); IMMATURE GRAN PERCENT AUTO 1 % (0-1); LYMPHOCYTES ABSOLUTE AUTO 0.55 K/mm3 (0.84-5.20); LYMPHOCYTES PERCENT AUTO 3 % (21-46); MONOCYTES ABSOLUTE AUTO 0.65 K/mm3 (0.16-1.47); MONOCYTES PERCENT AUTO 4 % (4-13); Mean Corpuscular HGB 21.1 pg (26.0-34.0); Mean Corpuscular HGB Conc 28.8 g/dL (31.5-36.5); Mean Corpuscular Volume 73 fL (80-100); NEUTROPHILS ABSOLUTE AUTO 14.52 K/mm3 (1.96-9.15); NEUTROPHILS PERCENT AUTO 91 % (41-73); NRBC ABSOLUTE 0.06 K/mm3 (0.00-0.02); NRBC Auto 0.4 /100 WBC (0.0-0.2); Platelet Count 281 K/mm3 (150-400); RDW Coefficient Variation 23.9 % (11.7-14.2); RDW Standard Deviation 61.5 fL (35.1-46.3); Red Blood Cell Count 3.69 M/mm3 (4.30-5.90); White Blood Cell Count 15.97 K/mm3 (4.00-11.30)
[2024-05-31 02:17] LABS: Albumin, Blood 3.3 g/dL (3.4-5.0); Anion Gap 12 mmol/L (3-11); Blood Urea Nitrogen 57 mg/dL (8-24); Bun/Creatinine Ratio 26.3 (12.0-20.0); CO2, Blood 21 mmol/L (21-32); Calcium, Blood 7.1 mg/dL (8.5-10.1); Chloride, Blood 111 mmol/L (98-108); Creatinine, Blood 2.17 mg/dL (0.60-1.20); Glomerular Filtration Rate 33 (60-); Glucose, Blood 123 mg/dL (70-99); Magnesium, Blood 1.8 mg/dL (1.6-2.4); Phosphorus, Blood 3.9 mg/dL (2.5-4.9); Potassium, Blood 3.4 mmol/L (3.5-5.5); Sodium, Blood 141 mmol/L (136-145)
[2024-05-31] MEDS ORDERED: Dose Adjust by Pharmacy XX STA (02:26)
[2024-05-31 03:30] VITALS: BP 134/91
--- NOTE | 2024-05-31 04:37 | NUR ---
SHIFT SUMMARY THIS RN ASSUMED CARE OF PATIENT AT 1900. PT A&O X4. ABLE TO MAKE NEEDS KNOWN. PAROXYSMAL AFIB NOTED ON MONITOR WITH HR 80-100'S. BP STABLE. ON RA WITH SPO2 >92%. PRN NEBS. PT WITH AUDIBLE WHEEZING WITH EXERTION. STOOL SAMPLE SENT DURING THIS SHIFT. HEP GTT INFUSING PER EMAR. K PHOS INFUSED PER EMAR. PT ABLE TO REPOSITION SELF INDEPENDENTLY IN BED. BED IN LOWEST POSITION AND CALL LIGHT WITHIN REACH. THIS RN WILL REPORT TO ONCOMING DAYSHIFT RN.
[2024-05-31 07:23] VITALS: BP 113/86
[2024-05-31] MEDS ORDERED: Potassium Chloride 20 MEQ TabCR PO ONE (08:30)
[2024-05-31 11:50] VITALS: BP 116/68
[2024-05-31 11:57] LABS: Stool Occult Blood Guaiac 1 Pos (Neg)
[2024-05-31 15:17] VITALS: BP 129/79
--- NOTE | 2024-05-31 15:49 | NUR ---
TRANSFER TO MEDICAL PT HAS REMAINED AWAKE, ALERT, AND ORIENTED THIS SHIFT. VITAL SIGNS STABLE. PT ON ROOM AIR. NO SIGNS OF GI BLEEDING NOTED. PT USES URINAL TO VOID INDEPENDENTLY. HEPARIN GTT DC'D THIS AFTERNOON. REPORT CALLED, ALL QUESTIONS ANSWERED. PT TAKEN TO ROOM 309 VIA BED. ALL PT BELONGINGS AND MEDS SENT WITH PT.
[2024-05-31] MEDS ORDERED: Pantoprazole Sodium 40 MG Injection IV SCH (16:30)
--- NOTE | 2024-05-31 17:58 | NUR ---
SHIFT SUMMARY NEW ADMIT AT 1540. PATIENT A/OX3, ABLE TO MAKE NEEDS KNOWN. 1 PERSON ASSIST FOR TRANSFERS. SKIN CHECK COMPLETED WITH DEANGELO RN, NO CONCERNS. PATIENT WITH AUDIBLE EXPIRATORY WHEEZES THROUGHOUT. PATIENT ON ROOM AIR, SPO2 WNL. POSITIVE GUIAC, WITH NO BM SINCE TRANSFER TO ROOM 309. NO OTHER CONCERNS AT THIS TIME.
[2024-05-31 18:12] LABS: Hematocrit 29.9 % (37.0-53.0); Hemoglobin 8.5 g/dL (13.5-17.5)
[2024-05-31 20:00] VITALS: BP 121/87
[2024-06-01 04:14] VITALS: BP 114/77
[2024-06-01 05:56] LABS: BASOPHILS ABSOLUTE AUTO 0.03 K/mm3 (0.00-0.23); BASOPHILS PERCENT AUTO 0 % (0-2); EOSINOPHILS ABSOLUTE AUTO 0.09 K/mm3 (0.00-0.68); EOSINOPHILS PERCENT AUTO 1 % (0-6); Hematocrit 31.1 % (37.0-53.0); Hemoglobin 8.8 g/dL (13.5-17.5); IMMATURE GRAN ABSOLUTE AUTO 0.57 K/mm3 (0.00-0.10); IMMATURE GRAN PERCENT AUTO 4 % (0-1); LYMPHOCYTES ABSOLUTE AUTO 1.92 K/mm3 (0.84-5.20); LYMPHOCYTES PERCENT AUTO 14 % (21-46); MONOCYTES ABSOLUTE AUTO 0.83 K/mm3 (0.16-1.47); MONOCYTES PERCENT AUTO 6 % (4-13); Mean Corpuscular HGB 21.2 pg (26.0-34.0); Mean Corpuscular HGB Conc 28.3 g/dL (31.5-36.5); Mean Corpuscular Volume 75 fL (80-100); Mean Platelet Volume 9.6 fL (9.1-12.4); NEUTROPHILS ABSOLUTE AUTO 10.03 K/mm3 (1.96-9.15); NEUTROPHILS PERCENT AUTO 74 % (41-73); NRBC ABSOLUTE 0.05 K/mm3 (0.00-0.02); NRBC Auto 0.4 /100 WBC (0.0-0.2); Platelet Count 294 K/mm3 (150-400); RDW Coefficient Variation 25.3 % (11.7-14.2); RDW Standard Deviation 64.5 fL (35.1-46.3); Red Blood Cell Count 4.16 M/mm3 (4.30-5.90); White Blood Cell Count 13.47 K/mm3 (4.00-11.30)
[2024-06-01 06:21] LABS: Albumin, Blood 3.3 g/dL (3.4-5.0); Anion Gap 11 mmol/L (3-11); Blood Urea Nitrogen 37 mg/dL (8-24); Bun/Creatinine Ratio 22.4 (12.0-20.0); CO2, Blood 23 mmol/L (21-32); Calcium, Blood 7.2 mg/dL (8.5-10.1); Chloride, Blood 111 mmol/L (98-108); Creatinine, Blood 1.65 mg/dL (0.60-1.20); Glomerular Filtration Rate 46 (60-); Glucose, Blood 90 mg/dL (70-99); Phosphorus, Blood 2.5 mg/dL (2.5-4.9); Sodium, Blood 142 mmol/L (136-145)
--- NOTE | 2024-06-01 06:49 | NUR ---
END OF SHIFT SUMMARY PT A&OX4, COOPERATIVE BUT CAN BE IRRITABLE AT TIMES. SOB ON EXERTION BUT SATS MAINTAINING >92 ON RA. CONTINUES TO HAVE EXP WHEEZING ALL LOBES. PT VOIDING FREQUENTLY AND HAD ONE LARGE BM THIS SHIFT. UP TO BSC WITH SBA. SR ON TELE. NO NEW EVENTS OVERNIGHT.
[2024-06-01 07:54] VITALS: BP 114/78
[2024-06-01] MEDS ORDERED: Potassium Chloride 20 MEQ TabCR PO ONE (08:10)
[2024-06-01 16:11] VITALS: BP 120/80
[2024-06-01 19:35] VITALS: BP 115/83
--- NOTE | 2024-06-01 19:52 | NUR ---
DAY SHIFT SUMMARY: A&Ox4. PLEASANT AND COOPERATIVE WITH CARE. CALLS APPROPRIATELY AND IS ABLE TO ADVOCATE NEEDS EFFECTIVELY. BM x2 TODAY; ONE OF INCONTINENT. CLEANED AND GIVEN BED BATH; REFUSED SHOWER. CLEANED BENEATH NAILS OF RIGHT HAND; DECLIEND SECOND. NO ACUTE CONCERNS THROUGHOUT THE DAY. BED IN LOWEST POSITION. CALL LIGHT WITHIN REACH. ALL NEEDS MET. REPORT TO ONCOMING RN.
[2024-06-02 02:29] VITALS: BP 108/76
--- NOTE | 2024-06-02 04:10 | NUR ---
SHIFT SUMMARY ADMITTED FOR COPD/PNEUMONIA. FULL CODE. PLAN IS FOR SCOPE TODAY. DR. MIRANDA IS CONSULT. 1800 ML FLUID RESTRICTION. TELEMETRY: AFIB @ 86 BPM. IV ANTIB RX ARE SCHEDULED. MELENA REPORTED ON PREVIOUS SHIFTS. ON RA. CARDIAC DIET. ORDER RECEIVED FOR PT TO BE NPO @ BREAKFAST. 1 ASSIST PIVOT TO BSC. I DID FIND HX OF A RECTAL HEMORRHAGE IN 2018, BUT I COULD GAIN NO FURTHER INFO REGARDING THIS. HE DOES SEEM ANXIOUS REGARDING THE PLANNED SCOPE TODAY.
[2024-06-02 05:16] LABS: Hematocrit 29.8 % (37.0-53.0); Hemoglobin 8.6 g/dL (13.5-17.5); Mean Corpuscular HGB 21.6 pg (26.0-34.0); Mean Corpuscular HGB Conc 28.9 g/dL (31.5-36.5); Mean Corpuscular Volume 75 fL (80-100); Mean Platelet Volume 9.9 fL (9.1-12.4); NRBC ABSOLUTE 0.03 K/mm3 (0.00-0.02); NRBC Auto 0.3 /100 WBC (0.0-0.2); Platelet Count 267 K/mm3 (150-400); RDW Coefficient Variation 26.5 % (11.7-14.2); RDW Standard Deviation 66.5 fL (35.1-46.3); Red Blood Cell Count 3.99 M/mm3 (4.30-5.90); White Blood Cell Count 9.95 K/mm3 (4.00-11.30)
[2024-06-02 05:44] LABS: BAND PERCENT MAN 3 % (0-8); BASOPHILS PERCENT MAN 0 % (0-2); EOSINOPHILS ABSOLUTE MAN 0.19 K/mm3 (0.00-0.68); EOSINOPHILS PERCENT MAN 2 % (0-6); LYMPHOCYTES ABSOLUTE MAN 1.39 K/mm3 (0.84-5.20); LYMPHOCYTES PERCENT MAN 14 % (21-46); METAMYELOCYTE ABSOLUTE MAN 0.09 K/mm3 (0.00-0.00); METAMYELOCYTE PERCENT MAN 1 % (0-0); MONOCYTES ABSOLUTE MAN 0.69 K/mm3 (0.16-1.47); MONOCYTES PERCENT MAN 7 % (4-13); NEUTROPHILS ABSOLUTE MAN 7.56 K/mm3 (1.96-9.15); SEG NEUTROPHILS PERCENT MAN 73 % (41-73); TOTAL CELLS COUNTED 100
[2024-06-02 05:55] LABS: Albumin, Blood 3.1 g/dL (3.4-5.0); Anion Gap 10 mmol/L (3-11); Blood Urea Nitrogen 24 mg/dL (8-24); Bun/Creatinine Ratio 19.8 (12.0-20.0); CO2, Blood 25 mmol/L (21-32); Chloride, Blood 109 mmol/L (98-108); Creatinine, Blood 1.21 mg/dL (0.60-1.20); Glomerular Filtration Rate 66 (60-); Glucose, Blood 92 mg/dL (70-99); Phosphorus, Blood 2.2 mg/dL (2.5-4.9); Sodium, Blood 141 mmol/L (136-145)
[2024-06-02 07:30] VITALS: BP 132/90
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
--- NOTE | 2024-06-02 09:06 | NUR ---
PATIENT TO IMAGING FOR STRESS TEST
[2024-06-02] MEDS ORDERED: Potassium Phosphate Dibasic 30 MM in Dextrose 5% 500 ML IV STA (09:55)
--- NOTE | 2024-06-02 10:22 | NUR ---
DR. MIRANDA TO BEDSIDE TO DISCUSS REFUSAL OF EGD. PATIENT ADAMATE HE DOES NOT WANT PROCEDURE. DR. MIRANDA PARQ. PT CONTINUES TO DECLINE. PROCEDURE TO BE CANCELED.
[2024-06-02] MEDS ORDERED: Regadenoson 0.4 MG/5 ML SYRINGE ONE (11:18)
[2024-06-02] MEDS ORDERED: Aminophylline 250MG / 10ML 10 ML Vial ONE (11:18)
--- NOTE | 2024-06-02 12:58 | NUR ---
STRESS TEST CANCELLED. PT FOUND TO HAVE EXPIRATORY WHEEZES AND TRIPODING UNABLE TO SIT BACK. DR BAUGH NOTIFIED AND TOLD TO CONSULT THE HOSPITALIST. DR CHATTERJEE NOTIFIED AND ORDERED BREATHING TREATMENT. AFTER BREATHING TREATMENT PT DID NOT APPEAR BETTER. WHEEZES CONTINUED TO BE AUDIBLE AND FOUND IN ALL LUNG GOMES AND PT CONTINUED TO REPORT THAT THEY WERE UNABLE TO SIT BACK IN BED DESPITE PT REPORTING THAT HE HAD NO COMPLAINTS. PT STS THIS IS HIS BASELINE PRESENTATION. O2 SAT 95% ON ROOM AIR POST BREATHING TREATMENT. DR CHATTERJEE STATED SHE WAS OK W/ THE DECISION TO CANCEL TEST. DR BAUGH NOTIFIED OF DECSISION AND AGREED WELL. DR BAUGH HAS SINCE GONE AND SEEN PT.
[2024-06-02 14:43] VITALS: BP 108/67
[2024-06-02] MEDS ORDERED: MethylPREDNISolone Sod Succ 125 MG Vial IV SCH (16:00)
--- NOTE | 2024-06-02 16:11 | NUR ---
IV LEFT WRIST LEAKING, POSITIONAL AND PAINFUL. DC'D AND PLACED NEW 20G IN RIGHT FOREARM.
--- NOTE | 2024-06-02 19:00 | NUR ---
DAY SHIFT SUMMARY: A&Ox2-3. UTILIZES CALL LIGHT AND IS ABLE TO ADVOCATE NEEDS. URINAL AND 1PA STAND/PIVOT TO BSC FOR ELIMINATION. BEDREST, OTHERWISE. MEDS WHOLE WITH FLUIDS. TELE SINUS TACH. 1800mL FLUID RESTRICTION OF WHICH HE IS NOT COMPLIANT. DECLINED TO HAVE EGD DONE TODAY, STATING HE KNEW SOMEONE WHO HAD HAD THAT DONE AND THEY "POPPED HER LUNG". NO MELENA NOTED OR REPORTED TODAY. DID AGREE TO NUCLEAR STRESS TEST BUT WAS UNABLE TO TOLERATE LYING FLAT FOR THE PROCEDURE SO TEST WAS CEASED AND CARDIOLOGY CONSULTED. IV LEFT ARM BAD; NEW PLACED IN RIGHT ARM. BED IN LOWEST POSITION. CALL LIGHT WITHIN REACH. ALL NEEDS MET. REPORT TO ONCOMING RN.
[2024-06-02 19:15] VITALS: BP 120/84
[2024-06-02] MEDS ORDERED: LORazepam 0.5 MG Tab PO PRN (23:45)
[2024-06-03 01:08] LABS: Base Excess Venous -6.4 mmol/L; Bicarbonate Venous 19.9 mmol/L (24.0-30.0); PCO2 Venous 30.9 mmHg (38-42); pH Blood Venous 7.39 (7.34-7.37)
[2024-06-03 01:28] LABS: Albumin, Blood 3.3 g/dL (3.4-5.0); Anion Gap 14 mmol/L (3-11); Blood Urea Nitrogen 30 mg/dL (8-24); CO2, Blood 21 mmol/L (21-32); Calcium, Blood 7.1 mg/dL (8.5-10.1); Chloride, Blood 106 mmol/L (98-108); Glomerular Filtration Rate 51 (60-); Glucose, Blood 210 mg/dL (70-99); Phosphorus, Blood 3.4 mg/dL (2.5-4.9); Potassium, Blood 4.4 mmol/L (3.5-5.5); Sodium, Blood 137 mmol/L (136-145)
--- NOTE | 2024-06-03 01:30 | NUR ---
PT BECAME VERY SOB FOLLOWING NEB TX AND UPON EXERTING TO USE URINAL AT EOB. HE DEVELOPED LABORED, GRUNTING RESPS, HAD RR HIGH 40'S, HR SUSTAINING 140'S-160, BECAME DUSKY IN COLOR AND WAS DIAPHORETIC W/HIGH ANXIETY. TRACHEAL WHEEZE HEARD BUT SPO2 MAINTAINED >92%. PT SEEMED TO HAVE DIFFICULTY RECOVERING SO WAS NOTIFIED. ATIVAN 0.5MG PO BID PRN (X4 DOSES) WAS RX'D W/1ST DOSE RECEIVED. AND MISSED AM DOSE OF BUSPAR WAS ALSO PROVIDED AT THIS TIME. SOME IMPROVMENT WAS NOTED BUT RR REMAINED 20'S W/HR SUSTAINING 120'S. WAS ALERTED TO EVENT AND INTERVENTIONS AND A STAT CXR AND VBG WERE COMPLETED. RESULTS WERE RELAYED AND HE CONVEYED POSSIBLE WORSENING R.SIDE PNM. HE APPROVED ADDITIONAL DOSE ATIVAN 0.5MG PO X1 BE GIVEN FOR ONGOING SYPMTOMS PRN BUT PT EVENTUALLY SETTLED AND RESP STATUS IMPROVED W/O NEED FOR FURTHER MEDICATION. HE'S NOW SLEEPING W/O S/S RESP DISTRESS AND HR IS 80'S-90'S BPM W/SPO2 97% ON RA.
[2024-06-03 02:33] VITALS: BP 120/76
--- NOTE | 2024-06-03 04:21 | NUR ---
SUMMARY: PT A/OX3, SPECIFIES NEEDS AND IS COOPERATIVE W/CARE. HE HAD AN EPISODE OF ACUTE RESP DISTRESS W/ANXIETY AND TACHYCARDIA FOLLING NEB TX/URINAL USE, SEE PRIOR NOTE FOR THOSE DETAILS. PRN ATIVAN WAS RECEIVED AND STAT CXR AND VBG WERE COMPLETED. PT EVENTUALLY RECOVERED AND WAS ABLE TO SLEEP LYING JUST SLIGHTLY ELEVATED IN BED. 1800ML FR MAINTAINED, KPHOS PIGGYBACK WAS GIVEN AND IV ABX WERE RECEIVED. NEW ORDERS ALSO WERE PROVIDED TO COMMENCE PO K-DUR AND K-PHOS TODAY. HE USES URINAL AD JAVAD BUT WAS INCONTINENT OF STOOL W/NO MELENA OBSERVED. BEDBATH WAS COMPLETED AND ATTENDS/LINEN CHANGED. HE'S NSR-S.TACH ON TELE AT 90'S-100'S BPM. NO ACUTE CHANGES, VSS/AFEBRILE. WCTM AND REPORT TO DAY RN.
[2024-06-03 07:30] VITALS: BP 118/90
[2024-06-03] MEDS ORDERED: Potassium Chloride 20 MEQ TabCR PO SCH (08:00)
[2024-06-03] MEDS ORDERED: Sodium Phosphate Mono/Dibasic 250 MG Tab PO SCH (08:00)
[2024-06-03] MEDS ORDERED: dilTIAZem HCL 120 MG CAP.CD PO SCH (09:00)
--- NOTE | 2024-06-03 09:00 | NUR ---
pt sitting up on the side of the bed waiting for breakfast, his piv to rfa is leaking and not flushing, will have another placed, a/ox4, rather flat and anxious, follows commands and is cooperative with care, lungs have exp wheezing t/o, occ nonproductive cough, he may be swallowing, on r/a, resp even and unlabored when at rest, he becomes a bit labored with any activity, but sats do not drop, hrr, no edema noted, ppp+2, cap refill <3 sec, vs stable, afebrile, btx4, abd flat soft nontender, voids via urinal at times and is incont at times, skin c/w/d, dana monreal, one person assist to ambulate, call light in reach.
[2024-06-03 15:45] VITALS: BP 116/77
--- NOTE | 2024-06-03 18:32 | NUR ---
Pt has had an uneventful day, no complaints or needs, has a audible wheeze when he moves around. no acute changes this shift. call light in reach.
[2024-06-03 19:22] VITALS: BP 107/76
[2024-06-03 19:32] LABS: ALBUMIN 3.35 g/dL (3.75-5.01); ALPHA 1 GLOBULIN 0.35 g/dL (0.19-0.46); BETA GLOBULIN 0.87 g/dL (0.48-1.10); GAMMA 1.33 g/dL (0.62-1.51); IMMUNOFIXATION REFLEX Not Done; TOTAL PROTEIN,SERUM 6.4 g/dL (6.3-8.2)
[2024-06-04 03:42] VITALS: BP 99/64
[2024-06-04 05:56] LABS: Anion Gap 10 mmol/L (3-11); Blood Urea Nitrogen 30 mg/dL (8-24); Bun/Creatinine Ratio 23.1 (12.0-20.0); CO2, Blood 26 mmol/L (21-32); Calcium, Blood 7.2 mg/dL (8.5-10.1); Chloride, Blood 110 mmol/L (98-108); Glomerular Filtration Rate 61 (60-); Glucose, Blood 143 mg/dL (70-99); Phosphorus, Blood 2.4 mg/dL (2.5-4.9); Potassium, Blood 3.4 mmol/L (3.5-5.5); Sodium, Blood 143 mmol/L (136-145)
--- NOTE | 2024-06-04 05:56 | NUR ---
SHIFT SUMMARY: PATIENT FULLY ORIENTED. COOPERATIVE. PATIENT WEARS ATTENDS. TWO BREATHING TREATMENTS BY RT. PATIENT WHEEZING ON EXPIRATIONS.
[2024-06-04 08:16] VITALS: BP 128/82
--- NOTE | 2024-06-04 09:00 | NUR ---
pt sitting up on the side of his bed, he has audible wheezing t/o, with harsh wet cough, on r/a, a/ox4, pleasant and cooperative with care, follows commands well, denies pain, hrr, tele in place running sr to st per monitor, see strip, no edema noted, ppp+2, cap refill <3 sec, vs stable, afebrile, piv to left hand, site is clear and patent, btx4, abd flat soft nontender, voids without diff, skin c/w/d, maew, one person assist to ambulate, dana, call light in reach.
--- NOTE | 2024-06-04 13:49 | NUR ---
OBTAINED REPORT FROM PREVIOUS RN AND NOW PROVIDING CARE FOR PT.
[2024-06-04 14:56] VITALS: BP 115/70
--- NOTE | 2024-06-04 19:28 | NUR ---
SHIFT SUMMARY PT ASSISTED TO COMMODE WITH 1 PERSON ASSIST. HAS HAD NO CHANGES SINCE ASSUMING CARE OF PT.
[2024-06-04 20:04] VITALS: BP 121/76
[2024-06-05 02:51] VITALS: BP 124/78
[2024-06-05 05:39] LABS: Anion Gap 9 mmol/L (3-11); Blood Urea Nitrogen 34 mg/dL (8-24); Bun/Creatinine Ratio 27.4 (12.0-20.0); CO2, Blood 27 mmol/L (21-32); Calcium, Blood 7.1 mg/dL (8.5-10.1); Chloride, Blood 108 mmol/L (98-108); Creatinine, Blood 1.24 mg/dL (0.60-1.20); Glomerular Filtration Rate 64 (60-); Glucose, Blood 156 mg/dL (70-99); Magnesium, Blood 1.7 mg/dL (1.6-2.4); Phosphorus, Blood 3.2 mg/dL (2.5-4.9); Potassium, Blood 3.4 mmol/L (3.5-5.5); Sodium, Blood 141 mmol/L (136-145)
--- NOTE | 2024-06-05 06:36 | NUR ---
SHIFT SUMMARY: PATIENT FULLY ORIENTED. LABORED BREATHING AT REST. MULTIPLE PIVS ATTEMPTS MADE BY THREE NURSES, ONE SUCCESS THAT BECAME INFILTRATED AND REMOVED IN THE RIGHT FOREARM AND THEREBY REMOVED, AND ANOTHER SUCCESS IN THE DISTAL RIGHT FOREARM THAT IS CURRENTLY WORKING. PATIENT ASKED FOR WARM BLANKETS FOR ARMS. BREATHING TREATMENTS OFFERED, OXYGEN GIVEN FOR RELIEF. PATIENT DID NOT LEAVE BED, SLEPT POORLY LAST NIGHT.
[2024-06-05 07:39] VITALS: BP 119/83
[2024-06-05] MEDS ORDERED: Potassium Chloride 20 MEQ/15 ML UDC PO ONE (09:10)
--- NOTE | 2024-06-05 18:35 | NUR ---
SHIFT SUMMARY PT A&OX4, VSS, AMB W/ P ASSIST TO THE BSC, TOLERATING PO, VOIDING W/ DIARRHEA X2, AND DENIED PAIN. PT POTASSIUM LOW AND ORAL POTASSIUM GIVEN PER ORDER. PT REMAINS ON RA. TELE NOTIFIED THIS NURSE OF .06 SEC OF SVT, PT ASYMPTOMATIC. NO OTHER ACUTE CHANGES THIS SHIFT. CALL LIGHT WITHIN REACH AND PT ABLE TO MAKE NEEDS KNOWN.
--- NOTE | 2024-06-05 19:56 | NUR ---
MD CALEB CAME IN TO VISIT PATIENT. CALEB GAMING AND RADHA GAMING TALKED, AND RECOMMENDED A MEDICAL APPROACH WITH IV ANTIBIOTICS INSTEAD OF SURGERY. MD DANIELA NOTIFIED
[2024-06-05 20:06] VITALS: BP 128/74
[2024-06-05] MEDS ORDERED: MethylPREDNISolone Sod Succ 40 MG VIAL IV SCH (21:00)
[2024-06-06] VITALS (8 sets, daily range): BP systolic 96–199; BP diastolic 70–166
--- NOTE | 2024-06-06 05:37 | NUR ---
SHIFT SUMMARY: PATIENT ORIENTED, COOPERATIVE. DYSPNIC AT REST. WHEEZING AUDIBLY THROUGH NIGHT. [employer] SWEATER OPERATOR NOTIFIED NURSE THAT PATIENT WOULD GO INTO 150-190S SVT FOR APPROXIMATELY 4 SECONDS; THERE WERE FOUR OF THESE EPISODES DURING THE NIGHT. AT ABOUT 0500 THE PATIENT WAS SUSTAINING SVT AND EVENTUALLY AFIB WITH RVR IN 130S, OXYGEN SAT 93% ON 2 LITERS OXYGEN BY NASAL CANNULA (PATIENT PREVIOUSLY MID 90S ON ROOM AIR THROUGH NIGHT); ELEVATED BLOOD PRESSURES. MD TONO NOTIFIED. PER AGREEMENT WITH TONO OVER TELEPHONE, PATIENT WAS GIVEN 10MG BUSPAR AND CARDIAZEM 120MG CAPSULE, EARLY. PATIENT BLOOD PRESSURE WENT FROM 190S TO 140S TO 119S SYSTOLIC.
[2024-06-06] MEDS ORDERED: dilTIAZem HCL 60 MG CAP.SR PO ONE (06:00)
[2024-06-06] MEDS ORDERED: Potassium Chloride 20 MEQ/15 ML UDC PO ONE (18:20)
--- NOTE | 2024-06-06 19:11 | NUR ---
SHIFT SUMMARY PT A&OX4, VSS, ON 2L O2 NC, AMB W/ 1P ASSIST TO THE BSC, TOLERATING PO, VOIDING, AND DENIED PAIN. PT'S POTASSIUM LOW AND ORAL POTASSIUM GIVEN PER ORDER. NO TELE EVENTS THIS SHIFT. CALL LIGHT WITHIN REACH AND PT ABLE TO MAKE NEEDS KNOWN.
[2024-06-07 04:27] VITALS: BP 139/92
[2024-06-07 05:49] LABS: Bun/Creatinine Ratio 25.5 (12.0-20.0); Calcium, Blood 7.3 mg/dL (8.5-10.1); Creatinine, Blood 1.1 mg/dL (0.60-1.20)
[2024-06-07 07:33] VITALS: BP 128/89
[2024-06-07] MEDS ORDERED: MetroNIDAZOLE 500MG/NS 100 ml 100 ML IV SCH (13:00)
[2024-06-07 15:51] VITALS: BP 131/88
--- NOTE | 2024-06-07 17:54 | NUR ---
SHIFT SUMMARY: PATIENT A/OX3, PLEASANT AND COOPERATIVE c CARE. PATIENT DENIES CP/PRESSURE, N/V AND DIZZINESS. PATIENT REPORTS SOB c AMBULATION, ON 1L O2 VIA NC SAT AT 97%, LUNGS HAS INS/EXP WHEEZY T/O TO AUSCULTATION. PATIENT ON TELE, SR HR IN THE 90'S BPM c OCCASIONAL PVC/BBB. PATIENT HAS GREAT APPETITE, CONTINENT OF BLADDER AND USES URINAL AT BEDSIDE INDEPENDENTLY T/O SHIFT. PATIENT RECEIVED IV ABX/ SCHEDULED MEDS PER EMAR. VITAL SIGNS REVIEWED. PATIENT HAS NO COMPLAINTS OR DENIES NEW CONCERNED THIS SHIFT. CALL LIGHT IN REACH.
--- NOTE | 2024-06-08 03:06 | NUR ---
Report received from previous shift. Pt care assumed. Pt incontinent of BM. Pt alert and oriented x4. OOB up to BSC with assist. O2 NC in use. Taking PO well. No c/o. No distress noted. Chest x-ray completed.
[2024-06-08 04:06] VITALS: BP 132/89
[2024-06-08 05:18] LABS: Bun/Creatinine Ratio 27.3 (12.0-20.0); Calcium, Blood 7.5 mg/dL (8.5-10.1); Creatinine, Blood 1.1 mg/dL (0.60-1.20); Potassium, Blood 4.7 mmol/L (3.5-5.5)
[2024-06-08 07:35] VITALS: BP 133/88
[2024-06-08] MEDS ORDERED: Furosemide 10 MG/ML 4ML Vial IV ONE (14:00)
--- NOTE | 2024-06-08 14:35 | NUR ---
NOTE: DR. SMITH IN ROOM AT THIS TIME FOR CONSULT.
[2024-06-08 15:24] VITALS: BP 146/96
--- NOTE | 2024-06-08 18:12 | NUR ---
SHIFT SUMMARY: PATIENT A/OX3, PLEASANT AND COOPERATIVE c CARE. PATIENT DENIES CP/PRESSURE, DIZZINESS AND N/V. NO EVENTS ON TELE, SR HR IN THE HIGH 80'S BPM c OCCASIONAL PVC/BBB. PATIENT ON RA, LUNGS CONTINUES TO HAVE INS/EXP WHEEZY T/O TO AUSCULTATION. PATIENT ON IV SOLUMEDROL, RECEIVED BX TX PRN ADMINISTERED BY RT. PATIENT HAS PLUS 1 EDEMA TO BLE'S, DIURESED c OT IV LASIX PER ORDER, SCD'S IN PLACED TO BLE'S AND ELEVATED ON PILLOWS T/O SHIFT. PATIENT RECEIVED BEDBATH/LINEN CHANGED TODAY, UP IN THE RECLINER CHAIR FOR ABOUT 2 HRS AND REQUESTED BACK IN BED. PATIENT CONTINENT OF BLADDER USES URINAL IN BED AND CONT/INCON OF BOWEL, ATTENDS PLACED AND CHANGED PRN. PATIENT RECEIVED IV ABX/SCHEDULED MEDS PER EMAR. VITAL SIGNS REVIEWED. CALL LIGHT IN REACH.
[2024-06-08 19:56] VITALS: BP 139/87
[2024-06-09 04:07] VITALS: BP 136/89
[2024-06-09 04:24] LABS: PCO2 Arterial 45.8 mmHg (35-45); PO2 Arterial 78.5 mmHg (80-100); pH Blood Arterial 7.45 (7.35-7.45)
--- NOTE | 2024-06-09 05:32 | NUR ---
SHIFT SUMMARY PT A&OX4. PT REPORTED FEELING SOB AT START OF SHIFT AND REQUESTED OXYGEN WHILE SLEEPING. RT AT BEDISE FOR BREATHING TREATMENT TWICE. EXPIRATORY WHEEZE NOTED T/O LUNGS. USING SCD's T/O NIGHT. CONTINUING IV ABX. NO C/O PAIN. VSS. BED IN LOWEST POSITION AND CALL LIGHT IN REACH.
[2024-06-09 07:16] VITALS: BP 133/73
[2024-06-09] MEDS ORDERED: Albuterol HFA200 ACT/6.7 GM INH INH PRN (07:50)
[2024-06-09] MEDS ORDERED: PredniSONE 20 MG Tab PO ONE (08:05)
--- NOTE | 2024-06-09 08:05 | NUR ---
NOTE: RECEIVED A CALL FROM DR. GARCIA AT [phone]. PER TO DC'D IV SOLUMEDROL AND GIVE PO 40 MG PREDNISONE NOW.
[2024-06-09] MEDS ORDERED: Furosemide 10 MG/ML 4ML Vial IV ONE (09:45)
[2024-06-09 15:19] VITALS: BP 133/90
--- NOTE | 2024-06-09 18:23 | NUR ---
SHIFT SUMMARY: PATIENT A/OX3, PLEASANT AND COOPERATIVE c CARE. PATIENT DENIES CP/PRESSURE, DIZZINESS AND N/V. REPORTS SOB c MOBILITY AND AMBULATION. NO EVENTS ON TELE. EDEMA TO RLE. VENOUS DUPLEX STUDY ORDERED TO SITE TO ROLL OUT DVT-COMPLETED THIS PM, AWAITING FOR RESULT. SCD'S IN PLACED TO BLE'S AND ELEVATED ON PILLOWS T/O THE DAY. PATIENT CONTINUES TO HAVE EXP WHEEZY T/O TO AUSCULTATION, RA SATTING 94-97%. RECEIVED OT DOSE OF IV LASIX. RT AT BEDSIDE FOR BREATHING TX, BUT PATIENT DECLINED. PATIENT RECEIVED IV ABX/SCHEDULED MEDS PER EMAR. VITAL SIGNS REVIEWED. PATIENT CURRENTLY SITTING UP IN THE RECLINER CHAIR c CALL LIGHT IN REACH.
[2024-06-09 20:11] VITALS: BP 138/92
[2024-06-10 03:27] VITALS: BP 146/107
--- NOTE | 2024-06-10 04:21 | NUR ---
SHIFT SUMMARY PATIENT WAS RESTLESS ALL NIGHT, ASKED AT LEAST 3 TIMES FOR COFFEE, GIVEN. TELE WAS SR 84 WITH PAC'S AND SERVICE LINE COORDINATOR CALLED ME ONCE TO REPORT A SHORT EPISODE OF HR IN THE 150'S, PATIENT WAS CUSING AND UPSET AT SOMETHING DURING THAT TIME, BUT WAS ASLEEP SOON AFTER.
[2024-06-10 05:28] LABS: Bun/Creatinine Ratio 27.4 (12.0-20.0); Calcium, Blood 7.9 mg/dL (8.5-10.1); Creatinine, Blood 1.24 mg/dL (0.60-1.20)
[2024-06-10 07:29] VITALS: BP 133/79
[2024-06-10] MEDS ORDERED: ALBU2.5V5 INH (12:42)
[2024-06-10] MEDS ORDERED: DILT120ERA PO (12:42)
[2024-06-10] MEDS ORDERED: DULERA 200 MCG-13 GM INH (12:43)
[2024-06-10] MEDS ORDERED: PANT40 PO (12:43)
--- NOTE | 2024-06-10 12:53 | NUR ---
End of Shift Report PT A&O x3, expiratory wheezes, right lower lobe diminished lung sounds, diffuse wheezes on expiration. NSR 90s contineous monitoring on Tele. Right foot swollen non pitting edema. Flagyl given VSS, 97% O2 saturation, T97. . left arm bruising on lateral aspect of forearm. No signs of distress.
[2024-06-10 14:54] VITALS: BP 136/85
--- NOTE | 2024-06-10 19:10 | NUR ---
PT ALERT AND ORIENTED TIMES 3. VSS, LUNG SOUNDS RIGHT LOWER LOBE DIMINISHED DIFFUSED WHEEZING THROUGHOUT LUNG FIELD EXPIRTORY. PATIENT IS CLAMMY/DIAPHORIC WITH NO TEMPERATURE. PATIENT DENIES CHEST PAIN OR SHORTNESS OF BREATH. D/Aaron PATIENT AND PATIENT REFUSED TO LEAVE. RIGHT FOOT SWELLING, NO PITTING EDEMA. PATIENT ABLE TO AMBULATE INDEPENDENTLY. GIVEN ANTIBIOTICS TWICE DURNING SHIFT.O2 SATURATION MONITORED DURNING SHIFT AND DESATURATION OCCURED.
[2024-06-10 20:15] VITALS: BP 147/76
--- NOTE | 2024-06-11 06:16 | NUR ---
SHIFT SUMMARY PT SLEPT OFF AND ON THROUGHOUT THE NIGHT. PT SHOULD BE DISCHARGED TODAY. PT COOPERATIVE WITH CARE. BED IN LOWEST POSITION AND CALL LIGHT IS WITHIN HIS REACH. WILL CONTINUE TO MONITOR.
[2024-06-11 07:16] VITALS: BP 141/95
--- NOTE | 2024-06-11 20:36 | NUR ---
DISCHARGE SUMMARY: A&Ox3-4. TOLD FLARE MAN AT 7:45AM HE WOULD BE LEAVING AT 0800. AT 0800, PT CALLED REQUESTING WHEELCHAIR TRANSPORT. DC SUMMARY IN FROM YESTERDAY; CALL TO DR GOMEZ WHO AGREED WITH PT DISCHARGE. PAPERWORK PRINTED. PT DECLINED MOST OF PHYSICAL EXAM. HAD ALREADY REMOVED OWN IV AND TELE LEADS. REQUESTED TO TAKE NEBULIZER TUBING AND MOUTHPIECE. LEFT UNIT VIA WHEELCHAIR ESCORT BY DILSHAD WAYNE, WITH ALL BELONGINGS AND DISCHARGE PACKET AT [phone].
== END 2024-06-11 08:27 | disposition home or self-care (01) | DRG 177 ==
LOC: ER 20:30 → MEDS 22:31 → ICUE 22:31 → PCU 22:31 → ICUE 23:04 → PCU 05-30 08:18 → MEDS 05-31 16:35
PROVIDERS: Emergency Medicine; Family Medicine; Hospitalist; Internal Medicine; Student in an Organized Health Care Education/Training Program; ADMIT Internal Medicine
PROC: 30233N1 Transfusion of Nonautologous Red Blood Cells into Peripheral Vein, Percutaneous Approach (ICD-10-PCS; principal; 2024-05-28)
PROC: 4A033R1 Measurement of Arterial Saturation, Peripheral, Percutaneous Approach (ICD-10-PCS; 2024-06-09)
DX: J69.0 Pneumonitis due to inhalation of food and vomit (principal); I21.4 Non-ST elevation (NSTEMI) myocardial infarction; J96.01 Acute respiratory failure with hypoxia; N17.9 Acute kidney failure, unspecified; J44.1 Chronic obstructive pulmonary disease with (acute) exacerbation; J44.0 Chronic obstructive pulmonary disease with (acute) lower respiratory infection; D62 Acute posthemorrhagic anemia; I48.20 Chronic atrial fibrillation, unspecified; I24.89 Other forms of acute ischemic heart disease; J45.902 Unspecified asthma with status asthmaticus; J15.8 Pneumonia due to other specified bacteria; E86.9 Volume depletion, unspecified; D50.9 Iron deficiency anemia, unspecified; E87.6 Hypokalemia; E83.39 Other disorders of phosphorus metabolism; F32.A Depression, unspecified; K21.9 Gastro-esophageal reflux disease without esophagitis; E86.0 Dehydration; R13.12 Dysphagia, oropharyngeal phase; F17.210 Nicotine dependence, cigarettes, uncomplicated; F12.90 Cannabis use, unspecified, uncomplicated; E87.5 Hyperkalemia; J43.9 Emphysema, unspecified; F41.9 Anxiety disorder, unspecified; Z88.8 Allergy status to other drugs, medicaments and biological substances; Z86.73 Personal history of transient ischemic attack (TIA), and cerebral infarction without residual deficits; Z79.01 Long term (current) use of anticoagulants; Z79.899 Other long term (current) drug therapy; Z79.82 Long term (current) use of aspirin; Z79.51 Long term (current) use of inhaled steroids; Z79.891 Long term (current) use of opiate analgesic; Z98.890 Other specified postprocedural states; Z90.89 Acquired absence of other organs
CPT/HCPCS: 0241U; 36415; 36430; 36600; 71045; 71260; 74230; 76770; 78451; 80048; 80053; 80069; 81003; 82272; 82550; 82570; 82728; 82784; 82803; 83521; 83540; 83550; 83735; 83880; 84100; 84132; 84155; 84156; 84165; 84484; 84550; 85014; 85018; 85025; 85045; 85610; 85730; 86334; 86850; 86900; 86901; 86920; 86923; 92526; 92610; 92611; 93005; 93010; 93306; 93971; 94640; 94644; 94664; 94760; 94761; 94762; 96374; 99285-25; A9270; A9500; C9113; J0280; J0456; J0696; J1644; J1940; J2785; J2916; J2919; J3480; J7030; J7040; J7050; J7060; J7512; P9016; Q9967

== ENCOUNTER → 2024-08-19 | Outpatient (CLI) | payer MEDICARE, OTHER ==
[~2024-08-19] MED LIST changes: +ALBU2.5V5 INH; +DILT120ERA PO; +DULERA 200 MCG-13 GM INH; +HYDCHL25 PO; +PANT40 PO
[2024-08-19 17:44] LABS: BASOPHILS ABSOLUTE AUTO 0.06 K/mm3 (0.00-0.23); BASOPHILS PERCENT AUTO 1 % (0-2); EOSINOPHILS ABSOLUTE AUTO 0.61 K/mm3 (0.00-0.68); EOSINOPHILS PERCENT AUTO 6 % (0-6); Hematocrit 37.8 % (37.0-53.0); IMMATURE GRAN ABSOLUTE AUTO 0.04 K/mm3 (0.00-0.10); IMMATURE GRAN PERCENT AUTO 0 % (0-1); LYMPHOCYTES ABSOLUTE AUTO 1.82 K/mm3 (0.84-5.20); LYMPHOCYTES PERCENT AUTO 19 % (21-46); MONOCYTES PERCENT AUTO 7 % (4-13); Mean Corpuscular HGB 23.8 pg (26.0-34.0); Mean Corpuscular HGB Conc 29.1 g/dL (31.5-36.5); Mean Corpuscular Volume 82 fL (80-100); Mean Platelet Volume 10.1 fL (9.1-12.4); NEUTROPHILS ABSOLUTE AUTO 6.46 K/mm3 (1.96-9.15); NEUTROPHILS PERCENT AUTO 67 % (41-73); Platelet Count 269 K/mm3 (150-400); RDW Coefficient Variation 19.4 % (11.7-14.2); RDW Standard Deviation 58.1 fL (35.1-46.3); Red Blood Cell Count 4.63 M/mm3 (4.30-5.90); White Blood Cell Count 9.69 K/mm3 (4.00-11.30)
[2024-08-20 01:01] LABS: Alanine Aminotransfer (ALT/SGP 17 U/L (12-78); Albumin, Blood 3.7 g/dL (3.4-5.0); Albumin/Globulin Ratio 0.9 (0.8-1.8); Alk Phos 109 U/L (50-136); Anion Gap 15 mmol/L (3-11); Aspartate Aminotrans (AST/SGOT 16 U/L (12-37); Bilirubin, Total 0.3 mg/dL (0.1-1.0); Blood Urea Nitrogen 17 mg/dL (8-24); Bun/Creatinine Ratio 13.8 (12.0-20.0); CHOL/HDL RATIO 2.9; CO2, Blood 22 mmol/L (21-32); Calcium, Blood 9.4 mg/dL (8.5-10.1); Chloride, Blood 106 mmol/L (98-108); Cholesterol 107 mg/dL (50-200); Creatinine, Blood 1.23 mg/dL (0.60-1.20); Globulin, Blood 4.2 g/dL (2.2-4.0); Glomerular Filtration Rate 65 (60-); Glucose, Blood 93 mg/dL (70-99); HDL Cholesterol 37 mg/dL (>39); LDL/HDL RATIO 1.6; Low Density Lipoprotein Chol 57 mg/dL (0-110); Potassium, Blood 4.7 mmol/L (3.5-5.5); Sodium, Blood 138 mmol/L (136-145); Total Protein, Blood 7.9 g/dL (6.4-8.2); Triglycerides 63 mg/dL (30-160); Very Low Density Lipoprot Chol 12 mg/dL (6-32)
== END | disposition home or self-care (01) ==
LOC: LAB SHORT 17:01 → LAB 17:01
PROVIDERS: Nurse Practitioner Family
DX: Z12.5 Encounter for screening for malignant neoplasm of prostate (principal); Z13.220 Encounter for screening for lipoid disorders; I10 Essential (primary) hypertension
CPT/HCPCS: 80053; 80061; 84443; 85025; G0103

== ENCOUNTER → 2024-12-30 | Outpatient (CLI) | payer MEDICARE, OTHER ==
[2024-12-30 18:27] LABS: BASOPHILS ABSOLUTE AUTO 0.07 K/mm3 (0.00-0.23); BASOPHILS PERCENT AUTO 1 % (0-2); EOSINOPHILS ABSOLUTE AUTO 0.54 K/mm3 (0.00-0.68); EOSINOPHILS PERCENT AUTO 7 % (0-6); Hematocrit 36.8 % (37.0-53.0); IMMATURE GRAN ABSOLUTE AUTO 0.05 K/mm3 (0.00-0.10); IMMATURE GRAN PERCENT AUTO 1 % (0-1); LYMPHOCYTES ABSOLUTE AUTO 1.14 K/mm3 (0.84-5.20); LYMPHOCYTES PERCENT AUTO 15 % (21-46); MONOCYTES ABSOLUTE AUTO 0.57 K/mm3 (0.16-1.47); MONOCYTES PERCENT AUTO 7 % (4-13); Mean Corpuscular HGB 19.1 pg (26.0-34.0); Mean Corpuscular HGB Conc 27.2 g/dL (31.5-36.5); Mean Corpuscular Volume 70 fL (80-100); Mean Platelet Volume 9.7 fL (9.1-12.4); NEUTROPHILS ABSOLUTE AUTO 5.36 K/mm3 (1.96-9.15); NEUTROPHILS PERCENT AUTO 69 % (41-73); Platelet Count 333 K/mm3 (150-400); RDW Coefficient Variation 18.5 % (11.7-14.2); RDW Standard Deviation 45.6 fL (35.1-46.3); Red Blood Cell Count 5.23 M/mm3 (4.30-5.90); White Blood Cell Count 7.73 K/mm3 (4.00-11.30)
[2024-12-30 20:19] LABS: Percent Saturation 3.2 % (20.0-50.0)
== END ==
LOC: LAB SHORT 08:38 → LAB 08:38
PROVIDERS: Nurse Practitioner Family
DX: D64.9 Anemia, unspecified (principal)
CPT/HCPCS: 82728; 83540; 83550; 85025

== ENCOUNTER → 2025-06-16 | Outpatient (CLI) | payer MEDICARE, OTHER ==
[2025-06-16 18:57] LABS: BASOPHILS ABSOLUTE AUTO 0.06 K/mm3 (0.00-0.23); BASOPHILS PERCENT AUTO 1 % (0-2); EOSINOPHILS ABSOLUTE AUTO 0.70 K/mm3 (0.00-0.68); EOSINOPHILS PERCENT AUTO 9 % (0-6); Hematocrit 52.9 % (37.0-53.0); Hemoglobin 16.5 g/dL (13.5-17.5); IMMATURE GRAN ABSOLUTE AUTO 0.02 K/mm3 (0.00-0.10); IMMATURE GRAN PERCENT AUTO 0 % (0-1); LYMPHOCYTES ABSOLUTE AUTO 1.72 K/mm3 (0.84-5.20); LYMPHOCYTES PERCENT AUTO 23 % (21-46); MONOCYTES ABSOLUTE AUTO 0.44 K/mm3 (0.16-1.47); MONOCYTES PERCENT AUTO 6 % (4-13); Mean Corpuscular HGB Conc 31.2 g/dL (31.5-36.5); Mean Corpuscular Volume 92 fL (80-100); NEUTROPHILS ABSOLUTE AUTO 4.65 K/mm3 (1.96-9.15); NEUTROPHILS PERCENT AUTO 61 % (41-73); NRBC ABSOLUTE 0.00 K/mm3 (0.00-0.02); NRBC Auto 0.0 /100 WBC (0.0-0.2); Platelet Count 234 K/mm3 (150-400); RDW Coefficient Variation 16.7 % (11.7-14.2); RDW Standard Deviation 55.8 fL (35.1-46.3)
[2025-06-16 20:07] LABS: Alanine Aminotransfer (ALT/SGP 24 U/L (12-78); Albumin, Blood 3.9 g/dL (3.4-5.0); Albumin/Globulin Ratio 0.9 (0.8-1.8); Anion Gap 7 mmol/L (3-11); Aspartate Aminotrans (AST/SGOT 14 U/L (12-37); Bilirubin, Total 0.8 mg/dL (0.1-1.0); Blood Urea Nitrogen 18 mg/dL (8-24); CHOL/HDL RATIO 4.4; CO2, Blood 30 mmol/L (21-32); Calcium, Blood 8.8 mg/dL (8.5-10.1); Chloride, Blood 103 mmol/L (98-108); Cholesterol 131 mg/dL (50-200); Creatinine, Blood 1.28 mg/dL (0.60-1.20); Globulin, Blood 4.4 g/dL (2.2-4.0); Glucose, Blood 84 mg/dL (70-99); HDL Cholesterol 30 mg/dL (>39); LDL/HDL RATIO 2.7; Low Density Lipoprotein Chol 81 mg/dL (0-110); Potassium, Blood 4.6 mmol/L (3.5-5.5); Sodium, Blood 135 mmol/L (136-145); Thyroid Stimulating Hormone 2.690 uIU/mL (0.360-4.800); Total Protein, Blood 8.3 g/dL (6.4-8.2); Triglycerides 100 mg/dL (30-160); Very Low Density Lipoprot Chol 20 mg/dL (6-32)
[2025-06-16 20:14] LABS: Ferritin, Serum 48.0 ng/mL (26-388); Total Iron Binding Capacity 290.0 ug/dL (250-450)
== END ==
LOC: LAB SHORT 17:14 → LAB 17:14
PROVIDERS: Nurse Practitioner Family
DX: E55.9 Vitamin D deficiency, unspecified (principal); I10 Essential (primary) hypertension; E61.1 Iron deficiency
CPT/HCPCS: 80053; 80061; 82306; 82728; 83540; 83550; 84443; 85025

== ENCOUNTER 2025-11-05 11:26 | Emergency (ER) | payer MEDICARE, OTHER ==
[~2025-11-05] VITALS: Ht 172.7 cm; Wt 72.6 kg
[2025-11-05] MEDS ORDERED: Ipratropium/Albuterol SulF 2.5-0.5MG/3 ML Amp INH ONE (11:45)
[2025-11-05 12:13] LABS: BASOPHILS ABSOLUTE AUTO 0.04 K/mm3 (0.00-0.23); BASOPHILS PERCENT AUTO 1 % (0-2); EOSINOPHILS ABSOLUTE AUTO 0.08 K/mm3 (0.00-0.68); EOSINOPHILS PERCENT AUTO 1 % (0-6); Hemoglobin 18.8 g/dL (13.5-17.5); IMMATURE GRAN ABSOLUTE AUTO 0.02 K/mm3 (0.00-0.10); IMMATURE GRAN PERCENT AUTO 0 % (0-1); LYMPHOCYTES ABSOLUTE AUTO 1.68 K/mm3 (0.84-5.20); LYMPHOCYTES PERCENT AUTO 26 % (21-46); MONOCYTES ABSOLUTE AUTO 0.31 K/mm3 (0.16-1.47); MONOCYTES PERCENT AUTO 5 % (4-13); Mean Corpuscular HGB Conc 33.8 g/dL (31.5-36.5); Mean Corpuscular Volume 88 fL (80-100); NEUTROPHILS ABSOLUTE AUTO 4.37 K/mm3 (1.96-9.15); NEUTROPHILS PERCENT AUTO 67 % (41-73); NRBC ABSOLUTE 0.00 K/mm3 (0.00-0.02); NRBC Auto 0.0 /100 WBC (0.0-0.2); Platelet Count 268 K/mm3 (150-400); RDW Coefficient Variation 14.0 % (11.7-14.2); RDW Standard Deviation 45.4 fL (35.1-46.3)
[2025-11-05 12:17] LABS: Hematocrit 55.6 % (37.0-53.0)
[2025-11-05 12:22] LABS: Alanine Aminotransfer (ALT/SGP 20.0 U/L (12-78); Albumin, Blood 3.3 g/dL (3.4-5.0); Albumin/Globulin Ratio 0.7 (0.8-1.8); Anion Gap 12.0 mmol/L (3-11); Aspartate Aminotrans (AST/SGOT 20.0 U/L (12-37); Bilirubin, Total 1.1 mg/dL (0.1-1.0); Blood Urea Nitrogen 17.0 mg/dL (8-24); CO2, Blood 26.0 mmol/L (21-32); Calcium, Blood 9.2 mg/dL (8.5-10.1); Chloride, Blood 100.0 mmol/L (98-108); Creatinine, Blood 1.26 mg/dL (0.60-1.20); Globulin, Blood 4.6 g/dL (2.2-4.0); Glucose, Blood 108.0 mg/dL (70-99); Potassium, Blood 3.7 mmol/L (3.5-5.5); Sodium, Blood 134.0 mmol/L (136-145); Total Protein, Blood 7.9 g/dL (6.4-8.2)
[2025-11-05] MEDS ORDERED: ALBU90OI INH (12:59)
[2025-11-05] MEDS ORDERED: Prednisone20 MG PO (12:59)
[2025-11-05 13:42] VITALS: BP 124/96
== END 2025-11-05 13:50 | disposition home or self-care (01) ==
LOC: ER 11:26
PROVIDERS: Emergency Medicine
DX: J43.9 Emphysema, unspecified (principal); I10 Essential (primary) hypertension; I48.91 Unspecified atrial fibrillation; K21.9 Gastro-esophageal reflux disease without esophagitis; F17.210 Nicotine dependence, cigarettes, uncomplicated; Z88.8 Allergy status to other drugs, medicaments and biological substances
CPT/HCPCS: 71046; 80053; 83880; 84484; 85025; 96374; 99285-25; J2919